=== PATIENT | female | born 1960 | race Caucasian/White ===

== ENCOUNTER 2016-07-25 17:36 | Emergency (ER) | payer MEDICARE, MEDICAID ==
--- NOTE | 2016-07-25 17:49 | ER Document Report ---
ED Medical Screen (RME) - General Stated Complaint: ABDOMINAL PAIN Time seen by provider: 17:48 Mode of Arrival: Ambulatory Information source: Patient Notes: 55-year-old female complaining of deep left-sided abdominal pain and now thinks she has another abscess to the area. She has a history of Crohn's disease and has mesh in her abdomen. She has had an abscess in that area that was incised January 2016. No fever, no dysuria. Chronic diarrhea no vomiting today. TRAVEL OUTSIDE OF THE [place] IN LAST 30 DAYS: No - Related Data Allergies/Adverse Reactions: adhesive tape [Adhesive Tape] Allergy (Verified 08/11/15 08:09) cephalexin monohydrate [From Keflex] Allergy (Verified 08/11/15 08:09) codeine [Codeine] Allergy (Verified 08/11/15 08:09) erythromycin base [Erythromycin Base] Allergy (Verified 08/11/15 08:09) metronidazole [From Flagyl] Allergy (Verified 08/11/15 08:09) Metronidazole HCl [From Flagyl] Allergy (Verified 08/11/15 08:09) oxaprozin [From Daypro] Allergy (Verified 08/11/15 08:09) Penicillins Allergy (Verified 08/11/15 08:09) Past Medical History - Past Medical History Cardiac Medical History: Reports: Hx Hypercholesterolemia Denies: Hx Atrial Fibrillation, Hx Coronary Artery Disease, Hx Heart Attack, Hx Hypertension, Hx Peripheral Vascular Disease, Hx Pulmonary Embolism Pulmonary Medical History: Reports: Hx Asthma Endocrine Medical History: Denies: Hx Diabetes Mellitus Type 1, Hx Diabetes Mellitus Type 2, Hx Graves' Disease GI Medical History: Reports: Hx Crohn's Disease Musculoskeltal Medical History: Reports Hx Arthritis, Reports Hx Fibromyalgia Psychiatric Medical History: Denies: Hx Depression Infectious Medical History: Denies: Hx MRSA Past Surgical History: Reports: Hx Abdominal Surgery, Hx Appendectomy, Hx Bowel Surgery - small bowel, hernia x 2, Hx Hysterectomy - Immunizations Immunizations up to date: Yes Hx Diphtheria, Pertussis, Tetanus Vaccination: Yes Physical Exam - Vital signs Vitals: Temp Pulse Resp BP Pulse Ox 98.4 F 69 18 151/58 H 97 07/25/16 17:46 07/25/16 17:46 07/25/16 17:46 07/25/16 17:46 07/25/16 17:46 Course - Vital Signs Vital signs: Temp Pulse Resp BP Pulse Ox 98.4 F 69 18 151/58 H 97 07/25/16 17:46 07/25/16 17:46 07/25/16 17:46 07/25/16 17:46 07/25/16 17:46
[2016-07-25] MEDS ORDERED: CLINDAMYCIN 600 MG/D5W RTU 50 ML IV ONE (18:28)
[2016-07-25] MEDS ORDERED: MORPHINE SULFATE 10 MG/ML INJ IV ONE (18:28)
--- NOTE | 2016-07-25 18:31 | ER Document Report ---
ED GI/ - General Chief Complaint: Abdominal Pain Stated Complaint: ABDOMINAL PAIN Mode of Arrival: Ambulatory Information source: Patient TRAVEL OUTSIDE OF THE [place] IN LAST 30 DAYS: No - HPI Patient complains to provider of: Abdominal pain Onset: Just prior to arrival Timing/Duration: Sudden Quality of pain: Achy, Burning Severity at maximum: Moderate Severity in ED: Moderate Pain Level: 3 Location: Other - Mid left abdominal wall Associated symptoms: None Exacerbated by: Denies Relieved by: Denies Similar symptoms previously: Yes Recently seen / treated by doctor: No Notes: 07/25/16 18:29 Patient is a 55-year-old female with a history of Crohn's disease with multiple abdominal surgeries previously and mesh contained in the periumbilical area, who presents to the emergency room today complaining of a painful area of increased erythema in the left mid abdomen consistent with abdominal wall abscess and cellulitis which she's had in the past, these symptoms started just approximate 1 hour prior to arrival in the emergency room, she states last time she had one of these she waited overnight for treatment and the abscess had grown to a much larger size, therefore she came to the emergency room immediately upon noticing it, she denies any fevers, no injury, no nausea or vomiting - Related Data Allergies/Adverse Reactions: adhesive tape [Adhesive Tape] Allergy (Verified 08/11/15 08:09) cephalexin monohydrate [From Keflex] Allergy (Verified 08/11/15 08:09) codeine [Codeine] Allergy (Verified 08/11/15 08:09) erythromycin base [Erythromycin Base] Allergy (Verified 08/11/15 08:09) metronidazole [From Flagyl] Allergy (Verified 08/11/15 08:09) Metronidazole HCl [From Flagyl] Allergy (Verified 08/11/15 08:09) oxaprozin [From Daypro] Allergy (Verified 08/11/15 08:09) Penicillins Allergy (Verified 08/11/15 08:09) Past Medical History - General Information source: Patient - Social History Smoking Status: Never Smoker Family History: CAD, DM, Hyperlipidemia - Past Medical History Cardiac Medical History: Reports: Hx Hypercholesterolemia Denies: Hx Atrial Fibrillation, Hx Coronary Artery Disease, Hx Heart Attack, Hx Hypertension, Hx Peripheral Vascular Disease, Hx Pulmonary Embolism Pulmonary Medical History: Reports: Hx Asthma Endocrine Medical History: Denies: Hx Diabetes Mellitus Type 1, Hx Diabetes Mellitus Type 2, Hx Graves' Disease Renal/ Medical History: Denies: Hx Peritoneal Dialysis GI Medical History: Reports: Hx Crohn's Disease Musculoskeltal Medical History: Reports Hx Arthritis, Reports Hx Fibromyalgia Psychiatric Medical History: Denies: Hx Depression Infectious Medical History: Denies: Hx MRSA Past Surgical History: Reports: Hx Abdominal Surgery, Hx Appendectomy, Hx Bowel Surgery - small bowel, hernia x 2, Hx Hysterectomy - Immunizations Immunizations up to date: Yes Hx Diphtheria, Pertussis, Tetanus Vaccination: Yes Review of Systems - Review of Systems Constitutional: No symptoms reported EENT: No symptoms reported Cardiovascular: No symptoms reported Respiratory: No symptoms reported Gastrointestinal: No symptoms reported Genitourinary: No symptoms reported Female Genitourinary: No symptoms reported Musculoskeletal: No symptoms reported Skin: See HPI Hematologic/Lymphatic: No symptoms reported Neurological/Psychological: No symptoms reported -: Yes All other systems reviewed and negative Physical Exam - Vital signs Vitals: Temp Pulse Resp BP Pulse Ox 98.4 F 69 18 151/58 H 97 07/25/16 17:46 07/25/16 17:46 07/25/16 17:46 07/25/16 17:46 07/25/16 17:46 Interpretation: Normal - General General appearance: Appears well, Alert - HEENT Head: Normocephalic, Atraumatic Eyes: Normal Pupils: PERRL - Respiratory Respiratory status: No respiratory distress Chest status: Nontender Breath sounds: Normal Chest palpation: Normal - Cardiovascular Rhythm: Regular Heart sounds: Normal auscultation Murmur: No - Abdominal Inspection: Normal Distension: No distension Bowel sounds: Normal Tenderness: Tender - In the left mid abdomen adjacent to the umbilicus there is a 2 cm area of mild erythema and induration, there is tenderness, no fluctuance , no drainage Organomegaly: No organomegaly - Back Back: Normal, Nontender - Extremities General upper extremity: Normal inspection, Nontender, Normal color, Normal ROM , Normal temperature General lower extremity: Normal inspection, Nontender, Normal color, Normal ROM , Normal temperature, Normal weight bearing. No: Christina's sign - Neurological Neuro grossly intact: Yes Cognition: Normal Orientation: AAOx4 [place] Coma Scale Eye Opening: Spontaneous [place] Coma Scale Verbal: Oriented [place] Coma Scale Motor: Obeys Commands [place] Coma Scale Total: 15 Speech: Normal Motor strength normal: LUE, RUE, LLE, RLE Sensory: Normal - Psychological Associated symptoms: Normal affect, Normal mood - Skin Skin Temperature: Warm Skin Moisture: Dry Skin Color: Normal Course - Re-evaluation Re-evalutation: 07/25/16 18:30 I performed a bedside ultrasound to evaluate the area of concern, no fluid collection was observed 07/25/16 20:15 Lab findings were discussed with patient at bedside, she was given a dose of IV clindamycin as well as pain medication, she was advised to follow-up with her primary care provider in one to 2 days or return if symptoms worsen, she will be discharged with antibiotics and pain medication, patient acknowledges understanding and agreement with this plan - Vital Signs Vital signs: Temp Pulse Resp BP Pulse Ox 98.4 F 64 18 151/58 H 97 07/25/16 17:47 07/25/16 17:47 07/25/16 17:47 07/25/16 17:47 07/25/16 17:47 - Laboratory Result Diagrams: 07/25/16 18:20 07/25/16 18:20 Laboratory results interpreted by me: 07/25/16 07/25/16 07/25/16 18:20 18:20 18:50 RDW 14.4 H BUN 21 H Lipase 325.0 H Urine Blood MODERATE H Procedures - Ultrasound/Bedside Ultrasound/Bedside Time completed: 18:31 Ultrasound: Other - Ultrasound was performed over the area of erythema and induration left mid abdomen, no fluid collection was noted Discharge - Discharge Clinical Impression: Abdominal wall cellulitis Condition: Stable Disposition: HOME, SELF-CARE Instructions: Cellulitis ([facility]) Additional Instructions: Follow up with your primary care provider in one to 2 days. Return to the emergency room immediately if symptoms worsen or any additional concerns. Prescriptions: Clindamycin HCl [Cleocin 150 mg Capsule] 450 mg PO Q6 10 Days Hydrocodone/Acetaminophen [Hydrocodon-Acetaminophen 5-325] 1 each PO Q6 #20 tablet
[2016-07-25 18:37] LABS: ABSOLUTE BASOPHILS # (AUTO) 0.1 10^3/uL (0.0-0.2); ABSOLUTE EOSINOPHILS # (AUTO) 0.1 10^3/uL (0.0-0.6); ABSOLUTE LYMPHOCYTES (AUTO) 2.7 10^3/uL (0.5-4.7); ABSOLUTE MONOCYTES (AUTO) 0.6 10^3/uL (0.1-1.4); ABSOLUTE NEUT (AUTO) 3.8 10^3/uL (1.7-8.2); BASOPHILS % (AUTO) 0.8 % (0-2); HEMATOCRIT 39.5 % (36.0-47.0); HEMOGLOBIN 13.3 g/dL (12.0-15.5); HGB HCT DIFFERENCE 0.4; LYMPHOCYTES % (AUTO) 36.6 % (13-45); MEAN CORPUSCULAR HEMOGLOBIN 29.7 pg (27.0-33.4); MEAN CORPUSCULAR HGB CONC 33.6 g/dL (32.0-36.0); MEAN CORPUSCULAR VOLUME 88 fl (80-97); MONOCYTES % (AUTO) 8.4 % (3-13); RED BLOOD COUNT 4.47 10^6/uL (3.72-5.28); RED CELL DISTRIBUTION WIDTH 14.4 % (11.5-14.0); SEGMENTED NEUTROPHILS % (AUTO) 52.2 % (42-78); WHITE BLOOD COUNT 7.3 10^3/uL (4.0-10.5)
[2016-07-25 18:55] LABS: ALANINE AMINOTRANSFERASE 23 U/L (9-52); ALBUMIN 3.9 g/dL (3.5-5.0); ALKALINE PHOSPHATASE 118 U/L (38-126); ANION GAP 8 (5-19); ASPARTATE AMINO TRANSFERASE 24 U/L (14-36); BILIRUBIN,TOTAL 0.5 mg/dL (0.2-1.3); BLOOD UREA NITROGEN 21 mg/dL (7-20); CALCIUM 9.7 mg/dL (8.4-10.2); CARBON DIOXIDE 27 mmol/L (22-30); CHLORIDE 106 mmol/L (98-107); CREATININE RESULT 0.92 mg/dL (0.52-1.25); GLUCOSE 93 mg/dL (75-110); POTASSIUM 4.3 mmol/L (3.6-5.0); SODIUM 141.4 mmol/L (137-145); TOTAL PROTEIN 7.4 g/dL (6.3-8.2)
[2016-07-25 19:17] LABS: APPEARANCE,URINE CLEAR; BILIRUBIN,URINE NEGATIVE (NEGATIVE); GLUCOSE, URINE NEGATIVE (NEGATIVE); KETONES,URINE NEGATIVE (NEGATIVE); LEUKOCYTE ESTERASE,URINE NEGATIVE (NEGATIVE); NITRITE,URINE NEGATIVE (NEGATIVE); PROTEIN,URINE NEGATIVE (NEGATIVE); URINE SPECIFIC GRAVITY 1.019; UROBILINOGEN,URINE NEGATIVE mg/dL (<2.0)
[2016-07-25 20:35] VITALS: BP 121/65
== END 2016-07-25 20:34 | disposition home or self-care (01) ==
LOC: ER 17:36
DX: L03.311 Cellulitis of abdominal wall (principal); R10.9 Unspecified abdominal pain; K50.90 Crohn's disease, unspecified, without complications; Z98.890 Other specified postprocedural states
CPT/HCPCS: 99284; 96375; 96365; 36415; 87040; 87086; 83690; 85025; 80053; 81001; J2270

== ENCOUNTER 2016-08-11 17:18 | Emergency (ER) | payer MEDICARE, MEDICAID ==
[2016-08-11] MEDS ORDERED: ONDANSETRON 4 MG TAB.RAPDIS PO ONE (18:03)
--- NOTE | 2016-08-11 18:05 | ER Document Report ---
ED Medical Screen (RME) - General Stated Complaint: ABDOMINAL PAIN Time seen by provider: 18:00 Mode of Arrival: Ambulatory Information source: Patient Notes: Patient complains of abdominal pain that started today. Positive nausea, no vomiting, patient has chronic diarrhea. Denies fever. Patient states her abdomen feels like it's on fire. Patient has a history of Crohn's. Patient states she's had 2 1/2 feet of her intestines removed. I have greeted and performed a rapid initial assessment of this patient. A comprehensive ED assessment and evaluation of the patient, analysis of test results and completion of the medical decision making process will be conducted by additional ED providers. TRAVEL OUTSIDE OF THE [place] IN LAST 30 DAYS: No - Related Data Allergies/Adverse Reactions: adhesive tape [Adhesive Tape] Allergy (Verified 08/11/16 18:03) cephalexin monohydrate [From Keflex] Allergy (Verified 08/11/16 18:03) codeine [Codeine] Allergy (Verified 08/11/16 18:03) erythromycin base [Erythromycin Base] Allergy (Verified 08/11/16 18:03) metronidazole [From Flagyl] Allergy (Verified 08/11/16 18:03) Metronidazole HCl [From Flagyl] Allergy (Verified 08/11/16 18:03) oxaprozin [From Daypro] Allergy (Verified 08/11/16 18:03) Penicillins Allergy (Verified 08/11/16 18:03) Past Medical History - Past Medical History Cardiac Medical History: Reports: Hx Hypercholesterolemia Denies: Hx Atrial Fibrillation, Hx Coronary Artery Disease, Hx Heart Attack, Hx Hypertension, Hx Peripheral Vascular Disease, Hx Pulmonary Embolism Pulmonary Medical History: Reports: Hx Asthma Endocrine Medical History: Denies: Hx Diabetes Mellitus Type 1, Hx Diabetes Mellitus Type 2, Hx Graves' Disease Renal/ Medical History: Denies: Hx Peritoneal Dialysis GI Medical History: Reports: Hx Crohn's Disease Musculoskeltal Medical History: Reports Hx Arthritis, Reports Hx Fibromyalgia Psychiatric Medical History: Denies: Hx Depression Infectious Medical History: Denies: Hx MRSA Past Surgical History: Reports: Hx Abdominal Surgery, Hx Appendectomy, Hx Bowel Surgery - small bowel, hernia x 2, Hx Hysterectomy - Immunizations Immunizations up to date: Yes Hx Diphtheria, Pertussis, Tetanus Vaccination: Yes Physical Exam - Vital signs Vitals: Temp Pulse Resp BP Pulse Ox 98.0 F 62 16 140/71 H 96 08/11/16 17:56 08/11/16 17:56 08/11/16 17:56 08/11/16 17:56 08/11/16 17:56 - Abdominal Notes: Abdomen soft, diffuse tenderness, bowel sounds hyperactive on exam. Course - Vital Signs Vital signs: Temp Pulse Resp BP Pulse Ox 98.0 F 62 16 140/71 H 96 08/11/16 17:56 08/11/16 17:56 08/11/16 17:56 08/11/16 17:56 08/11/16 17:56
[2016-08-11 18:29] LABS: ABSOLUTE EOSINOPHILS # (AUTO) 0.2 10^3/uL (0.0-0.6); ABSOLUTE LYMPHOCYTES (AUTO) 2.2 10^3/uL (0.5-4.7); ABSOLUTE MONOCYTES (AUTO) 0.7 10^3/uL (0.1-1.4); ABSOLUTE NEUT (AUTO) 3.5 10^3/uL (1.7-8.2); BASOPHILS % (AUTO) 0.7 % (0-2); EOSINOPHILS % (AUTO) 2.4 % (0-6); HEMATOCRIT 39.3 % (36.0-47.0); HEMOGLOBIN 13.1 g/dL (12.0-15.5); LYMPHOCYTES % (AUTO) 33.4 % (13-45); MEAN CORPUSCULAR HEMOGLOBIN 29.4 pg (27.0-33.4); MEAN CORPUSCULAR HGB CONC 33.3 g/dL (32.0-36.0); MEAN CORPUSCULAR VOLUME 88 fl (80-97); MONOCYTES % (AUTO) 10.8 % (3-13); RED BLOOD COUNT 4.45 10^6/uL (3.72-5.28); RED CELL DISTRIBUTION WIDTH 14.9 % (11.5-14.0); SEGMENTED NEUTROPHILS % (AUTO) 52.7 % (42-78); WHITE BLOOD COUNT 6.7 10^3/uL (4.0-10.5)
[2016-08-11 18:35] LABS: APPEARANCE,URINE SLIGHTLY-CLOUDY; BILIRUBIN,URINE NEGATIVE (NEGATIVE); GLUCOSE, URINE NEGATIVE (NEGATIVE); KETONES,URINE TRACE mg/dL (NEGATIVE); LEUKOCYTE ESTERASE,URINE NEGATIVE (NEGATIVE); NITRITE,URINE NEGATIVE (NEGATIVE); PROTEIN,URINE NEGATIVE (NEGATIVE); URINE SPECIFIC GRAVITY 1.031; UROBILINOGEN,URINE NEGATIVE mg/dL (<2.0)
[2016-08-11 18:51] LABS: ALANINE AMINOTRANSFERASE 25 U/L (9-52); ALBUMIN 4.3 g/dL (3.5-5.0); ALKALINE PHOSPHATASE 96 U/L (38-126); ANION GAP 10 (5-19); ASPARTATE AMINO TRANSFERASE 20 U/L (14-36); BILIRUBIN,TOTAL 0.4 mg/dL (0.2-1.3); BLOOD UREA NITROGEN 24 mg/dL (7-20); CALCIUM 9.8 mg/dL (8.4-10.2); CARBON DIOXIDE 27 mmol/L (22-30); CHLORIDE 106 mmol/L (98-107); CREATININE RESULT 0.88 mg/dL (0.52-1.25); GLUCOSE 91 mg/dL (75-110); LIPASE 333.6 U/L (23-300); POTASSIUM 4.6 mmol/L (3.6-5.0)
[2016-08-11] MEDS ORDERED: MORPHINE SULFATE 10 MG/ML INJ IV ONE (22:21)
[2016-08-11] MEDS ORDERED: METHYLPREDNISOLONE INJ 125 MG/2 ML SDV IV ONE (22:21)
[2016-08-11] MEDS ORDERED: NORMAL SALINE 1000 ML 1,000 ML IV ONE (22:21)
--- NOTE | 2016-08-11 22:23 | ER Document Report ---
ED GI/ - General Chief Complaint: Abdominal Pain Stated Complaint: ABDOMINAL PAIN Time seen by provider: 22:22 Mode of Arrival: Ambulatory Notes: Patient is a 55-year-old female that comes emergency department with chief complaint of mid abdominal pain that started today, she states she feels nauseated, she states that she feels like she has a twisting sensation in her belly. Asked medical history of Crohn's, she has also had partial small bowel resection secondary to obstructions, she has a periumbilical mesh, she is in the middle of a referral to a different investment analyst reportedly, she states she is on no medications for Crohn's at this time. She denies changes in bowel movement, has chronic diarrhea, denies bloody bowel movements, denies fever. TRAVEL OUTSIDE OF THE [place] IN LAST 30 DAYS: No - Related Data Allergies/Adverse Reactions: adhesive tape [Adhesive Tape] Allergy (Verified 08/11/16 18:03) cephalexin monohydrate [From Keflex] Allergy (Verified 08/11/16 18:03) codeine [Codeine] Allergy (Verified 08/11/16 18:03) erythromycin base [Erythromycin Base] Allergy (Verified 08/11/16 18:03) metronidazole [From Flagyl] Allergy (Verified 08/11/16 18:03) Metronidazole HCl [From Flagyl] Allergy (Verified 08/11/16 18:03) oxaprozin [From Daypro] Allergy (Verified 08/11/16 18:03) Penicillins Allergy (Verified 08/11/16 18:03) Past Medical History - General Information source: Patient - Social History Smoking Status: Never Smoker Chew tobacco use (# tins/day): No Frequency of alcohol use: None Drug Abuse: None Lives with: Alone Family History: CAD, DM, Hyperlipidemia Patient has suicidal ideation: No Patient has homicidal ideation: No - Past Medical History Cardiac Medical History: Reports: Hx Hypercholesterolemia Denies: Hx Atrial Fibrillation, Hx Coronary Artery Disease, Hx Heart Attack, Hx Hypertension, Hx Peripheral Vascular Disease, Hx Pulmonary Embolism Pulmonary Medical History: Reports: Hx Asthma Endocrine Medical History: Denies: Hx Diabetes Mellitus Type 1, Hx Diabetes Mellitus Type 2, Hx Graves' Disease Renal/ Medical History: Denies: Hx Peritoneal Dialysis GI Medical History: Reports: Hx Crohn's Disease Musculoskeltal Medical History: Reports Hx Arthritis, Reports Hx Fibromyalgia Psychiatric Medical History: Denies: Hx Depression Infectious Medical History: Denies: Hx MRSA Past Surgical History: Reports: Hx Abdominal Surgery, Hx Appendectomy, Hx Bowel Surgery - small bowel, hernia x 2, Hx Hysterectomy - Immunizations Immunizations up to date: Yes Hx Diphtheria, Pertussis, Tetanus Vaccination: Yes Review of Systems - Review of Systems Constitutional: No symptoms reported EENT: No symptoms reported Cardiovascular: No symptoms reported Respiratory: No symptoms reported Gastrointestinal: See HPI Genitourinary: No symptoms reported Female Genitourinary: No symptoms reported Musculoskeletal: No symptoms reported Skin: No symptoms reported Hematologic/Lymphatic: No symptoms reported Neurological/Psychological: No symptoms reported Physical Exam - Vital signs Vitals: Temp Pulse Resp BP Pulse Ox 98.0 F 62 16 140/71 H 96 08/11/16 17:56 08/11/16 17:56 08/11/16 17:56 08/11/16 17:56 08/11/16 17:56 Interpretation: Normal - General General appearance: Appears well, Alert In distress: None - HEENT Head: Normocephalic, Atraumatic Eyes: Normal Pupils: PERRL - Respiratory Respiratory status: No respiratory distress Chest status: Nontender Breath sounds: Normal Chest palpation: Normal - Cardiovascular Rhythm: Regular Heart sounds: Normal auscultation Murmur: No - Abdominal Inspection: Normal Distension: No distension Bowel sounds: Normal Tenderness: Tender - There is tenderness in the mid abdomen generally, no specific upper or lower abdominal tenderness, no guarding, no rigidity Organomegaly: No organomegaly - Back Back: Normal, Nontender. No: Tender, CVA tenderness - Extremities General upper extremity: Normal inspection, Nontender, Normal color, Normal ROM , Normal temperature General lower extremity: Normal inspection, Nontender, Normal color, Normal ROM , Normal temperature, Normal weight bearing. No: Christina's sign - Neurological Neuro grossly intact: Yes Cognition: Normal Orientation: AAOx4 [place] Coma Scale Eye Opening: Spontaneous [place] Coma Scale Verbal: Oriented [place] Coma Scale Motor: Obeys Commands [place] Coma Scale Total: 15 Speech: Normal Motor strength normal: LUE, RUE, LLE, RLE Sensory: Normal - Psychological Associated symptoms: Normal affect, Normal mood - Skin Skin Temperature: Warm Skin Moisture: Dry Skin Color: Normal Course - Re-evaluation Re-evalutation: CBC and chemistry are unremarkable. Urinalysis shows elevated specific gravity and is otherwise unremarkable. Patient has some mid abdominal tenderness on exam, no guarding, no rigidity, patient is generally well-appearing and conversational. Acute abdominal series shows a couple of dilated loops and some air-fluid levels him a after discussion with patient and she states she still having pain, CAT scan obtained to rule out obstruction or other concerning abnormality in the setting of Crohn's disease without treatment. Discussed with Dr. Hendricks per [facility] guidelines. 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 Abdomen exam unchanged and remains without guarding. Patient is very satisfied with this, patient will be treated with prednisone, pain medication, instructed to follow-up within the next couple of days with her provider, discussed return precautions, patient states understanding and agreement with plan. - Vital Signs Vital signs: Temp Pulse Resp BP Pulse Ox 98.3 F 70 12 127/71 H 97 08/12/16 04:15 08/12/16 04:15 08/12/16 04:15 08/12/16 04:15 08/12/16 04:15 - Laboratory Result Diagrams: 08/11/16 18:05 08/11/16 18:05 Laboratory results interpreted by me: 08/11/16 08/11/16 08/11/16 18:05 18:05 18:05 RDW 14.9 H BUN 24 H Lipase 333.6 H Urine Ketones TRACE H Urine Blood SMALL H Discharge - Discharge Clinical Impression: Abdominal pain Qualifiers: Abdominal location: generalized Qualified Code(s): R10.84 - Generalized abdominal pain Crohns disease Qualifiers: Gastrointestinal tract location: unspecified location Digestive disease complication type: unspecified complication Qualified Code(s): K50.919 - Crohn' s disease, unspecified, with unspecified complications Condition: Stable Disposition: HOME, SELF-CARE Additional Instructions: The CAT scan does not show obstruction or any acute findings. Take the medications as prescribed, follow-up closely with your primary care provider. Please return to the emergency department for any concerning or worsening symptoms including severe abdominal pain, vomiting, bloody bowel movements, fever, etc. Prescriptions: Oxycodone HCl/Acetaminophen [Percocet 5-325 mg Tablet] 1 - 2 tab PO Q4H PRN #20 tablet PRN Reason: Prednisone 20 mg PO DAILY #15 tablet
[2016-08-12] MEDS ORDERED: HYDROMORPHONE HCL INJ/PF 2 MG/ML AMPULE IV ONE (01:39)
[2016-08-12 04:23] VITALS: BP 127/71
== END 2016-08-12 04:23 | disposition home or self-care (01) ==
LOC: ER 17:18
DX: K50.919 Crohn's disease, unspecified, with unspecified complications (principal); R10.84 Generalized abdominal pain; R10.9 Unspecified abdominal pain; R11.0 Nausea; R59.0 Localized enlarged lymph nodes; Q61.01 Congenital single renal cyst; J45.909 Unspecified asthma, uncomplicated; Z90.49 Acquired absence of other specified parts of digestive tract; Z91.048 Other nonmedicinal substance allergy status; Z88.1 Allergy status to other antibiotic agents; Z88.5 Allergy status to narcotic agent; Z88.8 Allergy status to other drugs, medicaments and biological substances; Z88.0 Allergy status to penicillin; Z90.710 Acquired absence of both cervix and uterus
CPT/HCPCS: 99284; 96361; 96374; 96375; 36415; 83690; 85025; 80053; 81001; 74022; 74177; A9270; J2930; J2270; J1170; J7030; S0119

== ENCOUNTER 2016-10-03 13:37 | Emergency (ER) | payer MEDICARE, MEDICAID ==
--- NOTE | 2016-10-03 14:24 | ER Document Report ---
ED Medical Screen (RME) - General Chief Complaint: Chest Pain Stated Complaint: CHEST PAIN/RIGHT FOOT SWELLING Notes: Patient says that she is having chest pains since she awakened this morning. She is feeling tired, feels as if her chest hurts, and noted her right foot swelling intermittently this morning. Has been very nauseated but not vomiting. Patient was seen here in this emergency department 5 or 6 weeks ago for some chest pains and was advised at that time that she had an "irregular heartbeat". Her EKG from that visit shows frequent PVCs, unilateral, but otherwise normal EKG. Her EKG here today looks similar with unifocal PVCs present. Right foot is perhaps slightly swollen, according to the patient. She has an excellent dorsalis pedis pulse. No pain in the posterior lower right leg and negative Homans. TRAVEL OUTSIDE OF THE [place] IN LAST 30 DAYS: No - Related Data Allergies/Adverse Reactions: adhesive tape [Adhesive Tape] Allergy (Verified 10/03/16 14:05) cephalexin monohydrate [From Keflex] Allergy (Verified 10/03/16 14:05) codeine [Codeine] Allergy (Verified 10/03/16 14:05) erythromycin base [Erythromycin Base] Allergy (Verified 10/03/16 14:05) metronidazole [From Flagyl] Allergy (Verified 10/03/16 14:05) Metronidazole HCl [From Flagyl] Allergy (Verified 10/03/16 14:05) oxaprozin [From Daypro] Allergy (Verified 10/03/16 14:05) Penicillins Allergy (Verified 10/03/16 14:05) Past Medical History - Past Medical History Cardiac Medical History: Reports: Hx Hypercholesterolemia Denies: Hx Atrial Fibrillation, Hx Coronary Artery Disease, Hx Heart Attack, Hx Hypertension, Hx Peripheral Vascular Disease, Hx Pulmonary Embolism Pulmonary Medical History: Reports: Hx Asthma Endocrine Medical History: Denies: Hx Diabetes Mellitus Type 1, Hx Diabetes Mellitus Type 2, Hx Graves' Disease Renal/ Medical History: Denies: Hx Peritoneal Dialysis GI Medical History: Reports: Hx Crohn's Disease Musculoskeltal Medical History: Reports Hx Arthritis, Reports Hx Fibromyalgia Psychiatric Medical History: Denies: Hx Depression Infectious Medical History: Denies: Hx MRSA Past Surgical History: Reports: Hx Abdominal Surgery, Hx Appendectomy, Hx Bowel Surgery - small bowel, hernia x 2, Hx Cholecystectomy, Hx Hysterectomy - Immunizations Immunizations up to date: Yes Hx Diphtheria, Pertussis, Tetanus Vaccination: Yes Physical Exam - Vital signs Vitals: Temp Pulse Resp BP Pulse Ox 98.6 F 65 16 138/64 H 97 10/03/16 14:08 10/03/16 14:08 10/03/16 14:08 10/03/16 14:08 10/03/16 14:08 Course - Vital Signs Vital signs: Temp Pulse Resp BP Pulse Ox 98.6 F 65 16 138/64 H 97 10/03/16 14:08 10/03/16 14:08 10/03/16 14:08 10/03/16 14:08 10/03/16 14:08
[2016-10-03 14:50] LABS: ABSOLUTE BASOPHILS # (AUTO) 0.1 10^3/uL (0.0-0.2); ABSOLUTE EOSINOPHILS # (AUTO) 0.2 10^3/uL (0.0-0.6); ABSOLUTE LYMPHOCYTES (AUTO) 2.2 10^3/uL (0.5-4.7); ABSOLUTE MONOCYTES (AUTO) 0.6 10^3/uL (0.1-1.4); ABSOLUTE NEUT (AUTO) 3.6 10^3/uL (1.7-8.2); BASOPHILS % (AUTO) 0.9 % (0-2); EOSINOPHILS % (AUTO) 2.3 % (0-6); HEMATOCRIT 39.9 % (36.0-47.0); HEMOGLOBIN 13.5 g/dL (12.0-15.5); HGB HCT DIFFERENCE 0.6; LYMPHOCYTES % (AUTO) 33.1 % (13-45); MEAN CORPUSCULAR HEMOGLOBIN 29.5 pg (27.0-33.4); MEAN CORPUSCULAR HGB CONC 33.8 g/dL (32.0-36.0); MEAN CORPUSCULAR VOLUME 87 fl (80-97); MONOCYTES % (AUTO) 9.5 % (3-13); RED BLOOD COUNT 4.57 10^6/uL (3.72-5.28); RED CELL DISTRIBUTION WIDTH 13.8 % (11.5-14.0); SEGMENTED NEUTROPHILS % (AUTO) 54.2 % (42-78); WHITE BLOOD COUNT 6.7 10^3/uL (4.0-10.5)
[2016-10-03 15:08] LABS: ALANINE AMINOTRANSFERASE 28 U/L (9-52); ALBUMIN 4.4 g/dL (3.5-5.0); ALKALINE PHOSPHATASE 97 U/L (38-126); ANION GAP 13 (5-19); ASPARTATE AMINO TRANSFERASE 24 U/L (14-36); BILIRUBIN,DIRECT 0.2 mg/dL (0.0-0.4); BILIRUBIN,TOTAL 0.4 mg/dL (0.2-1.3); BLOOD UREA NITROGEN 15 mg/dL (7-20); CALCIUM 9.4 mg/dL (8.4-10.2); CARBON DIOXIDE 28 mmol/L (22-30); CHLORIDE 105 mmol/L (98-107); CREATINE KINASE 87 U/L (30-135); CREATININE RESULT 0.75 mg/dL (0.52-1.25); GLUCOSE 107 mg/dL (75-110); POTASSIUM 4.3 mmol/L (3.6-5.0); SODIUM 145.9 mmol/L (137-145); TOTAL PROTEIN 7.1 g/dL (6.3-8.2)
[2016-10-03 15:20] LABS: CREATINE KINASE MB 0.71 ng/mL (<4.55)
[2016-10-03 15:22] LABS: TROPONIN I < 0.012 ng/mL
[2016-10-03] MEDS ORDERED: ASPIRIN 81 MG TABLET, CHEWABLE PO ONE (15:54)
[2016-10-03] MEDS ORDERED: KETOROLAC TROMETHAMINE 60 MG/2 ML SDV IM ONE (15:59)
--- NOTE | 2016-10-03 18:17 | ER Document Report ---
ED General - General Chief Complaint: Chest Pain Stated Complaint: CHEST PAIN/RIGHT FOOT SWELLING Notes: Patient is a 56-year-old female who presents with chest pain that has been bothersome to her for the past 6 weeks. She was seen for similar symptoms on and had reassuring negative workup. She states that she has essentially had daily chest pain since the pain got worse today around noon. It has been constant since. She denies any shortness of breath. No radiation of the pain. She's had some nausea but no vomiting. She describes the pain as sharp and stabbing. TRAVEL OUTSIDE OF THE [place] IN LAST 30 DAYS: No - Related Data Allergies/Adverse Reactions: adhesive tape [Adhesive Tape] Allergy (Verified 10/03/16 14:05) cephalexin monohydrate [From Keflex] Allergy (Verified 10/03/16 14:05) codeine [Codeine] Allergy (Verified 10/03/16 14:05) erythromycin base [Erythromycin Base] Allergy (Verified 10/03/16 14:05) metronidazole [From Flagyl] Allergy (Verified 10/03/16 14:05) Metronidazole HCl [From Flagyl] Allergy (Verified 10/03/16 14:05) oxaprozin [From Daypro] Allergy (Verified 10/03/16 14:05) Penicillins Allergy (Verified 10/03/16 14:05) Past Medical History - General Information source: Patient, [facility] Records - Social History Smoking Status: Former Smoker Frequency of alcohol use: None Drug Abuse: None Family History: CAD, DM, Hyperlipidemia Patient has suicidal ideation: No Patient has homicidal ideation: No - Past Medical History Cardiac Medical History: Reports: Hx Hypercholesterolemia Denies: Hx Atrial Fibrillation, Hx Coronary Artery Disease, Hx Heart Attack, Hx Hypertension, Hx Peripheral Vascular Disease, Hx Pulmonary Embolism Pulmonary Medical History: Reports: Hx Asthma Endocrine Medical History: Denies: Hx Diabetes Mellitus Type 1, Hx Diabetes Mellitus Type 2, Hx Graves' Disease Renal/ Medical History: Denies: Hx Peritoneal Dialysis GI Medical History: Reports: Hx Crohn's Disease Musculoskeltal Medical History: Reports Hx Arthritis, Reports Hx Fibromyalgia Psychiatric Medical History: Denies: Hx Depression Infectious Medical History: Denies: Hx MRSA Past Surgical History: Reports: Hx Abdominal Surgery, Hx Appendectomy, Hx Bowel Surgery - small bowel, hernia x 2, Hx Cholecystectomy, Hx Hysterectomy - Immunizations Immunizations up to date: Yes Hx Diphtheria, Pertussis, Tetanus Vaccination: Yes Review of Systems - Review of Systems Notes: REVIEW OF SYSTEMS: CONSTITUTIONAL : Denies fever, chills, or sweats. Denies recent illness. EENT: Denies eye, ear, throat, or mouth pain or symptoms. Denies nasal or sinus congestion. CARDIOVASCULAR: As per history of present illness. RESPIRATORY: Denies cough, cold, or chest congestion. Denies shortness of breath, difficulty breathing, or wheezing. GASTROINTESTINAL: Denies abdominal pain. GENITOURINARY: Denies difficulty urinating, painful urination, burning, frequency, or blood in urine. MUSCULOSKELETAL: Denies neck or back pain or joint pain or swelling. SKIN: Denies rash or skin lesions. HEMATOLOGIC : Denies easy bruising or bleeding. LYMPHATIC: Denies swollen, enlarged glands. NEUROLOGICAL: Denies altered mental status or loss of consciousness. Denies headache. PSYCHIATRIC: Denies anxiety or stress or depression. ALL OTHER SYSTEMS REVIEWED AND NEGATIVE. Physical Exam - Vital signs Vitals: Temp Pulse Resp BP Pulse Ox 98.6 F 65 16 138/64 H 97 10/03/16 14:08 10/03/16 14:08 10/03/16 14:08 10/03/16 14:08 10/03/16 14:08 - Notes Notes: PHYSICAL EXAMINATION: GENERAL: Well-appearing, obese adult female, pleasant and conversant and in no acute distress. HEAD: Atraumatic, normocephalic. EYES: Pupils equal round and reactive to light, extraocular movements intact, sclera anicteric, conjunctiva are normal. ENT: nares patent, oropharynx clear without exudates. Moist mucous membranes. NECK: Normal range of motion, supple without lymphadenopathy LUNGS: Breath sounds clear to auscultation bilaterally and equal. No wheezes rales or rhonchi. HEART: Regular rate and rhythm without murmurs ABDOMEN: Soft, nontender, normoactive bowel sounds. No guarding, no rebound. No masses appreciated. EXTREMITIES: Normal range of motion, no pitting or edema. No cyanosis. NEUROLOGICAL: Cranial nerves grossly intact. Normal speech. No gross focal motor or sensory deficits PSYCH: Normal mood, normal affect. SKIN: Warm, Dry, normal turgor, no rashes or lesions noted. Course - Re-evaluation Re-evalutation: 10/03/16 Patient had resolution of her chest pain with the Toradol. Her troponin x 2 is negative. Her EKG is unchanged from previous. She is low risk for PE and her d -dimer is negative. Presentation of chest pain in an otherwise well appearing patient. Low clinical suspicion for ACS given clinical history, exam, EKG without ST elevations or depressions, and negative initial troponin. HEART score less than or equal to 3. PE also seems unlikely given clinical history, absence of tachycardia or dyspnea. Wells score is 0. CXR without evidence of pneumothorax or pneumonia. No widened mediastinum. Aortic dissection also seems unlikely given history, symmetric pulses, CXR, and vitals. Given reassuring evaluation, will plan for discharge home at this time with return precautions and follow-up recommendations. - Vital Signs Vital signs: Temp Pulse Resp BP Pulse Ox 98.8 F 55 L 15 147/78 H 97 10/03/16 20:19 10/03/16 20:19 10/03/16 20:19 10/03/16 20:19 10/03/16 20:19 - Laboratory Result Diagrams: 10/03/16 14:25 10/03/16 14:25 Laboratory results interpreted by me: 10/03/16 14:25 Sodium 145.9 H - Diagnostic Test Radiology reviewed: Reports reviewed - CXR negative - EKG Interpretation by Me Additional EKG results interpreted by me: 10/03/16 23:30 EKG at 1349 shows sinus rhythm with a rate of 67 with frequent PVCs. There is no ST elevation or depression. There is no significant change from previous EKG. Discharge - Discharge Clinical Impression: PVC (premature ventricular contraction) Chest pain Qualifiers: Chest pain type: unspecified Qualified Code(s): R07.9 - Chest pain, unspecified Condition: Stable Disposition: HOME, SELF-CARE Additional Instructions: CHEST PAIN OF UNCLEAR CAUSE: The exact cause of your chest pain isn't clear. Fortunately, there is no evidence of a dangerous medical condition. Further testing may be required to find the source of the pain. Most often, we find that this pain is coming from the chest wall -- the muscles or rib joints in the chest. But chest pain can come from the lung and lung lining, the esophagus, the heart valves or heart lining, and even the stomach or gallbladder. Rest. Eat lightly until the pain is gone. We may prescribe medicine for pain and inflammation. You should call the physician immediately if the pain radiates to the shoulder, jaw or arms; if you start to run a fever or develop a cough; or if you develop shortness of breath, or other new or alarming symptoms. NORMAL EXAM AND WORKUP: At this time, your examination and workup show no significant abnormality. No significant abnormal physical findings were noted. All laboratory, EKG, and imaging (x-ray, CT scans, ultrasound) studies that were ordered show no significant abnormality. Although your examination and all studies that were ordered showed no significant abnormal finding, there are no examinations and no studies that are 100% accurate. There is always the possibility that some abnormality could exist and not be detected with physical examination or within the limits and capabilities of laboratory and other studies. You should return or follow up as you were instructed on your visit today for further evaluation if your symptoms do not resolve. CHEST WALL PAIN: Your chest pain may be coming from the chest wall. This is often caused by straining the muscles or joints in the chest during physical activity, direct trauma, coughing, or vigorous vomiting. Persons with arthritis are especially prone to this type of pain, due to inflammation of the cartilage joints near the breast bone. Occasionally, no cause can be found. Rest from strenuous physical activity. This kind of chest pain is usually made worse by movement of the chest. Depending on the symptoms, we may prescribe medicine for pain, muscle relaxation, and antiinflammatory effects. If the pain is new, and seems to be due to muscle strain, cold packs can help. Otherwise, apply gentle warmth to the painful area for 15 minutes every hour or two. You should call contact the doctor immediately if things change. Further evaluation is needed if you develop a fever or cough, if the nature of the pain changes, or if you become short of breath. Ultram Ultram is an excellent drug for pain relief. It is not a narcotic, but it works in a similar way. Ultram can take up to two hours for full effect. Although not addicting, Ultram is best avoided in patients with a history of drug abuse. Ultram should not be used with alcohol, sleeping pills, or narcotics. If you're prone to seizures, Ultram can make you more likely to have a seizure. Ultram can be hazardous when combined with MAO-inhibitor antidepressants (such as Nardil or Parnate). Be sure your doctor is aware of all medicines you are taking. Persons with severe liver or kidney disease should increase the time between doses of Ultram. Discuss this with your doctor if you're uncertain. Side effects of Ultram can include dizziness, nausea, constipation, sleepiness, and itching. (These side effects are also seen with narcotic pain medicines.) Please call your doctor if you have other disturbing effects. . FOLLOW-UP CARE: If you have been referred to a physician for follow-up care, call the physician s office for an appointment as you were instructed or within the next two days. If you experience worsening or a significant change in your symptoms, notify the physician immediately or return to the Emergency Department at any time for re-evaluation As discussed, follow up with your primary physician next week. Return to the ER for any worsening symptoms or concens.. Prescriptions: Tramadol HCl [Ultram 50 mg Tablet] 50 mg PO Q8HP PRN #15 tablet PRN Reason: Referrals: DARIO ARZOLA, OCCUPATIONAL THERAPY ASSISTANT-C [Primary Care Provider] - Follow up as needed
[2016-10-03 20:22] VITALS: BP 147/78
--- NOTE | 2016-10-04 16:49 | EKG REPORT ---
SEVERITY:- ABNORMAL ECG - SINUS RHYTHM PAIRED VENTRICULAR PREMATURE COMPLEXES : Confirmed by: Tisha Hill MD 04-Oct-2016 16:48:00
== END 2016-10-03 20:22 | disposition home or self-care (01) ==
LOC: ER 13:37
DX: I49.3 Ventricular premature depolarization (principal); R07.9 Chest pain, unspecified; M79.89 Other specified soft tissue disorders
CPT/HCPCS: 93005; 99285; 96372; 36415; 82553; 82550; 84443; 85025; 80053; 84484; 85379; 71010; 93010; A9270; J1885

== ENCOUNTER 2016-10-19 10:13 | Emergency (ER) | payer MEDICARE, MEDICAID ==
[2016-10-19] MEDS ORDERED: PROMETHAZINE HCL 25 MG TABLET PO ONE (10:32)
[2016-10-19] MEDS ORDERED: HYOSCYAMINE SULFATE 0.125 MG TABLET PO ONE (10:33)
--- NOTE | 2016-10-19 10:35 | ER Document Report ---
ED Medical Screen (RME) - General Chief Complaint: Abdominal Pain Stated Complaint: ABDOMINAL PAIN/DIARRHEA TRAVEL OUTSIDE OF THE [place] IN LAST 30 DAYS: No - HPI Notes: 10/19/16 10:34 Abdominal pain with a history of Crohn's disease one resection with 3 hernia repairs. States chronic diarrhea however now she is just having bile coming out of her rectum. Nausea no vomiting 10/19/16 10:35 I have greeted and performed a rapid initial assessment of this patient. A comprehensive ED assessment and evaluation of the patient, analysis of test results and completion of the medical decision making process will be conducted by additional ED providers. - Related Data Allergies/Adverse Reactions: adhesive tape [Adhesive Tape] Allergy (Verified 10/19/16 10:16) cephalexin monohydrate [From Keflex] Allergy (Verified 10/19/16 10:16) codeine [Codeine] Allergy (Verified 10/19/16 10:16) erythromycin base [Erythromycin Base] Allergy (Verified 10/19/16 10:16) metronidazole [From Flagyl] Allergy (Verified 10/19/16 10:16) Metronidazole HCl [From Flagyl] Allergy (Verified 10/19/16 10:16) oxaprozin [From Daypro] Allergy (Verified 10/19/16 10:16) Penicillins Allergy (Verified 10/19/16 10:16) Past Medical History - Past Medical History Cardiac Medical History: Reports: Hx Hypercholesterolemia Denies: Hx Atrial Fibrillation, Hx Coronary Artery Disease, Hx Heart Attack, Hx Hypertension, Hx Peripheral Vascular Disease, Hx Pulmonary Embolism Pulmonary Medical History: Reports: Hx Asthma Endocrine Medical History: Denies: Hx Diabetes Mellitus Type 1, Hx Diabetes Mellitus Type 2, Hx Graves' Disease Renal/ Medical History: Denies: Hx Peritoneal Dialysis GI Medical History: Reports: Hx Crohn's Disease Musculoskeltal Medical History: Reports Hx Arthritis, Reports Hx Fibromyalgia Psychiatric Medical History: Denies: Hx Depression Infectious Medical History: Denies: Hx MRSA Past Surgical History: Reports: Hx Abdominal Surgery, Hx Appendectomy, Hx Bowel Surgery - small bowel, hernia x 2, Hx Cholecystectomy, Hx Hysterectomy - Immunizations Immunizations up to date: Yes Hx Diphtheria, Pertussis, Tetanus Vaccination: Yes Review of Systems - Review of Systems Gastrointestinal: Abdominal pain Physical Exam - Vital signs Vitals: Temp Pulse Resp BP Pulse Ox 98.5 F 73 18 148/59 H 97 10/19/16 10:18 10/19/16 10:18 10/19/16 10:18 10/19/16 10:18 10/19/16 10:18 - Respiratory Respiratory status: No respiratory distress Chest status: Nontender Breath sounds: Normal Course - Vital Signs Vital signs: Temp Pulse Resp BP Pulse Ox 98.5 F 73 18 148/59 H 97 10/19/16 10:18 10/19/16 10:18 10/19/16 10:18 10/19/16 10:18 10/19/16 10:18
--- NOTE | 2016-10-19 10:52 | ER Document Report ---
ED General - General Chief Complaint: Abdominal Pain Stated Complaint: ABDOMINAL PAIN/DIARRHEA Time seen by provider: 10:49 Mode of Arrival: Ambulatory Information source: Patient Notes: This is a 56-year-old female with a history of Crohn's disease (status post bowel resection in the past), history of chronic diarrhea who presents to the emergency room with diarrhea, abdominal pains, "stomach on fire". Patient denies passing any blood in the diarrhea. She describes the diarrhea is yellowish. Currently, the patient is on no medicines. Allergies: Penicillin, Keflex, Flagyl, erythromycin, codeine. Past medical history: Crohn's disease, chronic diarrhea Past surgical history: Bowel resection Primary care physician: Elías first TRAVEL OUTSIDE OF THE [place] IN LAST 30 DAYS: No - HPI Onset: Last week Onset/Duration: Gradual Quality of pain: Cramping, Dull Severity: Moderate Pain Level: 3 Associated symptoms: Chills, Diarrhea, Nausea. denies: Nonproductive cough, Productive cough, Fever, Vomiting, Shortness of breath Exacerbated by: Denies Relieved by: Denies Similar symptoms previously: Yes Recently seen / treated by doctor: Yes - Related Data Allergies/Adverse Reactions: adhesive tape [Adhesive Tape] Allergy (Verified 10/19/16 10:16) cephalexin monohydrate [From Keflex] Allergy (Verified 10/19/16 10:16) codeine [Codeine] Allergy (Verified 10/19/16 10:16) erythromycin base [Erythromycin Base] Allergy (Verified 10/19/16 10:16) metronidazole [From Flagyl] Allergy (Verified 10/19/16 10:16) Metronidazole HCl [From Flagyl] Allergy (Verified 10/19/16 10:16) oxaprozin [From Daypro] Allergy (Verified 10/19/16 10:16) Penicillins Allergy (Verified 10/19/16 10:16) Past Medical History - General Information source: Patient - Social History Smoking Status: Never Smoker Cigarette use (# per day): No Chew tobacco use (# tins/day): No Frequency of alcohol use: None Drug Abuse: None Lives with: Family Family History: CAD, DM, Hyperlipidemia Patient has suicidal ideation: No Patient has homicidal ideation: No - Past Medical History Cardiac Medical History: Reports: Hx Hypercholesterolemia Denies: Hx Atrial Fibrillation, Hx Coronary Artery Disease, Hx Heart Attack, Hx Hypertension, Hx Peripheral Vascular Disease, Hx Pulmonary Embolism Pulmonary Medical History: Reports: Hx Asthma Endocrine Medical History: Denies: Hx Diabetes Mellitus Type 1, Hx Diabetes Mellitus Type 2, Hx Graves' Disease Renal/ Medical History: Denies: Hx Peritoneal Dialysis GI Medical History: Reports: Hx Crohn's Disease Musculoskeltal Medical History: Reports Hx Arthritis, Reports Hx Fibromyalgia Psychiatric Medical History: Denies: Hx Depression Infectious Medical History: Denies: Hx MRSA Past Surgical History: Reports: Hx Abdominal Surgery, Hx Appendectomy, Hx Bowel Surgery - small bowel, hernia x 2, Hx Cholecystectomy, Hx Hysterectomy - Immunizations Immunizations up to date: Yes Hx Diphtheria, Pertussis, Tetanus Vaccination: Yes Review of Systems - Review of Systems Constitutional: Chills. denies: Fever EENT: No symptoms reported Cardiovascular: No symptoms reported Respiratory: No symptoms reported Gastrointestinal: See HPI Genitourinary: No symptoms reported Female Genitourinary: No symptoms reported Musculoskeletal: No symptoms reported Skin: No symptoms reported Hematologic/Lymphatic: No symptoms reported Neurological/Psychological: No symptoms reported Physical Exam - Vital signs Vitals: Temp Pulse Resp BP Pulse Ox 98.5 F 73 18 148/59 H 97 10/19/16 10:18 10/19/16 10:18 10/19/16 10:18 10/19/16 10:18 10/19/16 10:18 Notes: Physical exam: GENERAL: 56-year-old female, alert and oriented 3. Patient sitting up in the stretcher and appears comfortable (no distress). When I interview her about her symptoms, she starts crying. HEAD: Atraumatic, normocephalic. EYES: Pupils equal round and reactive to light, extraocular movements intact, sclera anicteric, conjunctiva are normal. ENT: TMs normal, nares patent, oropharynx clear without exudates. Moist mucous membranes. NECK: Normal range of motion, supple without lymphadenopathy or JVD. LUNGS: Breath sounds clear to auscultation bilaterally and equal. No wheezes rales or rhonchi. HEART: Regular rate and rhythm without murmurs, rubs or gallops. ABDOMEN: Soft, normoactive bowel sounds. No tenderness to palpation. No guarding, no rebound. No masses appreciated. EXTREMITIES: Normal range of motion, no pitting or edema. No clubbing or cyanosis. NEUROLOGICAL: Cranial nerves II through XII grossly intact. Normal speech, normal gait. PSYCH: Normal mood, normal affect. SKIN: Warm, Dry, normal turgor, no rashes or lesions noted. Course - Re-evaluation Re-evalutation: 10/19/16 15:32 Patient treated with IV fluids, Phenergan, Zofran, Reglan and Benadryl. She is feeling better. She states that it is the Reglan that his work the best. Repeat abdomen exam is soft without any significant tenderness. - Vital Signs Vital signs: Temp Pulse Resp BP Pulse Ox 97.6 F 65 17 114/57 L 98 10/19/16 14:41 10/19/16 14:41 10/19/16 14:41 10/19/16 14:41 10/19/16 14:41 - Laboratory Result Diagrams: 10/19/16 11:21 10/19/16 12:31 Laboratory results interpreted by me: 10/19/16 12:31 Sodium 145.7 H Chloride 112 H Discharge - Discharge Clinical Impression: vomiting with nausea, Crohn's disease Condition: Stable Disposition: HOME, SELF-CARE Instructions: Nausea or Vomiting, Nonspecific ([facility]), Reglan ([facility]) Additional Instructions: Recommendations: Rest, drink plenty of fluids, advance diet slowly. Take Reglan for nausea. He may take some Benadryl with the Benadryl. Follow-up with your primary care doctor. If you do want another primary care doctor, I left the number for 3 affiliated with this [facility]: Recommendations: Dr. Jelena Bartlett [phone], [place] [address] [phone] Dr Arroyo Address: [address] [place] [address] [place] [address] Dr Denis Address: [address] [place] [address] , [place] [address] Prescriptions: Metoclopramide HCl [Reglan 10 mg Tablet] 1 - 2 tab PO ASDIR PRN #25 tablet PRN Reason:
[2016-10-19] MEDS ORDERED: NORMAL SALINE 1000 ML 1,000 ML IV PRN ×2 (11:23→13:41)
[2016-10-19 11:38] LABS: ABSOLUTE BASOPHILS # (AUTO) 0.1 10^3/uL (0.0-0.2); ABSOLUTE EOSINOPHILS # (AUTO) 0.1 10^3/uL (0.0-0.6); ABSOLUTE LYMPHOCYTES (AUTO) 1.2 10^3/uL (0.5-4.7); ABSOLUTE MONOCYTES (AUTO) 0.5 10^3/uL (0.1-1.4); ABSOLUTE NEUT (AUTO) 3.5 10^3/uL (1.7-8.2); EOSINOPHILS % (AUTO) 1.6 % (0-6); HEMATOCRIT 40.1 % (36.0-47.0); HEMOGLOBIN 13.4 g/dL (12.0-15.5); HGB HCT DIFFERENCE 0.1; LYMPHOCYTES % (AUTO) 22.3 % (13-45); MEAN CORPUSCULAR HEMOGLOBIN 28.7 pg (27.0-33.4); MEAN CORPUSCULAR HGB CONC 33.5 g/dL (32.0-36.0); MEAN CORPUSCULAR VOLUME 86 fl (80-97); MONOCYTES % (AUTO) 10.1 % (3-13); RED BLOOD COUNT 4.68 10^6/uL (3.72-5.28); RED CELL DISTRIBUTION WIDTH 13.4 % (11.5-14.0); WHITE BLOOD COUNT 5.4 10^3/uL (4.0-10.5)
[2016-10-19 13:01] LABS: ALANINE AMINOTRANSFERASE 33 U/L (9-52); ALBUMIN 3.7 g/dL (3.5-5.0); ALKALINE PHOSPHATASE 99 U/L (38-126); ANION GAP 12 (5-19); ASPARTATE AMINO TRANSFERASE 28 U/L (14-36); BILIRUBIN,DIRECT 0.4 mg/dL (0.0-0.4); BILIRUBIN,TOTAL 0.5 mg/dL (0.2-1.3); BLOOD UREA NITROGEN 9 mg/dL (7-20); CALCIUM 9.4 mg/dL (8.4-10.2); CARBON DIOXIDE 22 mmol/L (22-30); CHLORIDE 112 mmol/L (98-107); CREATININE RESULT 0.65 mg/dL (0.52-1.25); GLUCOSE 97 mg/dL (75-110); LIPASE 165.3 U/L (23-300); POTASSIUM 4.4 mmol/L (3.6-5.0); SODIUM 145.7 mmol/L (137-145); TOTAL PROTEIN 6.6 g/dL (6.3-8.2)
[2016-10-19] MEDS ORDERED: ONDANSETRON HCL INJ/PF 4 MG/2 ML SDV IV ONE (13:41)
[2016-10-19] MEDS ORDERED: DIPHENHYDRAMINE HCL 50 MG/ML VIAL IV ONE (14:48)
[2016-10-19] MEDS ORDERED: METOCLOPRAMIDE HCL INJ/PF 10 MG/2 ML SDV IV ONE (14:48)
[2016-10-19 16:31] VITALS: BP 134/61
== END 2016-10-19 16:28 | disposition home or self-care (01) ==
LOC: ER 10:13
DX: K50.90 Crohn's disease, unspecified, without complications (principal); Z90.49 Acquired absence of other specified parts of digestive tract; R19.7 Diarrhea, unspecified; R11.2 Nausea with vomiting, unspecified; R10.9 Unspecified abdominal pain; R68.83 Chills (without fever); Z88.0 Allergy status to penicillin; Z88.1 Allergy status to other antibiotic agents; Z88.5 Allergy status to narcotic agent; Z91.048 Other nonmedicinal substance allergy status; Z88.8 Allergy status to other drugs, medicaments and biological substances; J45.909 Unspecified asthma, uncomplicated
CPT/HCPCS: 99284; 96361; 96374; 96375; 36415; 83690; 85025; 80053; 83605; J1200; A9270 ×2; J2765; J2405; J7030; J3490

== ENCOUNTER 2017-02-16 13:02 | Emergency (ER) | payer MEDICARE, MEDICAID ==
[2017-02-16] MEDS ORDERED: ONDANSETRON 4 MG TAB.RAPDIS PO ONE ×2 (13:35→15:09)
--- NOTE | 2017-02-16 13:38 | ER Document Report ---
ED Medical Screen (RME) - General Chief Complaint: Abdominal Pain Stated Complaint: NAUSEA Time Seen by Provider: 02/16/17 13:34 Mode of Arrival: Ambulatory Information source: Patient Notes: 56-year-old female presents to ED for severe mid abdominal pain. She states she woke up in pain and sick to the stomach feel like she needs to vomit. She states her pain is sharp gnawing a level 4 out of 5. She states she has no appetite and when she tried to drink some coffee this morning she felt like she needed to throw up. She states she is nauseated right now and the only thing she has had to eat or drink is water sips. She states she has had hot and cold flashes all day. Bowel sounds are present but diminished in all 4 quadrants. Patient has a history of Crohn's kidney cyst and arthritis. She sees Dr. Carlos in [place] for the Crohn's but states that her primary care doctor will not let her go to [place] right now so she has not been to see them in a while. She sees Dr. Crockett for nephrology for the cyst on her kidneys he is located in [facility] and she sees Dr. Wilhelm from [place] for her arthritis. She has a history of an appendectomy hysterectomy 2-1/2 feet of her small intestines and a half of her colon removed and 3 ventral hernia repairs. I have greeted and performed a rapid initial assessment of this patient. A comprehensive ED assessment and evaluation of the patient, analysis of test results and completion of medical decision making process will be conducted by an additional ED providers. TRAVEL OUTSIDE OF THE [place] IN LAST 30 DAYS: No - HPI Onset: This morning Onset/Duration: Sudden Quality of pain: Sharp - gnawing Severity: Moderate Pain Level: 4 Associated Symptoms: Nausea - Related Data Allergies/Adverse Reactions: adhesive tape [Adhesive Tape] Allergy (Verified 02/16/17 13:13) cephalexin monohydrate [From Keflex] Allergy (Verified 02/16/17 13:13) codeine [Codeine] Allergy (Verified 02/16/17 13:13) erythromycin base [Erythromycin Base] Allergy (Verified 02/16/17 13:13) metronidazole [From Flagyl] Allergy (Verified 02/16/17 13:13) Metronidazole HCl [From Flagyl] Allergy (Verified 02/16/17 13:13) oxaprozin [From Daypro] Allergy (Verified 02/16/17 13:13) Penicillins Allergy (Verified 02/16/17 13:13) Past Medical History - Social History Chew tobacco use (# tins/day): No Frequency of alcohol use: None Drug Abuse: None - Past Medical History Cardiac Medical History: Denies: Hx Atrial Fibrillation, Hx Coronary Artery Disease, Hx Heart Attack, Hx Hypercholesterolemia, Hx Hypertension, Hx Peripheral Vascular Disease, Hx Pulmonary Embolism Pulmonary Medical History: Reports: Hx Asthma Endocrine Medical History: Denies: Hx Diabetes Mellitus Type 1, Hx Diabetes Mellitus Type 2, Hx Graves' Disease Renal/ Medical History: Denies: Hx Peritoneal Dialysis GI Medical History: Reports: Hx Crohn's Disease Musculoskeltal Medical History: Reports Hx Arthritis, Reports Hx Fibromyalgia Psychiatric Medical History: Denies: Hx Depression Infectious Medical History: Denies: Hx MRSA Past Surgical History: Reports: Hx Abdominal Surgery, Hx Appendectomy, Hx Bowel Surgery - small bowel, hernia x 2, Hx Cholecystectomy, Hx Hysterectomy - Immunizations Immunizations up to date: Yes Hx Diphtheria, Pertussis, Tetanus Vaccination: Yes Physical Exam - Vital signs Vitals: Temp Pulse Resp BP Pulse Ox 98.8 F 76 18 136/68 H 96 02/16/17 13:12 02/16/17 13:12 02/16/17 13:12 02/16/17 13:12 02/16/17 13:12 Course - Vital Signs Vital signs: Temp Pulse Resp BP Pulse Ox 98.8 F 76 18 136/68 H 96 02/16/17 13:12 02/16/17 13:12 02/16/17 13:12 02/16/17 13:12 02/16/17 13:12
[2017-02-16 14:12] LABS: ABSOLUTE BASOPHILS # (AUTO) 0.1 10^3/uL (0.0-0.2); ABSOLUTE EOSINOPHILS # (AUTO) 0.1 10^3/uL (0.0-0.6); ABSOLUTE MONOCYTES (AUTO) 0.6 10^3/uL (0.1-1.4); ABSOLUTE NEUT (AUTO) 3.5 10^3/uL (1.7-8.2); BASOPHILS % (AUTO) 0.9 % (0-2); EOSINOPHILS % (AUTO) 1.4 % (0-6); HEMATOCRIT 41.5 % (36.0-47.0); HGB HCT DIFFERENCE 0.5; LYMPHOCYTES % (AUTO) 32.5 % (13-45); MEAN CORPUSCULAR HEMOGLOBIN 30.3 pg (27.0-33.4); MEAN CORPUSCULAR HGB CONC 33.6 g/dL (32.0-36.0); MEAN CORPUSCULAR VOLUME 90 fl (80-97); MONOCYTES % (AUTO) 9.4 % (3-13); RED BLOOD COUNT 4.61 10^6/uL (3.72-5.28); RED CELL DISTRIBUTION WIDTH 15.6 % (11.5-14.0); SEGMENTED NEUTROPHILS % (AUTO) 55.8 % (42-78); WHITE BLOOD COUNT 6.3 10^3/uL (4.0-10.5)
[2017-02-16 14:13] LABS: APPEARANCE,URINE SLIGHTLY-CLOUDY; BILIRUBIN,URINE NEGATIVE (NEGATIVE); GLUCOSE, URINE NEGATIVE (NEGATIVE); KETONES,URINE NEGATIVE (NEGATIVE); LEUKOCYTE ESTERASE,URINE LARGE (NEGATIVE); NITRITE,URINE NEGATIVE (NEGATIVE); PROTEIN,URINE NEGATIVE (NEGATIVE); URINE SPECIFIC GRAVITY 1.027; UROBILINOGEN,URINE NEGATIVE mg/dL (<2.0)
[2017-02-16 14:31] LABS: ALANINE AMINOTRANSFERASE 33 U/L (9-52); ALBUMIN 4.2 g/dL (3.5-5.0); ALKALINE PHOSPHATASE 90 U/L (38-126); ANION GAP 11 (5-19); ASPARTATE AMINO TRANSFERASE 23 U/L (14-36); BILIRUBIN,DIRECT 0.4 mg/dL (0.0-0.4); BILIRUBIN,TOTAL 0.5 mg/dL (0.2-1.3); BLOOD UREA NITROGEN 15 mg/dL (7-20); CALCIUM 9.8 mg/dL (8.4-10.2); CARBON DIOXIDE 27 mmol/L (22-30); CHLORIDE 106 mmol/L (98-107); GLUCOSE 93 mg/dL (75-110); LIPASE 323.3 U/L (23-300); POTASSIUM 4.1 mmol/L (3.6-5.0); SODIUM 144.1 mmol/L (137-145); TOTAL PROTEIN 6.9 g/dL (6.3-8.2)
[2017-02-16] MEDS ORDERED: FAMOTIDINE 20 MG TABLET PO ONE (15:09)
[2017-02-16] MEDS ORDERED: DICYCLOMINE HCL 20 MG TABLET PO ONE (15:09)
--- NOTE | 2017-02-16 16:33 | RADIOLOGY REPORT (SQ) ---
EXAM DESCRIPTION: ACUTE ABDOMEN SERIES COMPLETED DATE/TIME: 02/16/2017 4:24 pm REASON FOR STUDY: abd pain COMPARISON: CT abdomen pelvis 12/12/2014, 08/12/2016 Abdominal films 08/11/2016 Chest films 08/25/2016, 10/03/2016 NUMBER OF VIEWS: Three views. TECHNIQUE: Frontal chest, supine abdomen and upright abdomen radiographic images acquired. LIMITATIONS: None. FINDINGS: CHEST: Lungs clear of infiltrates. No pleural effusions or pneumothorax. Cardiac silhoue tte size, demario, bony structures unremarkable. FREE AIR: None. No abnormal gas collections. BOWEL GAS PATTERN: Nonobstructive pattern. No dilated loops or air fluid levels. CALCIFICATIONS: No suspicious calcifications. HARDWARE: There are multiple surgical clips in the right upper quadrant post cholecystectomy and CT p ost right hemicolectomy. SOFT TISSUES: No gross mass or suggestion of organomegaly. BONES: No acute fracture. No worrisome bone lesions. OTHER: No other significant finding. IMPRESSION: NO RADIOGRAPHIC EVIDENCE FOR ACUTE ABDOMINAL DISEASE. TECHNICAL DOCUMENTATION: JOB ID: [id number] All Rights Reserved
--- NOTE | 2017-02-16 17:10 | ER Document Report ---
ED General - General Chief Complaint: Abdominal Pain Stated Complaint: NAUSEA Time Seen by Provider: 02/16/17 13:34 Mode of Arrival: Ambulatory TRAVEL OUTSIDE OF THE [place] IN LAST 30 DAYS: No - HPI Patient complains to provider of: Abdominal pain nausea vomiting Notes: Patient coming in for abdominal pain epigastric in nature with nausea vomiting. Patient states history of Crohn's disease or chronic diarrhea. Patient states multiple surgeries. Patient currently is not on any medications for her Crohn's disease patient states has not had a colonoscopy or EGD performed in greater than 5 years. Patient currently does not have local GI coverage follows up with local [facility]. Denies any recent travel denies any changes to be her chronic medications. Denies any fevers chills. Patient is resting comfortably upon my evaluation. - Related Data Allergies/Adverse Reactions: adhesive tape [Adhesive Tape] Allergy (Verified 02/16/17 13:13) cephalexin monohydrate [From Keflex] Allergy (Verified 02/16/17 13:13) codeine [Codeine] Allergy (Verified 02/16/17 13:13) erythromycin base [Erythromycin Base] Allergy (Verified 02/16/17 13:13) metronidazole [From Flagyl] Allergy (Verified 02/16/17 13:13) Metronidazole HCl [From Flagyl] Allergy (Verified 02/16/17 13:13) oxaprozin [From Daypro] Allergy (Verified 02/16/17 13:13) Penicillins Allergy (Verified 02/16/17 13:13) Past Medical History - General Information source: Patient - Social History Smoking Status: Never Smoker Chew tobacco use (# tins/day): No Frequency of alcohol use: None Drug Abuse: None Family History: CAD, DM, Hyperlipidemia Patient has suicidal ideation: No Patient has homicidal ideation: No - Past Medical History Cardiac Medical History: Denies: Hx Atrial Fibrillation, Hx Coronary Artery Disease, Hx Heart Attack, Hx Hypercholesterolemia, Hx Hypertension, Hx Peripheral Vascular Disease, Hx Pulmonary Embolism Pulmonary Medical History: Reports: Hx Asthma Endocrine Medical History: Denies: Hx Diabetes Mellitus Type 1, Hx Diabetes Mellitus Type 2, Hx Graves' Disease Renal/ Medical History: Denies: Hx Peritoneal Dialysis GI Medical History: Reports: Hx Crohn's Disease Musculoskeltal Medical History: Reports Hx Arthritis, Reports Hx Fibromyalgia Psychiatric Medical History: Denies: Hx Depression Infectious Medical History: Denies: Hx MRSA Past Surgical History: Reports: Hx Abdominal Surgery, Hx Appendectomy, Hx Bowel Surgery - small bowel, hernia x 2, Hx Cholecystectomy, Hx Hysterectomy - Immunizations Immunizations up to date: Yes Hx Diphtheria, Pertussis, Tetanus Vaccination: Yes Review of Systems - Review of Systems Constitutional: No symptoms reported EENT: No symptoms reported Cardiovascular: No symptoms reported Respiratory: No symptoms reported Gastrointestinal: Abdominal pain, Nausea, Vomiting Genitourinary: No symptoms reported Female Genitourinary: No symptoms reported Musculoskeletal: No symptoms reported Skin: No symptoms reported Hematologic/Lymphatic: No symptoms reported Neurological/Psychological: No symptoms reported -: Yes All other systems reviewed and negative Physical Exam - Vital signs Vitals: Temp Pulse Resp BP Pulse Ox 98.8 F 76 18 136/68 H 96 02/16/17 13:12 02/16/17 13:12 02/16/17 13:12 02/16/17 13:12 02/16/17 13:12 Interpretation: Normal - General General appearance: Appears well, Alert - HEENT Head: Normocephalic, Atraumatic Eyes: Normal Pupils: PERRL - Respiratory Respiratory status: No respiratory distress Chest status: Nontender Breath sounds: Normal Chest palpation: Normal - Cardiovascular Rhythm: Regular Heart sounds: Normal auscultation Murmur: No - Abdominal Inspection: Normal Distension: No distension Bowel sounds: Normal Tenderness: Nontender Organomegaly: No organomegaly - Back Back: Normal, Nontender - Extremities General upper extremity: Normal inspection, Nontender, Normal color, Normal ROM , Normal temperature General lower extremity: Normal inspection, Nontender, Normal color, Normal ROM , Normal temperature, Normal weight bearing. No: Christina's sign - Neurological Neuro grossly intact: Yes Cognition: Normal Orientation: AAOx4 [place] Coma Scale Eye Opening: Spontaneous Patrica Coma Scale Verbal: Oriented [place] Coma Scale Motor: Obeys Commands [place] Coma Scale Total: 15 Speech: Normal Motor strength normal: LUE, RUE, LLE, RLE Sensory: Normal - Psychological Associated symptoms: Normal affect, Normal mood - Skin Skin Temperature: Warm Skin Moisture: Dry Skin Color: Normal Course - Re-evaluation Re-evalutation: 02/16/17 22:14 Laboratory studies shows slight elevation in lipase more likely underlying gastritis this patient is complaining of epigastric pain. Nausea controlled with medications here. Workup does not show any signs of significant pathology will discharge home follow-up with primary care physician. The patient presents with abdominal pain without signs of peritonitis or other life- threatening or serious etiology. The patient appears stable for discharge and has been instructed to return immediately if the symptoms worsen in any way, or in 8-12hr if not improved for re-evaluation. The patient has been instructed to return if the symptoms worsen or change in any way. - Vital Signs Vital signs: Temp Pulse Resp BP Pulse Ox 98.2 F 63 18 134/58 H 100 02/16/17 17:20 02/16/17 17:20 02/16/17 17:20 02/16/17 17:20 02/16/17 17:20 - Laboratory Result Diagrams: 02/16/17 13:40 02/16/17 13:40 Laboratory results interpreted by me: 02/16/17 02/16/17 02/16/17 13:40 13:40 13:40 RDW 15.6 H Lipase 323.3 H Urine Blood SMALL H Ur Leukocyte Esterase LARGE H Discharge - Discharge Clinical Impression: Abdominal pain Qualifiers: Abdominal location: unspecified location Qualified Code(s): R10.9 - Unspecified abdominal pain Condition: Good Disposition: HOME, SELF-CARE Instructions: Abdominal Pain ([facility]), Antispasmodics ([facility]) Additional Instructions: Your laboratory studies today show no signs of any significant pathology. I highly recommend taking the Zofran or Reglan for nausea control may take the Bentyl for abdominal pain. If you are not taking any antacid at this time I recommend taking omeprazole. Follow-up with your primary care physician or doctors provided. Return to ER symptoms worsen. Prescriptions: Ondansetron [Zofran Odt 4 mg Tablet] 4 mg PO Q4HP PRN #30 tab.rapdis PRN Reason: Promethazine HCl [Phenergan 25 mg Tablet] 25 mg PO Q4HP PRN #30 tablet PRN Reason: Dicyclomine HCl [Bentyl 20 mg Tablet] 20 mg PO QID #40 tablet Omeprazole 20 mg PO DAILY #20 capsule.dr Forms: Return to Work
[2017-02-16 17:44] VITALS: BP 134/58
== END 2017-02-16 17:20 | disposition home or self-care (01) ==
LOC: ER 13:02
DX: R10.13 Epigastric pain (principal); R11.2 Nausea with vomiting, unspecified; R19.7 Diarrhea, unspecified; Z90.49 Acquired absence of other specified parts of digestive tract; Z90.710 Acquired absence of both cervix and uterus
CPT/HCPCS: 99284; 36415; 83690; 85025; 80053; 81001; 74022; A9270 ×3; J3490; S0119

== ENCOUNTER 2017-02-28 11:00 | Emergency (ER) | payer MEDICARE, MEDICAID ==
--- NOTE | 2017-02-28 11:22 | ER Document Report ---
ED Medical Screen (RME) - General Chief Complaint: Low Back Pain Stated Complaint: LOWER EXTREMITY PAIN Time Seen by Provider: 02/28/17 11:12 Mode of Arrival: Ambulatory Information source: Patient Notes: 56-year-old female presented to ED for complaint of pain from her waist down to her feet. She states she was so much pain that she had a hard time getting out of bed. She states she feels very bloated and feels like each leg weighs 100 pounds. She has a history of Crohn's and was seen recently for similar some symptoms. She says this is not her low back pain with sciatica that she is here for this is for the bloating and a feeling heavy with pain. I have greeted and performed a rapid initial assessment of this patient. A comprehensive ED assessment and evaluation of the patient, analysis of test results and completion of medical decision making process will be conducted by an additional ED providers. TRAVEL OUTSIDE OF THE [place] IN LAST 30 DAYS: No - Related Data Allergies/Adverse Reactions: adhesive tape [Adhesive Tape] Allergy (Verified 02/16/17 13:13) cephalexin monohydrate [From Keflex] Allergy (Verified 02/16/17 13:13) codeine [Codeine] Allergy (Verified 02/16/17 13:13) erythromycin base [Erythromycin Base] Allergy (Verified 02/16/17 13:13) metronidazole [From Flagyl] Allergy (Verified 02/16/17 13:13) Metronidazole HCl [From Flagyl] Allergy (Verified 02/16/17 13:13) oxaprozin [From Daypro] Allergy (Verified 02/16/17 13:13) Penicillins Allergy (Verified 02/16/17 13:13) Past Medical History - Past Medical History Cardiac Medical History: Denies: Hx Atrial Fibrillation, Hx Coronary Artery Disease, Hx Heart Attack, Hx Hypercholesterolemia, Hx Hypertension, Hx Peripheral Vascular Disease, Hx Pulmonary Embolism Pulmonary Medical History: Reports: Hx Asthma Endocrine Medical History: Denies: Hx Diabetes Mellitus Type 1, Hx Diabetes Mellitus Type 2, Hx Graves' Disease Renal/ Medical History: Denies: Hx Peritoneal Dialysis GI Medical History: Reports: Hx Crohn's Disease Musculoskeltal Medical History: Reports Hx Arthritis, Reports Hx Fibromyalgia Psychiatric Medical History: Denies: Hx Depression Infectious Medical History: Denies: Hx MRSA Past Surgical History: Reports: Hx Abdominal Surgery, Hx Appendectomy, Hx Bowel Surgery - small bowel, hernia x 2, Hx Cholecystectomy, Hx Hysterectomy - Immunizations Immunizations up to date: Yes Hx Diphtheria, Pertussis, Tetanus Vaccination: Yes Physical Exam - Vital signs Vitals: Temp Pulse Resp BP Pulse Ox 99.2 F 67 16 138/71 H 97 02/28/17 11:06 02/28/17 11:06 02/28/17 11:06 02/28/17 11:06 02/28/17 11:06 Course - Vital Signs Vital signs: Temp Pulse Resp BP Pulse Ox 99.2 F 67 16 138/71 H 97 02/28/17 11:06 02/28/17 11:06 02/28/17 11:06 02/28/17 11:06 02/28/17 11:06
--- NOTE | 2017-02-28 12:06 | ER Document Report ---
ED General - General Chief Complaint: Low Back Pain Stated Complaint: LOWER EXTREMITY PAIN Time Seen by Provider: 02/28/17 11:12 Mode of Arrival: Ambulatory Information source: Patient Notes: 56-year-old female presented to ED for complaint of pain from her waist down to her feet. She states she was so much pain that she had a hard time getting out of bed. She states she feels very bloated and feels like each leg weighs 100 pounds. She has a history of Crohn's and was seen recently for similar some symptoms. She says this is not her low back pain with sciatica that she is here for this is for the bloating and a feeling heavy with pain. TRAVEL OUTSIDE OF THE [place] IN LAST 30 DAYS: No - HPI Onset: Just prior to arrival - Patient notes yesterday she was fine Onset/Duration: Sudden Quality of pain: Achy Severity: Mild Pain Level: 1 Associated symptoms: Other Exacerbated by: Denies Relieved by: Denies Similar symptoms previously: Yes Recently seen / treated by doctor: Yes - Related Data Allergies/Adverse Reactions: adhesive tape [Adhesive Tape] Allergy (Verified 02/16/17 13:13) cephalexin monohydrate [From Keflex] Allergy (Verified 02/16/17 13:13) codeine [Codeine] Allergy (Verified 02/16/17 13:13) erythromycin base [Erythromycin Base] Allergy (Verified 02/16/17 13:13) metronidazole [From Flagyl] Allergy (Verified 02/16/17 13:13) Metronidazole HCl [From Flagyl] Allergy (Verified 02/16/17 13:13) oxaprozin [From Daypro] Allergy (Verified 02/16/17 13:13) Penicillins Allergy (Verified 02/16/17 13:13) Past Medical History - General Information source: Patient - Social History Smoking Status: Unknown if Ever Smoked Cigarette use (# per day): No Chew tobacco use (# tins/day): No Smoking Education Provided: No Frequency of alcohol use: None Drug Abuse: None Family History: CAD, DM, Hyperlipidemia - Past Medical History Cardiac Medical History: Denies: Hx Atrial Fibrillation, Hx Coronary Artery Disease, Hx Heart Attack, Hx Hypercholesterolemia, Hx Hypertension, Hx Peripheral Vascular Disease, Hx Pulmonary Embolism Pulmonary Medical History: Reports: Hx Asthma Endocrine Medical History: Denies: Hx Diabetes Mellitus Type 1, Hx Diabetes Mellitus Type 2, Hx Graves' Disease Renal/ Medical History: Denies: Hx Peritoneal Dialysis GI Medical History: Reports: Hx Crohn's Disease Musculoskeltal Medical History: Reports Hx Arthritis, Reports Hx Fibromyalgia Psychiatric Medical History: Denies: Hx Depression Infectious Medical History: Denies: Hx MRSA Past Surgical History: Reports: Hx Abdominal Surgery, Hx Appendectomy, Hx Bowel Surgery - small bowel, hernia x 2, Hx Cholecystectomy, Hx Hysterectomy - Immunizations Immunizations up to date: Yes Hx Diphtheria, Pertussis, Tetanus Vaccination: Yes Review of Systems - Review of Systems Notes: REVIEW OF SYSTEMS: CONSTITUTIONAL : Denies fever, chills, or sweats. Denies recent illness. EENT: Denies eye, ear, throat, or mouth pain or symptoms. Denies nasal or sinus congestion or discharge. Denies throat, tongue, or mouth swelling or difficulty swallowing. CARDIOVASCULAR: Denies chest pain. Denies palpitations or racing or irregular heart beat. Denies ankle edema. RESPIRATORY: Denies cough, cold, or chest congestion. Denies shortness of breath, difficulty breathing, or wheezing. GASTROINTESTINAL: Admits to abdominal distention GENITOURINARY: Denies difficulty urinating, painful urination, burning, frequency, blood in urine, or discharge. FEMALE GENITOURINARY: Denies vaginal bleeding, heavy or abnormal periods, irregular periods. Denies vaginal discharge or odor. MUSCULOSKELETAL: Admits to back pain leg heaviness sensation SKIN: Denies rash, lesions or sores. HEMATOLOGIC : Denies easy bruising or bleeding. LYMPHATIC: Denies swollen, enlarged glands. NEUROLOGICAL: Denies confusion or altered mental status. Denies passing out or loss of consciousness. Denies dizziness or lightheadedness. Denies headache. Denies weakness or paralysis or loss of use of either side. Denies problems with gait or speech. Denies sensory loss, numbness, or tingling. Denies seizures. PSYCHIATRIC: Denies anxiety or stress. Denies depression, suicidal ideation, or homicidal ideation. ALL OTHER SYSTEMS REVIEWED AND NEGATIVE. PHYSICAL EXAMINATION: GENERAL: Well-appearing, well-nourished and in no acute distress. HEAD: Atraumatic, normocephalic. EYES: Pupils equal round and reactive to light, extraocular movements intact, conjunctiva are normal. ENT: Nares patent, oropharynx clear without exudates. Moist mucous membranes. NECK: Normal range of motion, supple without lymphadenopathy LUNGS: Breath sounds clear to auscultation bilaterally and equal. No wheezes rales or rhonchi. HEART: Regular rate and rhythm without murmurs ABDOMEN: Soft, nontender, nondistended abdomen. No guarding, no rebound. No masses appreciated. Female : deferred Musculoskeletal: Normal range of motion, no pitting or edema. No cyanosis. Tenderness on palpation of the lumbar region L2-L3 patient has full range of motion of her lower extremities NEUROLOGICAL: Cranial nerves grossly intact. Normal speech, normal gait. Normal sensory, motor exams PSYCH: Normal mood, normal affect. SKIN: Warm, Dry, normal turgor, no rashes or lesions noted. Dictation was performed using [employer] voice recognition software Physical Exam - Vital signs Vitals: Temp Pulse Resp BP Pulse Ox 99.2 F 67 16 138/71 H 97 02/28/17 11:06 02/28/17 11:06 02/28/17 11:06 02/28/17 11:06 02/28/17 11:06 Course - Re-evaluation Re-evalutation: 02/28/17 12:06 Physical examination noted that the patient does not fact have some tenderness otherwise well-appearing patient states her abdomen is bloated however it is nontender on palpation she is in no distress CT as well as an MRI had been ordered given patient's symptoms 02/28/17 14:57 CT MRI noted no significant abnormalities, there is some foramen narrowing otherwise no signs of cauda equina syndrome. Patient looks well will be discharged home to follow-up with her own primary care physician After performing a Medical Screening Examination, I estimate there is LOW risk for EXPANDING OR RUPTURED ABDOMINAL AORTIC ANEURYSM, CAUDA EQUINA SYNDROME, EPIDURAL MASS LESION, or HERNIATED DISK CAUSING SEVERE SPINAL STENOSIS, thus I consider the discharge disposition reasonable. I have reevaluated this patient multiple times and no significant life threatening changes are noted. The patient and I have discussed the diagnosis and risks, and we agree with discharging home and close follow-up. We also discussed returning to the Emergency Department immediately if new or worsening symptoms occur with the understanding that symptoms and presentations can change. We have discussed the symptoms which are most concerning (e.g., saddle anesthesia, urinary or bowel incontinence or retention, changing or worsening pain) that necessitate immediate return. - Vital Signs Vital signs: Temp Pulse Resp BP Pulse Ox 99.2 F 67 16 138/71 H 97 02/28/17 11:06 02/28/17 11:06 02/28/17 11:06 02/28/17 11:06 02/28/17 11:06 - Laboratory Result Diagrams: 02/28/17 12:03 02/28/17 12:03 Laboratory results interpreted by me: 02/28/17 02/28/17 02/28/17 12:03 12:03 13:25 RDW 14.5 H Chloride 109 H Glucose 113 H Total Protein 6.1 L Urine Blood SMALL H Ur Leukocyte Esterase TRACE H - Diagnostic Test Radiology reviewed: Image reviewed, Reports reviewed Discharge - Discharge Clinical Impression: Abdominal bloating Back pain Qualifiers: Back pain location: low back pain Chronicity: acute Back pain laterality: unspecified Sciatica presence: without sciatica Qualified Code(s): M54.5 - Low back pain Condition: Stable Disposition: HOME, SELF-CARE Instructions: Abdominal Pain ([facility]) Additional Instructions: Follow up with your physician tomorrow for further care or return to the ED IMMEDIATELY if symptoms worsen or new concerns occur. If you cannot afford to follow up with your primary care physician a list of low cost clinics have been provided at the end of your discharge papers as well. Prescriptions: Ketorolac Tromethamine [Toradol 10 mg Tablet] 10 mg PO Q6HP PRN #20 tablet PRN Reason:
[2017-02-28 12:22] LABS: ABSOLUTE EOSINOPHILS # (AUTO) 0.1 10^3/uL (0.0-0.6); ABSOLUTE LYMPHOCYTES (AUTO) 1.8 10^3/uL (0.5-4.7); ABSOLUTE MONOCYTES (AUTO) 0.6 10^3/uL (0.1-1.4); ABSOLUTE NEUT (AUTO) 3.1 10^3/uL (1.7-8.2); BASOPHILS % (AUTO) 0.8 % (0-2); EOSINOPHILS % (AUTO) 2.3 % (0-6); HEMATOCRIT 37.5 % (36.0-47.0); HEMOGLOBIN 12.9 g/dL (12.0-15.5); HGB HCT DIFFERENCE 1.2; LYMPHOCYTES % (AUTO) 32.1 % (13-45); MEAN CORPUSCULAR HEMOGLOBIN 30.5 pg (27.0-33.4); MEAN CORPUSCULAR HGB CONC 34.4 g/dL (32.0-36.0); MEAN CORPUSCULAR VOLUME 89 fl (80-97); MONOCYTES % (AUTO) 10.7 % (3-13); RED BLOOD COUNT 4.22 10^6/uL (3.72-5.28); RED CELL DISTRIBUTION WIDTH 14.5 % (11.5-14.0); SEGMENTED NEUTROPHILS % (AUTO) 54.1 % (42-78); WHITE BLOOD COUNT 5.6 10^3/uL (4.0-10.5)
[2017-02-28 12:41] LABS: ALANINE AMINOTRANSFERASE 22 U/L (9-52); ALBUMIN 3.6 g/dL (3.5-5.0); ALKALINE PHOSPHATASE 92 U/L (38-126); ANION GAP 9 (5-19); ASPARTATE AMINO TRANSFERASE 17 U/L (14-36); BILIRUBIN,DIRECT 0.4 mg/dL (0.0-0.4); BILIRUBIN,TOTAL 0.4 mg/dL (0.2-1.3); BLOOD UREA NITROGEN 14 mg/dL (7-20); CALCIUM 9.1 mg/dL (8.4-10.2); CARBON DIOXIDE 25 mmol/L (22-30); CHLORIDE 109 mmol/L (98-107); CREATININE RESULT 0.73 mg/dL (0.52-1.25); GLUCOSE 113 mg/dL (75-110); POTASSIUM 3.8 mmol/L (3.6-5.0); SODIUM 143.3 mmol/L (137-145); TOTAL PROTEIN 6.1 g/dL (6.3-8.2)
[2017-02-28] MEDS ORDERED: LORAZEPAM INJ 2 MG/1 ML VIAL IV ONE (12:58)
[2017-02-28 13:44] LABS: APPEARANCE,URINE CLEAR; BILIRUBIN,URINE NEGATIVE (NEGATIVE); GLUCOSE, URINE NEGATIVE (NEGATIVE); KETONES,URINE NEGATIVE (NEGATIVE); LEUKOCYTE ESTERASE,URINE TRACE (NEGATIVE); NITRITE,URINE NEGATIVE (NEGATIVE); PROTEIN,URINE NEGATIVE (NEGATIVE); URINE SPECIFIC GRAVITY 1.025; UROBILINOGEN,URINE NEGATIVE mg/dL (<2.0)
--- NOTE | 2017-02-28 13:47 | RADIOLOGY REPORT (SQ) ---
EXAM DESCRIPTION: CT ABD/PELVIS WITH IV ONLY COMPLETED DATE/TIME: 02/28/2017 1:19 pm REASON FOR STUDY: abd distension, COMPARISON: 08/12/2016 and 11/05/2012. TECHNIQUE: CT scan of the abdomen and pelvis performed using helical scanning technique with dynamic intravenous contrast injection. No oral contrast. Images reviewed with lung, soft tissue, and bone windows. Reconstructed coronal and sagittal MPR images reviewed. Delayed images for evaluation of the urinary system also acquired. All images stored on PACS. All CT scanners at this facility use dose modulation, iterative reconstruction, and/or weight based d osing when appropriate to reduce radiation dose to as low as reasonably achievable (ALARA). [facility]: Dose Right [facility]: CareDose [facility]: Dose Right [facility]: Teradose 4D [facility]: StoreDot CONTRAST TYPE AND DOSE: contrast/concentration: Isovue 370.00 mg/ml; Total Contrast Delivered: 100.0 ml; Total Saline Delivered: 72.1 ml RENAL FUNCTION: BUN 14 creatinine 0.73. RADIATION DOSE: Up-to-date CT equipment and radiation dose reduction techniques were employed. CTDIv ol: 21.1 - 21.1 mGy. DLP: 2181 mGy-cm.. LIMITATIONS: None. FINDINGS: LOWER CHEST: No significant findings. No nodules or infiltrates. LIVER: Normal size. No masses. No dilated ducts. SPLEEN: Normal size. No focal lesions. PANCREAS: No masses. No significant calcifications. No adjacent inflammation or peripancreatic fluid collections. Pancreatic duct not dilated. GALLBLADDER: Surgically absent. ADRENAL GLANDS: No significant masses or asymmetry. RIGHT KIDNEY AND URETER: Subcentimeter low-attenuation cortical lesion, unchanged since the most rece nt CT. No significant calcifications. No hydronephrosis or hydroureter. LEFT KIDNEY AND URETER: No solid masses. No significant calcifications. No hydronephrosis or hydr oureter. AORTA AND VESSELS: No aneurysm. No dissection. Renal arteries, SMA, celiac without stenosis. RETROPERITONEUM: No retroperitoneal adenopathy, hemorrhage or masses. BOWEL AND PERITONEAL CAVITY: No masses or inflammatory changes. No free fluid or peritoneal masses. APPENDIX: Surgically absent. PELVIS: No mass. No free fluid. Normal bladder. ABDOMINAL WALL: No masses. No hernias. BONES: No significant or acute findings. OTHER: No other significant finding. IMPRESSION: SMALL SUBCENTIMETER CORTICAL LESION IN THE RIGHT KIDNEY UNCHANGED SINCE AUGUST 2016. THI S IS TOO SMALL TO CHARACTERIZE BUT IS PROBABLY A PREVIOUSLY SEEN CORTICAL CYST (11/05/2012) WHICH HAS DECREASED IN SIZE. NO OTHER SIGNIFICANT OR ACUTE FINDING IN THE ABDOMEN OR PELVIS ON CT SCAN WITH IV CONTRAST. TECHNICAL DOCUMENTATION: JOB ID: [id number] Quality ID # [id number]: Final reports with documentation of one or more dose reduction techniques (e.g., Au tomated exposure control, adjustment of the mA and/or kV according to patient size, use of iterative reconstruction technique) 2010 [employer]- All Rights Reserved
--- NOTE | 2017-02-28 14:18 | RADIOLOGY REPORT (SQ) ---
EXAM DESCRIPTION: MRI LUMBAR SPINE WITHOUT COMPLETED DATE/TIME: 02/28/2017 2:07 pm REASON FOR STUDY: weakness of lower extremities COMPARISON: None. TECHNIQUE: Sagittal and Axial imaging includes T1, T2, STIR and gradient echo sequences. Coronal T2/ HASTE imaging. LIMITATIONS: None. FINDINGS: VISUALIZED UPPER ABDOMEN: Limited evaluation. No acute or suspicious findings suggested. SEGMENTATION: No transitional anatomy. The lowest well-developed disc space is labeled L5-S1. ALIGNMENT: Grade 1 anterolisthesis of L5 on S1. VERTEBRAE: Intact. BONE MARROW: Normal. No marrow replacement or reactive changes. DISC SIGNAL: Normal. No significant abnormal signal or loss of height. POSTERIOR ELEMENTS: Generally intact. Bilateral pars defects at L5. HARDWARE: None in the spine. CORD AND CONUS: Normal in size and signal intensity. Conus at the appropriate level. SOFT TISSUES: No aortic aneurysm seen. No bulky retroperitoneal adenopathy or mass. No paraspinal mas s or fluid. L1-L2: No significant spinal stenosis or exit foraminal stenosis. L2-L3: No significant spinal stenosis or exit foraminal stenosis. L3-L4: No significant spinal stenosis or exit foraminal stenosis. L4-L5: No significant disc bulge. Moderate facet arthropathy. No significant spinal stenosis or exi t foraminal stenosis. L5-S1: No significant disc bulge. Moderate facet arthropathy. No significant spinal stenosis. Bila teral exit foraminal stenosis secondary to anterolisthesis. No significant spinal stenosis or exit f oraminal stenosis. LOWER THORACIC: Incompletely imaged. No stenosis seen. SACRUM: Visualized upper sacrum intact. OTHER: No other significant findings. IMPRESSION: 1. BILATERAL PARS DEFECTS AT L5 WITH GRADE 1 ANTEROLISTHESIS OF L5 ON S1 RESULTING IN BILATERAL EXIT FORAMINAL STENOSIS. 2. OTHERWISE FAIRLY UNREMARKABLE MRI OF THE LUMBAR SPINE. NO SIGNIFICANT DISC DISEASE. NO SPINAL ST ENOSIS OR IMPINGEMENT. TECHNICAL DOCUMENTATION: JOB ID: [id number]- All Rights Reserved
[2017-02-28 15:14] VITALS: BP 132/47
== END 2017-02-28 15:13 | disposition home or self-care (01) ==
LOC: ER 11:00
DX: R14.0 Abdominal distension (gaseous) (principal); M54.5 Low back pain; K50.90 Crohn's disease, unspecified, without complications
CPT/HCPCS: 99284; 96374; 36415; 85025; 80053; 81001; 83880; 72148; 74177; J2060

== ENCOUNTER 2017-04-26 13:24 | Emergency (ER) | payer MEDICAID, MEDICARE ==
[2017-04-26 13:30] VITALS: BP 150/74
[2017-04-26 14:24] LABS: APPEARANCE,URINE SLIGHTLY-CLOUDY; BILIRUBIN,URINE NEGATIVE (NEGATIVE); GLUCOSE, URINE NEGATIVE (NEGATIVE); KETONES,URINE NEGATIVE (NEGATIVE); LEUKOCYTE ESTERASE,URINE TRACE (NEGATIVE); NITRITE,URINE NEGATIVE (NEGATIVE); PROTEIN,URINE NEGATIVE (NEGATIVE); URINE SPECIFIC GRAVITY 1.029; UROBILINOGEN,URINE NEGATIVE mg/dL (<2.0)
--- NOTE | 2017-04-26 14:57 | ER Document Report ---
ED Medical Screen (RME) - General Chief Complaint: Back Pain Stated Complaint: BACK PAIN Time Seen by Provider: 04/26/17 14:53 Notes: Patient presents with persistent right low back pain. She states she has had it for over 1 week. Patient states that her workup at that time was unremarkable. She states the pain has worsened. No problems with urination or bowel movements. No fevers. No nausea vomiting or diarrhea. TRAVEL OUTSIDE OF THE [place] IN LAST 30 DAYS: No - Related Data Allergies/Adverse Reactions: adhesive tape [Adhesive Tape] Allergy (Verified 04/26/17 13:27) cephalexin monohydrate [From Keflex] Allergy (Verified 04/26/17 13:27) codeine [Codeine] Allergy (Verified 04/26/17 13:27) erythromycin base [Erythromycin Base] Allergy (Verified 04/26/17 13:27) metronidazole [From Flagyl] Allergy (Verified 04/26/17 13:27) Metronidazole HCl [From Flagyl] Allergy (Verified 04/26/17 13:27) oxaprozin [From Daypro] Allergy (Verified 04/26/17 13:27) Penicillins Allergy (Verified 04/26/17 13:27) Home Medications: Current Home Medications No Home Medications 04/26/17 [History] Past Medical History - Past Medical History Cardiac Medical History: Denies: Hx Atrial Fibrillation, Hx Coronary Artery Disease, Hx Heart Attack, Hx Hypercholesterolemia, Hx Hypertension, Hx Peripheral Vascular Disease, Hx Pulmonary Embolism Pulmonary Medical History: Reports: Hx Asthma Endocrine Medical History: Denies: Hx Diabetes Mellitus Type 1, Hx Diabetes Mellitus Type 2, Hx Graves' Disease Renal/ Medical History: Denies: Hx Peritoneal Dialysis GI Medical History: Reports: Hx Crohn's Disease Musculoskeltal Medical History: Reports Hx Arthritis, Reports Hx Fibromyalgia Psychiatric Medical History: Denies: Hx Depression Infectious Medical History: Denies: Hx MRSA Past Surgical History: Reports: Hx Abdominal Surgery, Hx Appendectomy, Hx Bowel Surgery - small bowel, hernia x 2, Hx Cholecystectomy, Hx Hysterectomy - Immunizations Immunizations up to date: Yes Hx Diphtheria, Pertussis, Tetanus Vaccination: Yes Physical Exam - Vital signs Vitals: Temp Pulse Resp BP Pulse Ox 98.6 F 68 16 150/74 H 95 04/26/17 13:29 04/26/17 13:29 04/26/17 13:29 04/26/17 13:29 04/26/17 13:29 Course - Vital Signs Vital signs: Temp Pulse Resp BP Pulse Ox 98.6 F 68 16 150/74 H 95 04/26/17 13:29 04/26/17 13:29 04/26/17 13:29 04/26/17 13:29 04/26/17 13:29 - Laboratory Laboratory results interpreted by me: 04/26/17 14:00 Urine Blood SMALL H Ur Leukocyte Esterase TRACE H
[2017-04-26 15:21] LABS: ABSOLUTE EOSINOPHILS # (AUTO) 0.1 10^3/uL (0.0-0.6); ABSOLUTE MONOCYTES (AUTO) 0.5 10^3/uL (0.1-1.4); ABSOLUTE NEUT (AUTO) 3.7 10^3/uL (1.7-8.2); BASOPHILS % (AUTO) 0.7 % (0-2); EOSINOPHILS % (AUTO) 1.9 % (0-6); HEMATOCRIT 42.4 % (36.0-47.0); HEMOGLOBIN 14.4 g/dL (12.0-15.5); HGB HCT DIFFERENCE 0.8; LYMPHOCYTES % (AUTO) 31.3 % (13-45); MEAN CORPUSCULAR HEMOGLOBIN 29.9 pg (27.0-33.4); MEAN CORPUSCULAR HGB CONC 33.9 g/dL (32.0-36.0); MEAN CORPUSCULAR VOLUME 88 fl (80-97); MONOCYTES % (AUTO) 8.4 % (3-13); RED CELL DISTRIBUTION WIDTH 13.2 % (11.5-14.0); SEGMENTED NEUTROPHILS % (AUTO) 57.7 % (42-78); WHITE BLOOD COUNT 6.4 10^3/uL (4.0-10.5)
[2017-04-26 15:45] LABS: ALANINE AMINOTRANSFERASE 34 U/L (9-52); ALBUMIN 4.7 g/dL (3.5-5.0); ALKALINE PHOSPHATASE 107 U/L (38-126); ANION GAP 12 (5-19); ASPARTATE AMINO TRANSFERASE 25 U/L (14-36); BILIRUBIN,DIRECT 0.3 mg/dL (0.0-0.4); BILIRUBIN,TOTAL 0.4 mg/dL (0.2-1.3); BLOOD UREA NITROGEN 16 mg/dL (7-20); CALCIUM 9.7 mg/dL (8.4-10.2); CARBON DIOXIDE 29 mmol/L (22-30); CHLORIDE 106 mmol/L (98-107); CREATININE RESULT 0.94 mg/dL (0.52-1.25); GLUCOSE 93 mg/dL (75-110); SODIUM 147.1 mmol/L (137-145); TOTAL PROTEIN 7.4 g/dL (6.3-8.2)
[2017-04-26] MEDS ORDERED: LIDOCAINE 5% (700 MG) TRANSDERMAL ADH..PATCH TP ONE (15:59)
[2017-04-26] MEDS ORDERED: DEXAMETHASONE SOD PHOS INJ 10 MG/1 ML VIAL IM ONE (15:59)
[2017-04-26] MEDS ORDERED: KETOROLAC TROMETHAMINE INJ/PF 30 MG/1 ML SDV IM ONE (15:59)
--- NOTE | 2017-04-26 16:09 | ER Document Report ---
HPI - HPI Pain Level: 4 Notes: Patient is a 56-year-old female with a history of chronic back pain, Crohn's, fibromyalgia who presents the ED complaining of continued right lower back pain 1/2 weeks. Patient states that she was evaluated about a week ago, and had a negative workup at that time. Patient states that she did have a recent MRI and CT scan which did not show any significant findings. Patient states that the pain has been relatively constant and does not radiate. The pain is described as sharp and is worsened with truncal movements. Patient has been using [id number] meds with minimal relief. She is still eating and drinking without any difficulties. She denies any smoking or IV drug use. Denies any procedures or injections in her back. Patient states that she has been seen in the past by orthopedics and physical therapy. Denies any headache , fever, neck pain, URI, sore throat, chest pain, palpitations, syncope, cough, shortness of breath, wheeze, dyspnea, acute abd pain (has chronic with crohns), nausea/vomiting, urinary retention, dysuria, hematuria, loss of control of bowel or bladder, numbness/tingling, saddle anesthesia, muscle paralysis/ weakness, or rash. - ROS Notes: REVIEW OF SYSTEMS: CONSTITUTIONAL : Denies fever, chills, or sweats. Denies recent illness. EENT: Denies eye, ear, throat, or mouth pain or symptoms. Denies nasal or sinus congestion or discharge. Denies throat, tongue, or mouth swelling or difficulty swallowing. CARDIOVASCULAR: Denies chest pain. Denies palpitations or racing or irregular heart beat. Denies ankle edema. RESPIRATORY: Denies cough, cold, or chest congestion. Denies shortness of breath, difficulty breathing, or wheezing. GASTROINTESTINAL: Denies abdominal pain or distention. Denies nausea, vomiting. GENITOURINARY: Denies difficulty urinating, painful urination, burning, frequency, blood in urine, or discharge. MUSCULOSKELETAL: see hpi SKIN: Denies rash, lesions or sores. NEUROLOGICAL: Denies confusion or altered mental status. Denies passing out or loss of consciousness. Denies dizziness or lightheadedness. Denies headache. Denies weakness or paralysis or loss of use of either side. Denies problems with gait or speech. Denies sensory loss, numbness, or tingling. ALL OTHER SYSTEMS REVIEWED AND NEGATIVE. Dictation was performed using [employer] voice recognition software - REPRODUCTIVE LMP: hyst Reproductive: DENIES: : - DERM Skin Color: Normal Past Medical History - Social History Smoking Status: Never Smoker Family History: CAD, DM, Hyperlipidemia Patient has suicidal ideation: No Patient has homicidal ideation: No - Past Medical History Cardiac Medical History: Denies: Hx Atrial Fibrillation, Hx Coronary Artery Disease, Hx Heart Attack, Hx Hypercholesterolemia, Hx Hypertension, Hx Peripheral Vascular Disease, Hx Pulmonary Embolism Pulmonary Medical History: Reports: Hx Asthma Endocrine Medical History: Denies: Hx Diabetes Mellitus Type 1, Hx Diabetes Mellitus Type 2, Hx Graves' Disease Renal/ Medical History: Denies: Hx Peritoneal Dialysis GI Medical History: Reports: Hx Crohn's Disease Musculoskeltal Medical History: Reports Hx Arthritis, Reports Hx Fibromyalgia Psychiatric Medical History: Denies: Hx Depression Infectious Medical History: Denies: Hx MRSA Past Surgical History: Reports: Hx Abdominal Surgery, Hx Appendectomy, Hx Bowel Surgery - small bowel, hernia x 2, Hx Cholecystectomy, Hx Hysterectomy - Immunizations Immunizations up to date: Yes Hx Diphtheria, Pertussis, Tetanus Vaccination: Yes Vertical Provider Document - CONSTITUTIONAL Agree With Documented VS: Yes Notes: PHYSICAL EXAMINATION: GENERAL: Well-appearing, well-nourished and in no acute distress. A&Ox4. obese. LUNGS: Breath sounds clear to auscultation bilaterally and equal. No wheezes rales or rhonchi. HEART: Regular rate and rhythm without murmurs, rubs, gallops. Musculoskeletal: LE's b/l: FROM to passive/active. Strength 5+/5. No deficits noted. No bony tenderness of extremities. Back: FROM to passive/active. Strength 5+/5. No vertebral point tenderness, stepoffs, or deformities. No other bony tenderness or ecchymosis. SLR negative b/l. + tenderness to the Rt L-paraspinal mm near L2-3. + mild muscle spasm. Extremities: No cyanosis, clubbing, or edema b/l. Peripheral pulses 2+. Capillary refill less than 2 seconds. NEUROLOGICAL: Normal speech, normal gait. Normal sensory, motor exams. Reflexes 2+ b/l. PSYCH: Normal mood, normal affect. SKIN: Warm, Dry, normal turgor, no rashes or lesions noted. - INFECTION CONTROL TRAVEL OUTSIDE OF THE [place] IN LAST 30 DAYS: No - RESPIRATORY O2 Sat by Pulse Oximetry: 95 Course - Re-evaluation Re-evalutation: 04/26/17 16:07 Patient is an afebrile, well-hydrated, 56-year-old female who presents the ED with a low back strain based on H&P. Vitals are stable. PE is otherwise unremarkable for any focal neurological deficits. No imaging warranted at this time based on H&P. Decadron 10 mg, Toradol 30 mg, and a Lidoderm patch was given today. Low suspicion for any meningitis, fracture, expanding/ruptured AAA , cauda equina syndrome, epidural mass lesion/abscess, herniated disc causing severe spinal stenosis, or other systemic infection at this time. Patient is aware that her condition can change from initial presentation and that she needs monitor symptoms closely for any acute changes. Recent MRI was unremarkable for any neurosurgical emergencies at this time. I will send her home with a prescription for naproxen, Lidoderm patch, and baclofen. I will give her information for orthopedics and chiropractics as well. Patient is to consider consult with physical therapy. Recheck with your PCM in 3-5 days. Return to the ED with any worsening/concerning symptoms otherwise as reviewed in discharge. Patient is in agreement. - Vital Signs Vital signs: Temp Pulse Resp BP Pulse Ox 98.6 F 68 16 150/74 H 95 04/26/17 13:29 04/26/17 13:29 04/26/17 13:29 04/26/17 13:29 04/26/17 13:29 - Laboratory Result Diagrams: 04/26/17 15:07 04/26/17 15:07 Laboratory results interpreted by me: 04/26/17 04/26/17 14:00 15:07 Sodium 147.1 H Urine Blood SMALL H Ur Leukocyte Esterase TRACE H Discharge - Discharge Clinical Impression: Low back strain Qualifiers: Encounter type: initial encounter Qualified Code(s): S39.012A - Strain of muscle, fascia and tendon of lower back, initial encounter Condition: Stable Disposition: HOME, SELF-CARE Instructions: Ice Packs ([facility]), Warm Packs ([facility]), Low Back Pain ([facility]), Muscle Strain ([facility]), Stretching Exercises for the Back ([facility]) Additional Instructions: Decadron (steroid injection) is a 3 day medication in one injection. Rest, ice Tylenol/ibuprofen as needed Light stretches daily Strength exercises as able Any and all weight loss will help Moist heat and massage may help F/u with your PCP in 3-5 days for a recheck Consider consult(s) with Orthopedics/physical therapy/chiropractics/ accupuncture for ongoing/worsening symptoms Return to the ED with any worsening symptoms and/or development of fever, headache, chest pain, palpitations, syncope, shortness of breath, trouble breathing, abdominal pain, n/v/d, blood in stool/urine, loss of control of bowel /bladder, urinary retention, muscle weakness/paralysis, saddle anesthesia, numbness/tingling, or other worsening symptoms that are concerning to you. Prescriptions: Baclofen [Baclofen 10 mg Tablet] 5 mg PO BID PRN #10 tablet PRN Reason: Lidocaine [Lidoderm 5% (700 mg) Transdermal Patch] 1 patch TP DAILY #30 adh..patch Naproxen 500 mg PO BID PRN #30 tablet PRN Reason: Forms: Elevated Blood Pressure, Return to Work Referrals: [facility] [Provider Group] - Follow up as needed
== END 2017-04-26 16:43 | disposition home or self-care (01) ==
LOC: ER 13:24
DX: S39.012A Strain of muscle, fascia and tendon of lower back, initial encounter (principal); X58.XXXA Exposure to other specified factors, initial encounter; G89.29 Other chronic pain; M54.9 Dorsalgia, unspecified; Z90.49 Acquired absence of other specified parts of digestive tract; Z90.710 Acquired absence of both cervix and uterus
CPT/HCPCS: 99283; 96372; 36415; 85025; 80053; 81001; J1885; J1100

== ENCOUNTER 2017-06-08 10:30 | Emergency (ER) | payer MEDICARE ==
--- NOTE | 2017-06-08 10:54 | EKG REPORT ---
SEVERITY:- NORMAL ECG - SINUS RHYTHM : Confirmed by: Tisha Hill MD 08-Jun-2017 10:53:51
--- NOTE | 2017-06-08 11:25 | ER Document Report ---
ED Medical Screen (RME) - General Chief Complaint: Chest Congestion Stated Complaint: CONGESTION Time Seen by Provider: 06/08/17 11:17 Mode of Arrival: Ambulatory Information source: Patient Notes: 56 yr old female with fibromyalgia presents with complaints cough congestion, left arm and chest pain . While in triage she admits to taking around 6000 tylenol daily. I have greeted and performed a rapid initial assessment of this patient. A comprehensive ED assessment and evaluation of the patient, analysis of test results and completion of the medical decision making process will be conducted by additional ED providers. PHYSICAL EXAMINATION: GENERAL: Well-appearing, well-nourished and in no acute distress. HEAD: Atraumatic, normocephalic. EYES: Pupils equal round extraocular movements intact, conjunctiva are normal. ENT: Nares patent NECK: Normal range of motion LUNGS: No respiratory distress Musculoskeletal: Normal range of motion NEUROLOGICAL: Normal speech, normal gait. PSYCH: Normal mood, normal affect. SKIN: Warm, Dry, normal turgor, no rashes or lesions noted. TRAVEL OUTSIDE OF THE [place] IN LAST 30 DAYS: No - Related Data Allergies/Adverse Reactions: adhesive tape [Adhesive Tape] Allergy (Verified 06/08/17 10:32) cephalexin monohydrate [From Keflex] Allergy (Verified 06/08/17 10:32) codeine [Codeine] Allergy (Verified 06/08/17 10:32) erythromycin base [Erythromycin Base] Allergy (Verified 06/08/17 10:32) metronidazole [From Flagyl] Allergy (Verified 06/08/17 10:32) Metronidazole HCl [From Flagyl] Allergy (Verified 06/08/17 10:32) oxaprozin [From Daypro] Allergy (Verified 06/08/17 10:32) Penicillins Allergy (Verified 06/08/17 10:32) Home Medications: Current Home Medications Acetaminophen [Tylenol Arthritis 650 mg Tablet] 1,950 mg PO TID 06/08/17 [ History] Past Medical History - Social History Frequency of alcohol use: None Drug Abuse: None - Past Medical History Cardiac Medical History: Denies: Hx Atrial Fibrillation, Hx Coronary Artery Disease, Hx Heart Attack, Hx Hypercholesterolemia, Hx Hypertension, Hx Peripheral Vascular Disease, Hx Pulmonary Embolism Pulmonary Medical History: Reports: Hx Asthma Endocrine Medical History: Denies: Hx Diabetes Mellitus Type 1, Hx Diabetes Mellitus Type 2, Hx Graves' Disease Renal/ Medical History: Denies: Hx Peritoneal Dialysis GI Medical History: Reports: Hx Crohn's Disease Musculoskeltal Medical History: Reports Hx Arthritis, Reports Hx Fibromyalgia Psychiatric Medical History: Denies: Hx Depression Infectious Medical History: Denies: Hx MRSA Past Surgical History: Reports: Hx Abdominal Surgery, Hx Appendectomy, Hx Bowel Surgery - small bowel, hernia x 2, Hx Cholecystectomy, Hx Hysterectomy - Immunizations Immunizations up to date: Yes Hx Diphtheria, Pertussis, Tetanus Vaccination: Yes Physical Exam - Vital signs Vitals: Temp Pulse Resp BP Pulse Ox 99.3 F 79 20 142/69 H 94 06/08/17 10:51 06/08/17 10:51 06/08/17 10:51 06/08/17 10:51 06/08/17 10:51 Course - Vital Signs Vital signs: Temp Pulse Resp BP Pulse Ox 99.3 F 79 20 142/69 H 94 06/08/17 10:51 06/08/17 10:51 06/08/17 10:51 06/08/17 10:51 06/08/17 10:51
[2017-06-08 12:21] LABS: ABSOLUTE BASOPHILS # (AUTO) 0.1 10^3/uL (0.0-0.2); ABSOLUTE EOSINOPHILS # (AUTO) 0.2 10^3/uL (0.0-0.6); ABSOLUTE LYMPHOCYTES (AUTO) 1.8 10^3/uL (0.5-4.7); ABSOLUTE MONOCYTES (AUTO) 1.1 10^3/uL (0.1-1.4); ABSOLUTE NEUT (AUTO) 6.1 10^3/uL (1.7-8.2); BASOPHILS % (AUTO) 0.6 % (0-2); EOSINOPHILS % (AUTO) 2.5 % (0-6); HEMATOCRIT 42.2 % (36.0-47.0); HEMOGLOBIN 14.1 g/dL (12.0-15.5); HGB HCT DIFFERENCE 0.1; LYMPHOCYTES % (AUTO) 19.2 % (13-45); MEAN CORPUSCULAR HEMOGLOBIN 29.4 pg (27.0-33.4); MEAN CORPUSCULAR HGB CONC 33.5 g/dL (32.0-36.0); MEAN CORPUSCULAR VOLUME 88 fl (80-97); MONOCYTES % (AUTO) 11.4 % (3-13); RED BLOOD COUNT 4.81 10^6/uL (3.72-5.28); RED CELL DISTRIBUTION WIDTH 13.6 % (11.5-14.0); SEGMENTED NEUTROPHILS % (AUTO) 66.3 % (42-78); WHITE BLOOD COUNT 9.2 10^3/uL (4.0-10.5)
[2017-06-08 12:41] LABS: ALANINE AMINOTRANSFERASE 27 U/L (9-52); ALBUMIN 4.3 g/dL (3.5-5.0); ALKALINE PHOSPHATASE 100 U/L (38-126); ANION GAP 10 (5-19); ASPARTATE AMINO TRANSFERASE 18 U/L (14-36); BILIRUBIN,DIRECT 0.3 mg/dL (0.0-0.4); BILIRUBIN,TOTAL 0.3 mg/dL (0.2-1.3); BLOOD UREA NITROGEN 13 mg/dL (7-20); CALCIUM 9.7 mg/dL (8.4-10.2); CARBON DIOXIDE 27 mmol/L (22-30); CHLORIDE 107 mmol/L (98-107); CREATINE KINASE 79 U/L (30-135); GLUCOSE 84 mg/dL (75-110); POTASSIUM 4.1 mmol/L (3.6-5.0); SODIUM 143.6 mmol/L (137-145); TOTAL PROTEIN 7.1 g/dL (6.3-8.2)
[2017-06-08 12:52] LABS: CREATINE KINASE MB 0.55 ng/mL (<4.55)
[2017-06-08 12:57] LABS: TROPONIN I < 0.012 ng/mL
--- NOTE | 2017-06-08 13:09 | RADIOLOGY REPORT (SQ) ---
EXAM DESCRIPTION: CHEST PA/LAT COMPLETED DATE/TIME: 06/08/2017 12:59 pm REASON FOR STUDY: cough congestion COMPARISON: 10/03/2016 EXAM PARAMETERS: NUMBER OF VIEWS: two views TECHNIQUE: Digital Frontal and Lateral radiographic views of the chest acquired. RADIATION DOSE: NA LIMITATIONS: none FINDINGS: LUNGS AND PLEURA: No opacities, masses or pneumothorax. No pleural effusion. MEDIASTINUM AND HILAR STRUCTURES: No masses or contour abnormalities. HEART AND VASCULAR STRUCTURES: Heart normal size. No evidence for failure. BONES: No acute findings. Moderate thoracic spondylosis. Mild scoliosis convex to the right. HARDWARE: None in the chest. OTHER: No other significant finding. IMPRESSION: NO SIGNIFICANT RADIOGRAPHIC FINDING IN THE CHEST. TECHNICAL DOCUMENTATION: JOB ID: [id number] [employer]- All Rights Reserved
--- NOTE | 2017-06-08 14:01 | ER Document Report ---
ED Respiratory Problem - General Chief Complaint: Chest Congestion Stated Complaint: CONGESTION Time Seen by Provider: 06/08/17 11:17 Mode of Arrival: Ambulatory Information source: Patient TRAVEL OUTSIDE OF THE [place] IN LAST 30 DAYS: No - HPI Patient complains to provider of: Cough Onset: Yesterday Duration: Continuous, Worse/persistent - THIS A.M. Quality of pain: Sharp Severity: Mild Context: Hx asthma. denies: Hx CHF, Hx COPD, Recent cardiac event, Smoker Short of Breath: Mild Chest pain/discomfort: Left - UPPER/LATERAL Cough: Productive Sputum amount: Small Sputum color: Yellow Sputum consistency: Mucoid Associated symptoms: Fever, Wheezing Similar symptoms previously: Yes - NOT RECENT Recently seen / treated by doctor: No - Related Data Allergies/Adverse Reactions: adhesive tape [Adhesive Tape] Allergy (Verified 06/08/17 10:32) cephalexin monohydrate [From Keflex] Allergy (Verified 06/08/17 10:32) codeine [Codeine] Allergy (Verified 06/08/17 10:32) erythromycin base [Erythromycin Base] Allergy (Verified 06/08/17 10:32) metronidazole [From Flagyl] Allergy (Verified 06/08/17 10:32) Metronidazole HCl [From Flagyl] Allergy (Verified 06/08/17 10:32) oxaprozin [From Daypro] Allergy (Verified 06/08/17 10:32) Penicillins Allergy (Verified 06/08/17 10:32) Home Medications: Current Home Medications Acetaminophen [Tylenol Arthritis 650 mg Tablet] 1,950 mg PO TID 06/08/17 [ History] Past Medical History - General Information source: Patient - Social History Smoking Status: Never Smoker Frequency of alcohol use: None Drug Abuse: None Lives with: Family Family History: CAD, DM, Hyperlipidemia Patient has suicidal ideation: No Patient has homicidal ideation: No - Past Medical History Cardiac Medical History: Denies: Hx Atrial Fibrillation, Hx Coronary Artery Disease, Hx Heart Attack, Hx Hypercholesterolemia, Hx Hypertension, Hx Peripheral Vascular Disease, Hx Pulmonary Embolism Pulmonary Medical History: Reports: Hx Asthma Endocrine Medical History: Denies: Hx Diabetes Mellitus Type 1, Hx Diabetes Mellitus Type 2, Hx Graves' Disease Renal/ Medical History: Denies: Hx Peritoneal Dialysis GI Medical History: Reports: Hx Crohn's Disease Musculoskeltal Medical History: Reports Hx Arthritis, Reports Hx Fibromyalgia Psychiatric Medical History: Denies: Hx Depression Infectious Medical History: Denies: Hx MRSA Past Surgical History: Reports: Hx Abdominal Surgery, Hx Appendectomy, Hx Bowel Surgery - small bowel, hernia x 2, Hx Cholecystectomy, Hx Hysterectomy - Immunizations Immunizations up to date: Yes Hx Diphtheria, Pertussis, Tetanus Vaccination: Yes Review of Systems - Review of Systems Constitutional: Fever EENT: No symptoms reported Cardiovascular: Chest pain - L. UPPER LATERAL, ONLY W/ COUGH OR DEEP INSPIRATION , ALSO INCREASES W/ MOVEMENT OF ARM Respiratory: See HPI Gastrointestinal: No symptoms reported Genitourinary: No symptoms reported Female Genitourinary: No symptoms reported Musculoskeletal: See HPI Skin: No symptoms reported Neurological/Psychological: No symptoms reported Physical Exam - Vital signs Vitals: Temp Pulse Resp BP Pulse Ox 99.3 F 79 20 142/69 H 94 06/08/17 10:51 06/08/17 10:51 06/08/17 10:51 06/08/17 10:51 06/08/17 10:51 Interpretation: Hypertensive. No: Tachycardic, Hypoxic, Tachypneic, Febrile - General General appearance: Appears well, Alert In distress: None - HEENT Head: Normocephalic Eyes: Normal Conjunctiva: Normal Ears: Normal Nasal: Normal Mouth/Lips: Normal Mucous membranes: Normal Pharynx: Normal Neck: Normal - Respiratory Respiratory status: No respiratory distress - SPEAKS NORMALLY, IN COMPLETE SENTENCES Breath sounds: Normal - Cardiovascular Rhythm: Regular Heart sounds: Normal auscultation Murmur: No - Abdominal Inspection: Obese Bowel sounds: Normal - Back Back: Normal - Extremities General upper extremity: Normal inspection General lower extremity: Normal inspection. No: Edema - Neurological Neuro grossly intact: Yes Cognition: Normal Orientation: AAOx4 - Psychological Associated symptoms: Normal affect, Normal mood - Skin Skin Temperature: Warm Skin Moisture: Dry Skin Color: Normal Skin Turgor: Elastic Course - Vital Signs Vital signs: Temp Pulse Resp BP Pulse Ox 99.3 F 79 18 114/88 H 94 06/08/17 10:51 06/08/17 10:51 06/08/17 14:00 06/08/17 13:01 06/08/17 10:51 - Laboratory Result Diagrams: 06/08/17 11:56 06/08/17 11:56 Laboratory results interpreted by me: 06/08/17 11:56 Est GFR (Non-Af Amer) 57 L Acetaminophen < 10 L Discharge - Discharge Clinical Impression: Bronchitis, acute Condition: Stable Disposition: HOME, SELF-CARE Instructions: Bronchitis With Bronchospasm (Wheezing) ([facility]), Inhaled Bronchodilators ([facility]), Corticosteroid Medication ([facility]), Levofloxacin Additional Instructions: REST, DRINK PLENTY OF FLUIDS. MEDS DIRECTED. AVOID SMOKE, DUST, AND FUMES. FOLLOW UP WITH YOUR PRIMARY CARE PROVIDER IF NOT IMPROVING IN 2-3 DAYS. Prescriptions: Albuterol Sulfate [Proair HFA] 8.5 gm IH Q4HP PRN #1 hfa.aer.[id number] PRN Reason: For Wheezing Levofloxacin 500 mg PO DAILY #10 tablet Prednisone [Deltasone 10 mg Tablet] 10 mg PO ASDIR PRN #21 tablet PRN Reason: Forms: Return to Work
[2017-06-08 14:43] VITALS: BP 158/96
== END 2017-06-08 14:44 | disposition home or self-care (01) ==
LOC: ER 10:30
DX: J20.9 Acute bronchitis, unspecified (principal); R09.89 Other specified symptoms and signs involving the circulatory and respiratory systems; R05 Cough; Z79.899 Other long term (current) drug therapy
CPT/HCPCS: 36415; 71020; 80053; 80307; 82550; 82553; 84484; 85025; 87070; 87205; 93005; 93010; 99284

== ENCOUNTER 2017-12-26 14:59 | Emergency (ER) | payer MEDICARE, MEDICAID ==
[2017-12-26] MEDS ORDERED: NORMAL SALINE 1000 ML 1,000 ML IV ONE (15:33)
[2017-12-26] MEDS ORDERED: METOCLOPRAMIDE HCL INJ/PF 10 MG/2 ML SDV IV ONE (15:33)
[2017-12-26] MEDS ORDERED: DIPHENHYDRAMINE HCL 50 MG/ML VIAL IV ONE (15:33)
--- NOTE | 2017-12-26 15:33 | ER Document Report ---
ED Medical Screen (RME) - General Chief Complaint: Headache Stated Complaint: HEADACHE, FEVER Time Seen by Provider: 12/26/17 15:30 Mode of Arrival: Ambulatory Information source: Patient Notes: 57-year-old female with Crohn's disease, fibromyalgia, arthritis, asthma presents with complaint of headache, fever and constipation. Patient states that headache started 4 days prior to arrival. It is diffusely located and described as a crushing pain that is not relieved with Tylenol. She denies any history of headaches. She states that just prior to arrival she had a temp of 103. She has not taken any medication for this and upon arrival here her temp is 98 9. When asked patient states she does have a history of meningitis approximately 10 years ago. She denies any sick contacts. Patient is also concerned that she has not had a bowel movement in 2 days and states this is abnormal for her. She denies any associated abdominal pain or nausea. I have greeted and performed a rapid initial assessment of this patient. A comprehensive ED assessment and evaluation of the patient including analysis of labs and imaging ( if obtained) and completion of medical decision making will be conducted by an additional ED provider. PHYSICAL EXAMINATION: GENERAL: Well-appearing, well-nourished and in no acute distress. HEAD: Atraumatic, normocephalic. EYES: Pupils equal round extraocular movements intact, conjunctiva are normal. ENT: Nares patent NECK: Normal range of motion LUNGS: No respiratory distress Musculoskeletal: Normal range of motion NEUROLOGICAL: Normal speech, normal gait. PSYCH: Normal mood, normal affect. SKIN: Warm, Dry, normal turgor, no rashes or lesions noted. TRAVEL OUTSIDE OF THE [place] IN LAST 30 DAYS: No - Related Data Allergies/Adverse Reactions: adhesive tape [Adhesive Tape] Allergy (Verified 12/26/17 15:31) cephalexin monohydrate [From Keflex] Allergy (Verified 12/26/17 15:31) codeine [Codeine] Allergy (Verified 12/26/17 15:31) erythromycin base [Erythromycin Base] Allergy (Verified 12/26/17 15:31) metronidazole [From Flagyl] Allergy (Verified 12/26/17 15:31) Metronidazole HCl [From Flagyl] Allergy (Verified 12/26/17 15:31) oxaprozin [From Daypro] Allergy (Verified 12/26/17 15:31) Penicillins Allergy (Verified 12/26/17 15:31) Past Medical History - Social History Chew tobacco use (# tins/day): No Frequency of alcohol use: None Drug Abuse: None - Past Medical History Cardiac Medical History: Denies: Hx Atrial Fibrillation, Hx Coronary Artery Disease, Hx Heart Attack, Hx Hypercholesterolemia, Hx Hypertension, Hx Peripheral Vascular Disease, Hx Pulmonary Embolism Pulmonary Medical History: Reports: Hx Asthma Endocrine Medical History: Denies: Hx Diabetes Mellitus Type 1, Hx Diabetes Mellitus Type 2, Hx Graves' Disease Renal/ Medical History: Denies: Hx Peritoneal Dialysis GI Medical History: Reports: Hx Crohn's Disease Musculoskeltal Medical History: Reports Hx Arthritis, Reports Hx Fibromyalgia Psychiatric Medical History: Denies: Hx Depression Infectious Medical History: Denies: Hx MRSA Past Surgical History: Reports: Hx Abdominal Surgery, Hx Appendectomy, Hx Bowel Surgery - small bowel, hernia x 2, Hx Cholecystectomy, Hx Hysterectomy - Immunizations Immunizations up to date: Yes Hx Diphtheria, Pertussis, Tetanus Vaccination: Yes Physical Exam - Vital signs Vitals: Temp Pulse Resp BP Pulse Ox 98.9 F 85 18 144/81 H 99 12/26/17 15:14 12/26/17 15:14 12/26/17 15:14 12/26/17 15:14 12/26/17 15:14 Course - Vital Signs Vital signs: Temp Pulse Resp BP Pulse Ox 98.9 F 85 18 144/81 H 99 12/26/17 15:14 12/26/17 15:14 12/26/17 15:14 12/26/17 15:14 12/26/17 15:14
--- NOTE | 2017-12-26 16:34 | RADIOLOGY REPORT (SQ) ---
EXAM DESCRIPTION: CT HEAD WITHOUT COMPLETED DATE/TIME: 12/26/2017 4:21 pm REASON FOR STUDY: headache/fever COMPARISON: 02/06/2009 TECHNIQUE: Axial images acquired through the brain without intravenous contrast. Images reviewed wi th bone, brain and subdural windows. Additional sagittal and coronal reconstructions were generated. Images stored on PACS. All CT scanners at this facility use dose modulation, iterative reconstruction, and/or weight based d osing when appropriate to reduce radiation dose to as low as reasonably achievable (ALARA). [facility]: Dose Right [facility]: CareDose [facility]: Dose Right [facility]: Teradose 4D [facility]: [facility] RADIATION DOSE: CT Rad equipment meets quality standard of care and radiation dose reduction techniq ues were employed. CTDIvol: 53.2 mGy. DLP: 964 mGy-cm. mGy. LIMITATIONS: None. FINDINGS: VENTRICLES: Normal size and contour. CEREBRUM: No masses. No hemorrhage. No midline shift. No evidence for acute infarction. Normal gra y/white matter differentiation. No areas of low density in the white matter. CEREBELLUM: No masses. No hemorrhage. No alteration of density. No evidence for acute infarction. EXTRAAXIAL SPACES: No fluid collections. No masses. ORBITS AND GLOBE: No intra- or extraconal masses. Normal contour of globe without masses. CALVARIUM: No fracture. PARANASAL SINUSES: No fluid or mucosal thickening. SOFT TISSUES: No mass or hematoma. OTHER: No other significant finding. IMPRESSION: NORMAL BRAIN CT WITHOUT CONTRAST. EVIDENCE OF ACUTE STROKE: NO. COMMENT: Quality ID # [id number]: Final reports with documentation of one or more dose reduction techniques (e.g., Automated exposure control, adjustment of the mA and/or kV according to patient size, use of iterative reconstruction technique) TECHNICAL DOCUMENTATION: JOB ID: [id number] [employer]- All Rights Reserved Reading location - IP/workstation name: [email or web address]
--- NOTE | 2017-12-26 16:42 | RADIOLOGY REPORT (SQ) ---
EXAM DESCRIPTION: ACUTE ABDOMEN SERIES COMPLETED DATE/TIME: 12/26/2017 4:28 pm REASON FOR STUDY: no bm in 3 days COMPARISON: 04/16/2017 NUMBER OF VIEWS: Five views. TECHNIQUE: Frontal chest, supine abdomen and upright/decubitus abdomen radiographic images acquired. LIMITATIONS: None. FINDINGS: CHEST: Lungs clear of infiltrates. FREE AIR: None. No abnormal gas collections. BOWEL GAS PATTERN: Nonobstructive pattern. No dilated loops or air fluid levels. CALCIFICATIONS: No suspicious calcifications. HARDWARE: Multiple surgical clips project over the right hemiabdomen. SOFT TISSUES: No gross mass or suggestion of organomegaly. BONES: No acute fracture. No worrisome bone lesions. OTHER: No other significant finding. IMPRESSION: NO RADIOGRAPHIC EVIDENCE FOR ACUTE ABDOMINAL DISEASE. TECHNICAL DOCUMENTATION: JOB ID: [id number] [employer]- All Rights Reserved Reading location - IP/workstation name: [email or web address]
--- NOTE | 2017-12-26 17:19 | ER Document Report ---
ED Headache - General Mode of Arrival: Ambulatory Information source: Patient TRAVEL OUTSIDE OF THE [place] IN LAST 30 DAYS: No <LIVE DELGADO - Last Filed: 12/26/17 17:24> <SUSANNE VEGA - Last Filed: 12/26/17 19:46> - General Chief Complaint: Headache Stated Complaint: HEADACHE, FEVER Time Seen by Provider: 12/26/17 15:30 Notes: Patient is a 57-year-old female with a history of Crohn's disease, fibromyalgia , arthritis, asthma, meningitis (10 years ago) presents to the emergency department complaining of multiple symptoms including a headache, photophobia, fever and chills onset 3 days ago. Patient describes her headache as diffuse and crushing further stating she does not have a history of headaches and Tylenol has not been providing any relief. She reports a fever of 103 at home. When arriving to the emergency department her temperature was 98.9. Patient denies any sick contacts, nausea or vomiting. Patient states she has not had a bowel movement in 2 days further stating this is abnormal for her. She states her last bowel movement was soft and normal. (LIVE DELGADO) The patient was seen at triage and orders were put in for medication, IV fluids , lab work. Patient is a very difficult IV stick in does not have any easy to obtain peripheral veins, despite using the vein finder. The medication and fluid orders will be stopped and she will be given the medications and a oral form and we will still try to get the blood work done. (SUSANNE VEGA) - Related Data Allergies/Adverse Reactions: adhesive tape [Adhesive Tape] Allergy (Verified 12/26/17 15:31) cephalexin monohydrate [From Keflex] Allergy (Verified 12/26/17 15:31) codeine [Codeine] Allergy (Verified 12/26/17 15:31) erythromycin base [Erythromycin Base] Allergy (Verified 12/26/17 15:31) metronidazole [From Flagyl] Allergy (Verified 12/26/17 15:31) Metronidazole HCl [From Flagyl] Allergy (Verified 12/26/17 15:31) oxaprozin [From Daypro] Allergy (Verified 12/26/17 15:31) Penicillins Allergy (Verified 12/26/17 15:31) Past Medical History - General Information source: Patient - Social History Smoking Status: Never Smoker Chew tobacco use (# tins/day): No Frequency of alcohol use: None Drug Abuse: None Family History: CAD, DM, Hyperlipidemia Patient has suicidal ideation: No Patient has homicidal ideation: No Pulmonary Medical History: Reports: Hx Asthma GI Medical History: Reports: Hx Crohn's Disease Musculoskeletal Medical History: Reports Hx Arthritis, Reports Hx Fibromyalgia Past Surgical History: Reports: Hx Abdominal Surgery, Hx Appendectomy, Hx Bowel Surgery - small bowel, hernia x 2, Hx Cholecystectomy, Hx Hysterectomy - Immunizations Immunizations up to date: Yes Hx Diphtheria, Pertussis, Tetanus Vaccination: Yes <LIVE DELGADO - Last Filed: 12/26/17 17:24> Review of Systems - Review of Systems Constitutional: See HPI, Chills, Fever EENT: No symptoms reported Cardiovascular: No symptoms reported Respiratory: No symptoms reported Gastrointestinal: No symptoms reported Genitourinary: No symptoms reported Female Genitourinary: No symptoms reported Musculoskeletal: No symptoms reported Skin: No symptoms reported Hematologic/Lymphatic: No symptoms reported Neurological/Psychological: See HPI, Headaches -: Yes All other systems reviewed and negative <LIVE DELGADO - Last Filed: 12/26/17 17:24> Physical Exam - General General appearance: Appears well, Alert In distress: None - HEENT Head: Normocephalic, Atraumatic, Tenderness - Tender to palpation to the parietal scalp. Neck: Normal, Other - No tenderness or difficulty with chin to chest. No posterior cervical or neck tenderness to palpation. No neck spasms. - Respiratory Respiratory status: No respiratory distress, Respiratory distress Chest status: Nontender Breath sounds: Normal Chest palpation: Normal - Cardiovascular Rhythm: Regular Heart sounds: Normal auscultation Murmur: No Friction rub: No Gallop: None auscultated - Abdominal Inspection: Morbidly Obese Distension: No distension Bowel sounds: Normal Tenderness: Nontender Organomegaly: No organomegaly - Back Back: Normal - Extremities General upper extremity: Normal ROM General lower extremity: Normal ROM - Neurological Neuro grossly intact: Yes Cognition: Normal Orientation: AAOx4 [place] Coma Scale Eye Opening: Spontaneous [place] Coma Scale Verbal: Oriented [place] Coma Scale Motor: Obeys Commands [place] Coma Scale Total: 15 Speech: Normal - Psychological Associated symptoms: Normal affect, Normal mood - Skin Skin Temperature: Warm Skin Moisture: Dry Skin Color: Normal <LIVE DELGADO - Last Filed: 12/26/17 17:24> - Vital signs Vitals: Temp Pulse Resp BP Pulse Ox 98.9 F 85 18 144/81 H 99 12/26/17 15:14 18 15:14 12/26/17 15:14 12/26/17 15:14 12/26/17 15:14 Course <ROBERT DELGADONAVIN - Last Filed: 12/26/17 17:24> - Laboratory Result Diagrams: 12/26/17 18:00 12/26/17 18:00 <SUSANNE VEGA - Last Filed: 12/26/17 19:46> - Re-evaluation Re-evalutation: 12/26/17 19:25 At this time the patient states that her headache is not improved at all. She was resting comfortably with her eyes closed when I went into the room. She reports the headache remains on the top of her head unchanged from previous exam, and she places fingertips of both hands onto her frontal temporal parietal scalp region.\\ Palpation of the scalp muscles remains as tender as it was on initial exam. She remains completely alert and oriented, neck is supple without any tenderness to palpate or pain on movement or change in the headache with neck flexion. I have low index of suspicion for an intracranial etiology for her reproducible scalp muscle tension type headache. She will be sent home with some pain medication to take for tonight, and to follow-up with her primary care provider tomorrow if not improved. She states she cannot take oral NSAIDs due to gastric irritation. 12/26/17 19:35 The patient's blood pressure was elevated when she checked in. It has been elevated like this many times over the past few years, and it is frequently found to be in the normal range also. She will be asked to monitor her blood pressure to be sure it returns back to normal. 12/26/17 19:45 I went back to review the discharge instruction with the patient and found her sound asleep and snoring. When I shook her foot repeatedly to wake her up, she initially woke up startled but quickly became oriented and was completely alert. Given that she was able to sleep so soundly with this headache, I decided to not provide the pain medication and recommend only Tylenol for this evening for her headache. (SUSANNE VEGA) - Vital Signs Vital signs: Temp Pulse Resp BP Pulse Ox 98.9 F 85 18 144/81 H 99 12/26/17 15:14 12/26/17 15:14 12/26/17 15:14 12/26/17 15:14 12/26/17 15:14 - Laboratory Laboratory results interpreted by me: 12/26/17 18:00 WBC 12.0 H Seg Neutrophils % 79.1 H Lymphocytes % 10.2 L Absolute Neutrophils 9.5 H Discharge <LIVE DELGADO - Last Filed: 12/26/17 17:24> <SUSANNE VEGA - Last Filed: 12/26/17 19:46> - Discharge Clinical Impression: Muscle tension headache, Elevated blood pressure reading Condition: Stable Disposition: HOME, SELF-CARE Additional Instructions: Tension Headache: Your problem has been diagnosed as muscle tension headache. This very common type of headache occurs because of tightness in the muscles of the head and/or neck. The headache may last hours or days. The treatment of uncomplicated tension headaches is rest and pain medication. Often, the newer antiinflammatory pain medications are prescribed, as these also decrease the irritability of the painful tissues. Muscle relaxers , cold packs, or warm packs are sometimes helpful. Anti-anxiety medication or narcotics are sometimes needed temporarily, but are best avoided in the long run. Your doctor has evaluated your headache problem, and finds no evidence of a serious health problem as a cause for the headache. If your headache becomes more severe, or if new symptoms develop (such as fever, stiff neck, vomiting, or decreasing alertness) you should be re-examined by the physician. High Blood Pressure: When your blood pressure was taken today it was elevated. This has been seen many times on previous visits over the past few years. It also has been found to be normal many times over the past few years. Pre-hypertension/Hypertension: The patient has been informed that they may have pre-hypertension or Hypertension based on a blood pressure reading in the emergency department. I recommend that the patient call the primary care provider listed on their discharge instructions or a physician of their choice this wee to arrange follow up for further evaluation of possible pre- hypertension or Hypertension. Sometimes, stress or illness causes a temporary elevation of your blood pressure. We suggest that you get your blood pressure measured three more times during the next few days to see if this is more than a temporary abnormality. If your blood pressure is greater than 150/90 on each occasion, you must have treatment. Some simple things you can do to help are: If you have blood pressure medicine but aren't using it regularly, start taking it again. Get some aerobic exercise for at least 20 minutes on a daily basis. (See your doctor before beginning a new exercise program.) Eat a low-fat diet. Lose excess weight. Avoid salty foods and avoid adding salt to any of the foods you eat. Avoid diet pills, decongestants, "energizing" herbs, and other medicines that elevate blood pressure. Take Tylenol this evening for your headache. Be sure to drink plenty of fluids this evening to stay well-hydrated. Rest in a cool, dark, quiet area. Follow-up with your doctor tomorrow if not improving. RETURN TO THE EMERGENCY ROOM IF ANY NEW OR WORSENING SYMPTOMS. Scribe Attestation: 12/26/17 17:39 I personally performed the services described in the documentation, reviewed and edited the documentation which was dictated to the scribe in my presence, and it accurately records my words and actions. (SUSANNE VEGA) Scribe Documentation - Scribe Written by Tamika:: Tamika Morales, 12/26/2017 17:22 acting as scribe for :: Odell <LIVE DELGADO - Last Filed: 12/26/17 17:24>
[2017-12-26] MEDS ORDERED: NAPROXEN 250 MG TABLET PO ONE (17:22)
[2017-12-26] MEDS ORDERED: PROCHLORPERAZINE MALEATE 10 MG TABLET PO ONE (17:22)
[2017-12-26] MEDS ORDERED: DIPHENHYDRAMINE HCL 50 MG CAPSULE PO ONE (17:22)
[2017-12-26] MEDS ORDERED: KETOROLAC TROMETHAMINE 60 MG/2 ML SDV IM ONE (17:59)
[2017-12-26 18:11] LABS: ABSOLUTE BASOPHILS # (AUTO) 0.1 10^3/uL (0.0-0.2); ABSOLUTE LYMPHOCYTES (AUTO) 1.2 10^3/uL (0.5-4.7); ABSOLUTE MONOCYTES (AUTO) 1.2 10^3/uL (0.1-1.4); ABSOLUTE NEUT (AUTO) 9.5 10^3/uL (1.7-8.2); BASOPHILS % (AUTO) 0.5 % (0-2); EOSINOPHILS % (AUTO) 0.3 % (0-6); HEMATOCRIT 39.9 % (36.0-47.0); HEMOGLOBIN 13.7 g/dL (12.0-15.5); LYMPHOCYTES % (AUTO) 10.2 % (13-45); MEAN CORPUSCULAR HEMOGLOBIN 31.2 pg (27.0-33.4); MEAN CORPUSCULAR HGB CONC 34.4 g/dL (32.0-36.0); MEAN CORPUSCULAR VOLUME 91 fl (80-97); MONOCYTES % (AUTO) 9.9 % (3-13); PLATELET COUNT 239 10^3/uL (150-450); RED BLOOD COUNT 4.39 10^6/uL (3.72-5.28); RED CELL DISTRIBUTION WIDTH 13.4 % (11.5-14.0); SEGMENTED NEUTROPHILS % (AUTO) 79.1 % (42-78); TOTAL CELLS COUNTED % (AUTO) 100 %
[2017-12-26 18:31] LABS: ALANINE AMINOTRANSFERASE 18 U/L (9-52); ALKALINE PHOSPHATASE 98 U/L (38-126); ANION GAP 12 (5-19); ASPARTATE AMINO TRANSFERASE 14 U/L (14-36); BILIRUBIN,DIRECT 0.4 mg/dL (0.0-0.4); BILIRUBIN,TOTAL 0.7 mg/dL (0.2-1.3); BLOOD UREA NITROGEN 11 mg/dL (7-20); CALCIUM 9.6 mg/dL (8.4-10.2); CARBON DIOXIDE 28 mmol/L (22-30); CHLORIDE 104 mmol/L (98-107); GLUCOSE 102 mg/dL (75-110); POTASSIUM 4.1 mmol/L (3.6-5.0); SODIUM 143.6 mmol/L (137-145); TOTAL PROTEIN 7.4 g/dL (6.3-8.2)
[2017-12-26] MEDS ORDERED: HYDROCODONE/ACETAMINOPHEN 5-325 MG (6 TAB/ER DISP) PO PRN (19:31)
[2017-12-26 20:03] VITALS: BP 103/61
== END 2017-12-26 20:09 | disposition home or self-care (01) ==
LOC: ER 14:59
DX: G44.209 Tension-type headache, unspecified, not intractable (principal); R03.0 Elevated blood-pressure reading, without diagnosis of hypertension; H53.149 Visual discomfort, unspecified; R50.9 Fever, unspecified; J45.909 Unspecified asthma, uncomplicated; Z86.61 Personal history of infections of the central nervous system
CPT/HCPCS: 99284; 96372; 36415; 85025; 80053; 74022; 70450; A9270 ×2; J1885; S0183

== ENCOUNTER 2017-12-29 21:28 | Inpatient (IN) | payer MEDICARE, MEDICAID ==
--- NOTE | 2017-12-29 22:28 | ER Document Report ---
ED General - General Mode of Arrival: Ambulatory Information source: Patient TRAVEL OUTSIDE OF THE [place] IN LAST 30 DAYS: No <LIVE DELGADO - Last Filed: 12/30/17 00:30> <JANICE HALL - Last Filed: 12/30/17 03:09> - General Chief Complaint: Skin Problem Stated Complaint: ABDOMINAL PAIN Time Seen by Provider: 12/29/17 22:08 Notes: Patient is a 57-year-old female with a history of Crohn's disease, fibromyalgia , arthritis, asthma presents to the emergency department complaining of lower abdominal pain and redness as well as a fever onset Wednesday. Patient states she had a mesh implant due to an hernia done several years ago which became infected and had to be replaced. Patient states her symptoms today are similar to when her first mesh implant became infected. She also states there is a hard knot around her umbilicus as well. Patient states she had a fever of 102 today and she took some Tylenol which broke her fever. Patient denies any nausea, vomiting or diarrhea. (LIVE DELGADO) - Related Data Allergies/Adverse Reactions: adhesive tape [Adhesive Tape] Allergy (Verified 12/26/17 15:31) cephalexin monohydrate [From Keflex] Allergy (Verified 12/26/17 15:31) codeine [Codeine] Allergy (Verified 12/26/17 15:31) erythromycin base [Erythromycin Base] Allergy (Verified 12/26/17 15:31) metronidazole [From Flagyl] Allergy (Verified 12/26/17 15:31) Metronidazole HCl [From Flagyl] Allergy (Verified 12/26/17 15:31) oxaprozin [From Daypro] Allergy (Verified 12/26/17 15:31) Penicillins Allergy (Verified 12/26/17 15:31) Past Medical History - General Information source: Patient - Social History Smoking Status: Never Smoker Cigarette use (# per day): No Chew tobacco use (# tins/day): No Frequency of alcohol use: None Drug Abuse: None Family History: CAD, DM, Hyperlipidemia Pulmonary Medical History: Reports: Hx Asthma GI Medical History: Reports: Hx Crohn's Disease Musculoskeletal Medical History: Reports Hx Arthritis, Reports Hx Fibromyalgia Past Surgical History: Reports: Hx Abdominal Surgery, Hx Appendectomy, Hx Bowel Surgery - small bowel, hernia x 2, Hx Cholecystectomy, Hx Hysterectomy - Immunizations Immunizations up to date: Yes Hx Diphtheria, Pertussis, Tetanus Vaccination: Yes <DANNY,LIVE - Last Filed: 12/30/17 00:30> Review of Systems - Review of Systems Constitutional: See HPI, Fever EENT: No symptoms reported Cardiovascular: No symptoms reported Respiratory: No symptoms reported Gastrointestinal: See HPI, Abdominal pain Genitourinary: No symptoms reported Female Genitourinary: No symptoms reported Musculoskeletal: No symptoms reported Skin: See HPI Hematologic/Lymphatic: No symptoms reported Neurological/Psychological: No symptoms reported -: Yes All other systems reviewed and negative <LIVE DELGADO - Last Filed: 12/30/17 00:30> Physical Exam - General General appearance: Appears well, Alert In distress: None - HEENT Head: Normocephalic, Atraumatic Eyes: Normal Conjunctiva: Normal Extraocular movements intact: Yes Pupils: PERRL Neck: Normal - Respiratory Respiratory status: No respiratory distress Chest status: Nontender Breath sounds: Normal Chest palpation: Normal - Cardiovascular Rhythm: Regular Heart sounds: Normal auscultation Murmur: No Friction rub: No Gallop: None auscultated - Abdominal Inspection: Morbidly Obese, Other - Circumferential erythema around the umbilicus to the suprapubic region, indurated, not fluctuant. Distension: No distension Bowel sounds: Normal Tenderness: Tender - Tender to palpation to an old midline incision. Organomegaly: No organomegaly - Extremities General upper extremity: Normal ROM General lower extremity: Normal ROM - Neurological Neuro grossly intact: Yes Cognition: Normal Orientation: AAOx4 [place] Coma Scale Eye Opening: Spontaneous [place] Coma Scale Verbal: Oriented [place] Coma Scale Motor: Obeys Commands [place] Coma Scale Total: 15 Speech: Normal - Psychological Associated symptoms: Normal affect, Normal mood - Skin Skin Temperature: Warm Skin Moisture: Dry Skin Color: Normal <DANNY,ROBERTNAVIN - Last Filed: 12/30/17 00:30> - Vital signs Vitals: Temp Pulse Resp BP Pulse Ox 98.8 F 80 20 126/55 H 98 12/29/17 21:43 12/29/17 21:43 12/29/17 21:43 12/29/17 21:43 12/29/17 21:43 Course - Laboratory Result Diagrams: 12/29/17 22:08 12/29/17 22:08 <LIVE DELGADO - Last Filed: 12/30/17 00:30> - Laboratory Result Diagrams: 12/29/17 22:08 12/29/17 22:08 - Diagnostic Test Radiology reviewed: Reports reviewed <JANICE HALL - Last Filed: 12/30/17 03:09> - Re-evaluation Re-evalutation: 12/29/17 23:41 Patient's IV was blown. Nurses are working on placing a new one. 12/30/17 00:30 Patient rechecked. IV is currently running. Patient has no complaints. (LIVE DELGADO) 12/30/17 03:07 Patient is a 57-year-old female who comes in with redness and tenderness of her abdominal wall. Patient has mesh and it was removed in the past due to infection. Replace number of years ago was by Dr. Powers at [place] who the patient does not see anymore. Patient has leukocytosis and reported fever at home. CT is concerning for probable abscess. Clinically, patient has cellulitis of her abdominal wall. Antibiotics have been started and fluids given. Patient has been discussed with Dr. Lindo who will admit the patient. Patient is agreeable to this plan. Stable time of admission. Given the patient's allergies, vancomycin and ertapenem have been started. (JANICE HALL) - Vital Signs Vital signs: Temp Pulse Resp BP Pulse Ox 98.8 F 80 20 126/55 H 98 12/29/17 21:43 12/29/17 21:43 12/29/17 21:43 12/29/17 21:43 12/29/17 21:43 - Laboratory Laboratory results interpreted by me: 12/29/17 12/29/17 22:08 22:08 WBC 14.4 H Hct 35.9 L Absolute Neutrophils 10.5 H Absolute Monocytes 1.5 H Direct Bilirubin 0.5 H Discharge <LIVE DELGADO - Last Filed: 12/30/17 00:30> - Discharge Admitting Provider: Surgicalist - [place] [facility] Admitted: Medical Floor <JANICE HALL - Last Filed: 12/30/17 03:09> - Discharge Clinical Impression: Abdominal wall cellulitis, Abdominal wall abscess Condition: Stable Disposition: ADMITTED INPATIENT Scribe Attestation: 12/30/17 03:09 I personally performed the services described in the documentation, reviewed and edited the documentation which was dictated to the scribe in my presence, and it accurately records my words and actions. (JANICE HALL) Scribe Documentation - Scribe Written by Scribe:: Tamika Morales, 12/29/2017 22:36 acting as scribe for :: Kailyn <LIVE DELGADO - Last Filed: 12/30/17 00:30>
[2017-12-29] MEDS ORDERED: VANCOMYCIN HCL INJ 1000 MG VIAL IV ONE (22:33)
[2017-12-29] MEDS ORDERED: ERTAPENEM SODIUM INJ 1 GM VIAL IV ONE (22:34)
[2017-12-29 22:38] LABS: ABSOLUTE BASOPHILS # (AUTO) 0.1 10^3/uL (0.0-0.2); ABSOLUTE EOSINOPHILS # (AUTO) 0.1 10^3/uL (0.0-0.6); ABSOLUTE LYMPHOCYTES (AUTO) 2.2 10^3/uL (0.5-4.7); ABSOLUTE MONOCYTES (AUTO) 1.5 10^3/uL (0.1-1.4); ABSOLUTE NEUT (AUTO) 10.5 10^3/uL (1.7-8.2); BASOPHILS % (AUTO) 0.5 % (0-2); EOSINOPHILS % (AUTO) 0.7 % (0-6); HEMATOCRIT 35.9 % (36.0-47.0); HEMOGLOBIN 12.2 g/dL (12.0-15.5); LYMPHOCYTES % (AUTO) 15.4 % (13-45); MEAN CORPUSCULAR HEMOGLOBIN 30.7 pg (27.0-33.4); MEAN CORPUSCULAR VOLUME 90 fl (80-97); MONOCYTES % (AUTO) 10.6 % (3-13); PLATELET COUNT 328 10^3/uL (150-450); RED BLOOD COUNT 3.98 10^6/uL (3.72-5.28); RED CELL DISTRIBUTION WIDTH 13.1 % (11.5-14.0); SEGMENTED NEUTROPHILS % (AUTO) 72.8 % (42-78); TOTAL CELLS COUNTED % (AUTO) 100 %; WHITE BLOOD COUNT 14.4 10^3/uL (4.0-10.5)
[2017-12-29 22:43] LABS: ALANINE AMINOTRANSFERASE 25 U/L (9-52); ALBUMIN 3.8 g/dL (3.5-5.0); ALKALINE PHOSPHATASE 105 U/L (38-126); ANION GAP 15 (5-19); ASPARTATE AMINO TRANSFERASE 24 U/L (14-36); BILIRUBIN,DIRECT 0.5 mg/dL (0.0-0.4); BILIRUBIN,TOTAL 0.8 mg/dL (0.2-1.3); BLOOD UREA NITROGEN 12 mg/dL (7-20); CALCIUM 9.4 mg/dL (8.4-10.2); CARBON DIOXIDE 24 mmol/L (22-30); CHLORIDE 105 mmol/L (98-107); GLUCOSE 103 mg/dL (75-110); POTASSIUM 4.1 mmol/L (3.6-5.0); SODIUM 143.6 mmol/L (137-145)
[2017-12-29 22:46] LABS: INTERNATIONAL RATION (INR) 1.06; PROTHROMBIN TIME 14.4 SEC (11.4-15.4)
[2017-12-29 22:47] LABS: PARTIAL THROMBOPLASTIN TIME 28.6 SEC (23.5-35.8)
--- NOTE | 2017-12-30 01:35 | RADIOLOGY REPORT (SQ) ---
EXAM DESCRIPTION: CT ABDOMEN PELVIS WITH IV CONTRAST COMPLETED DATE/TME: 12/30/2017 00:00 CLINICAL HISTORY: 57 years, Female, Abd pain, probable cellulitis of abd wall,?abscess COMPARISON: 02/28/2017 TECHNIQUE: Axial CT images of the abdomen and pelvis were obtained after the administration of IV contrast. Sagittal and coronal reformats were performed. DL 2180 Images stored on PACS. All CT scanners at this facility use dose modulation, iterative reconstruction, and/or weight based dosing when appropriate to reduce radiation dose to as low as reasonably achievable (ALARA). [facility]: Dose Right [facility]: CareDose [facility]: Dose Right [facility]: Teradose 4D [facility]: [employer] LIMITATIONS: None. FINDINGS: The lung bases are clear. The liver, pancreas, spleen, and adrenal glands are unremarkable. There are changes of a cholecystectomy. There is a subcentimeter cyst within the left kidney. No evidence of hydronephrosis or hydroureter bilaterally. The urinary bladder is unremarkable. There is no intraperitoneal free air or fluid. There is no lymphadenopathy. The abdominal aorta is unremarkable. The stomach is unremarkable. There is mild distention of the fluid-filled small bowel and colon. There are postsurgical changes to the right colon. There are changes of a hysterectomy. There are two hypodense collections within the subcutaneous soft tissues. The one near the midline with some peripheral enhancement measures 5.0 x 4.0 cm. Just above this and to the left is another hypodense collection which measures 4.1 x 3.0 cm. There are no lytic or blastic bone lesions. There is severe bilateral neural foraminal narrowing at L5-S1. IMPRESSION: Two hypodense collections within the ventral subcutaneous soft tissues with the more inferior and midline collection demonstrating some peripheral enhancement, which is concerning for an abscess. The other hypodense collection may represent a seroma or hematoma. A superimposed infection is not excluded. TECHNICAL DOCUMENTATION: Quality ID # [id number]: Final reports with documentation of one or more dose reduction techniques (e.g., Automated exposure control, adjustment of the mA and/or kV according to patient size, use of iterative reconstruction technique) 2010 [employer]- All Rights Reserved
[2017-12-30] MEDS ORDERED: ERTAPENEM SODIUM INJ 1 GM VIAL ONE ×2 (01:41→05:24)
[2017-12-30] MEDS ORDERED: PANTOPRAZOLE SODIUM 40 MG VIAL IV SCH (03:00)
[2017-12-30] MEDS ORDERED: ACETAMINOPHEN 325 MG TABLET ONE (05:23)
[2017-12-30] MEDS ORDERED: PANTOPRAZOLE SODIUM 40 MG VIAL IV ONE ×2 (05:23→05:45)
[2017-12-30] MEDS ORDERED: NORMAL SALINE 1000 ML 1,000 ML IV PRN (05:39)
[2017-12-30] MEDS ORDERED: DEXTROSE 40% GEL 15 GM TUBE PO PRN ×2 (05:39)
[2017-12-30] MEDS ORDERED: ACETAMINOPHEN 325 MG TABLET PO PRN (05:39)
[2017-12-30] MEDS ORDERED: ONDANSETRON HCL INJ/PF 4 MG/2 ML SDV IV PRN ×2 (05:39→16:13)
[2017-12-30] MEDS ORDERED: GLUCAGON,HUMAN RECOMB 1 MG INJ SUBCUT PRN (05:39)
[2017-12-30] MEDS ORDERED: DEXTROSE 50%-WATER 25 GM/50 ML DISP.SYRIN IV PRN ×2 (05:39)
[2017-12-30] MEDS: ACETAMINOPHEN 325 MG TABLET PO PRN (05:46)
[2017-12-30] MEDS: NORMAL SALINE 1000 ML 1,000 ML IV PRN ×2 (05:47→21:55)
[2017-12-30] MEDS ORDERED: VANCOMYCIN HCL 0 MG in DEXTROSE 5%-WATER 250 ML IV NR (06:00)
--- NOTE | 2017-12-30 06:14 | PDOC H&P ---
History of Present Illness Admission Date/PCP: 12/30/17 03:14 Patient complains of: Abdominal redness History of Present Illness: ISABEL DELGADO is a 57 year old female with a history of Crohn's disease, fibromyalgia, arthritis, asthma presents to the emergency department complaining of lower abdominal pain and redness as well as a fever onset Wednesday. Patient tells me that before sending the she was running fevers of [id number] associated with chills, nausea and nonbloody vomiting, she did not realize where that was coming from until Wednesday that she noticed some redness on her abdominal wall that has been worsening over time, now she has some induration in the center, warmth, tenderness and swelling. The patient was in the emergency department but was discharged home. Denies any secretion through the abdomen, shortness of breath, cough, chest pain , patient has chronic diarrhea about 6 bowel movements a day secondary to her Crohn's disease, denies urinary symptoms. Patient states she had a mesh implant due to an hernia done several years ago which became infected and had to be replaced. Patient states her symptoms today are similar to when her first mesh implant became infected. Dr. Fine is aware of the patient and ask hospitalist to admit the patient. CT of the abdomen with 2 collections in the subcutaneous tissue concerning for abscess. Past Medical History Cardiac Medical History: Denies: Atrial Fibrillation, Coronary Artery Disease, Myocardial Infarction, Hyperlipidema, Hypertension, Peripheral Vascular Disease, Pulmonary Embolism Pulmonary Medical History: Reports: Asthma Endocrine Medical History: Denies: Diabetes Mellitus Type 1, Diabetes Mellitus Type 2 GI Medical History: Reports: Crohn's Disease Musculoskeltal Medical History: Reports: Arthritis, Fibromyalgia Psychiatric Medical History: Denies: Depression Infectious Medical History: Denies: Methicillin-Resistant Staph Aureus Past Surgical History Past Surgical History: Reports: Appendectomy, Cholecystectomy, Herniorrhaphy - With mesh placement 2, Hysterectomy Social History Lives with: Family - Youngest son Smoking Status: Never Smoker Frequency of Alcohol Use: Occasional Hx Recreational Drug Use: No Drugs: None Hx Prescription Drug Abuse: No - Advance Directive Resuscitation Status: Full Code Family History Family History: CAD, DM, Hyperlipidemia Family History: Father is at 76 years old with history of diabetes mellitus. Mother alive on her 70s with history of early dementia and peripheral vascular disease with stents in her neck and groin. Parental Family History Reviewed: No Children Family History Reviewed: NA Sibling(s) Family History Reviewed.: NA Medication/Allergy Home Medications: Acetaminophen [Tylenol Arthritis 650 mg Tablet] 1,950 mg PO TID 06/08/17 Albuterol Sulfate [Proair HFA] 8.5 gm IH Q4HP PRN #1 hfa.aer.ad 06/08/17 Levofloxacin 500 mg PO DAILY #10 tablet 06/08/17 Prednisone [Deltasone 10 mg Tablet] 10 mg PO ASDIR PRN #21 tablet 06/08/17 Allergies/Adverse Reactions: cephalexin monohydrate [From Keflex] Allergy (Severe, Verified 12/30/17 06:08) Anaphylaxis erythromycin base [Erythromycin Base] Allergy (Severe, Verified 12/30/17 06:08) Generalized rash Penicillins Allergy (Severe, Verified 12/30/17 06:08) Shortness of Breath codeine [Codeine] Allergy (Mild, Verified 12/30/17 06:08) adhesive tape [Adhesive Tape] Allergy (Verified 12/26/17 15:31) metronidazole [From Flagyl] Allergy (Verified 12/30/17 06:08) Unknown reaction Metronidazole HCl [From Flagyl] Allergy (Verified 12/26/17 15:31) oxaprozin [From Daypro] Allergy (Verified 12/26/17 15:31) Review of Systems Review of Systems: As outlined in the HPI, all others negative Physical Exam Vital Signs: Temp Pulse Resp BP Pulse Ox 100.4 F 86 16 120/55 L 99 12/30/17 03:22 12/30/17 03:22 12/30/17 03:22 12/30/17 03:22 12/30/17 03:22 Additional comments: General appearance: Well-developed, obese, alert and cooperative, and appears to be in no acute distress Head: Normocephalic Eyes: PEERL, EOMI, vision is grossly intact. Ears: External auditory canal and tympanic membranes clear, hearing grossly intact. Nose: No nasal discharge. Throat: Oral cavity and pharynx normal. No inflammation, swelling, exudate or lesions. Neck: Neck supple, nontender without lymphadenopathy, masses or thyromegaly. Cardiac: Normal S1 and S2. No S3, S4 or murmurs. Rhythm is regular. There is no peripheral edema, cyanosis or pallor. Extremities are warm and well perfused. Capillary refill is less than 2 seconds. No carotid bruits. Lungs: Clear to auscultation and percussion without rales, rhonchi, wheezing or diminished breath sounds. Not using accessory muscles. Abdomen: Positive bowel sounds. Soft. Nondistended, tender around the erythema. No guarding or rebound. No masses. No hepatosplenomegaly Extremities: No significant deformity or joint abnormality. No edema. Peripheral pulses intact. No varicosities. Neurological: Cranial nerves II through XII grossly intact. Strength and sensation symmetric and intact throughout. Reflexes 2+ throughout. Skin: Abdominal wall in the periumbilical area with extensive redness with central induration, tenderness, warmth, no appreciated secretions. Psychiatric: The mental examination revealed the patient was oriented to person , place, and time. The patient was able to demonstrate good judgment on recent , without hallucinations, abnormal affect or abnormal behaviors. Results Laboratory Results: 12/29/17 12/29/17 12/29/17 22:08 22:08 22:08 WBC 14.4 H Hgb 12.2 Hct 35.9 L Plt Count 328 Seg Neutrophils % 72.8 Absolute Neutrophils 10.5 H Absolute Monocytes 1.5 H PT 14.4 INR 1.06 APTT 28.6 Sodium 143.6 Potassium 4.1 Chloride 105 Anion Gap 15 BUN 12 Creatinine 0.65 Glucose 103 Calcium 9.4 Total Bilirubin 0.8 Direct Bilirubin 0.5 H AST 24 ALT 25 Alkaline Phosphatase 105 Albumin 3.8 Impressions: Abdomen/Pelvis CT 12/30/17 00:00 IMPRESSION: Two hypodense collections within the ventral subcutaneous soft tissues with the more inferior and midline collection demonstrating some peripheral enhancement, which is concerning for an abscess. The other hypodense collection may represent a seroma or hematoma. A superimposed infection is not excluded. TECHNICAL DOCUMENTATION: Quality ID # 436: Final reports with documentation of one or more dose reduction techniques (e.g., Automated exposure control, adjustment of the mA and/or kV according to patient size, use of iterative reconstruction technique) 2010 [employer]- All Rights Reserved Assessment & Plan - Diagnosis (1) Abdominal wall abscess Is this a current diagnosis for this admission?: Yes Plan: Vision comes for approximately a week of worsening abdominal wall erythema and central induration, CT of the abdomen with a very likely possibility of 2 abscesses. General surgery is aware of the patient I will see her in consultation for today with Dr. Vazquez. It was recommended to keep the patient n.p.o., normal saline running at 1 50 cc/h. Patient has been started on IV Invanz and IV vancomycin. IV Protonix 40 mg 1. IV pain medication. (2) Crohn disease Is this a current diagnosis for this admission?: Yes Plan: Not on home medications, patient has chronic nonbloody diarrhea - Inpatient Certification Based on my medical assessment, after consideration of the patient's comorbidities, presenting symptoms, or acuity I expect that the services needed warrant INPATIENT care.: Yes I certify that my determination is in accordance with my understanding of Medicare's requirements for reasonable and necessary INPATIENT services [42 CFR 412.3e].: Yes Medical Necessity: Need for IV Antibiotics, Need for Surgery
--- NOTE | 2017-12-30 07:30 | PDOC CONSULTATION ---
Consultation Consult Date: 12/30/17 Consult reason:: Abdominal wall pains History of Present Illness Admission Date/PCP: 12/30/17 03:14 History of Present Illness: ISABEL DELGADO is a 57 year old female with hx of Crohn's, fibromyalgia, asthma. Also had small bowel resection about 24 years ago for complications of Chron's then developed incisional hernia. This was repaired twice with a mesh which was infected once and operated at [facility] by Dr Powers about 6 years ago. Seen at ED 5 days ago for headaches and some abdominal wall pains but was sent home without addressing the abdominal concerns of the patient. @ days ago c /o fever/chills and tender reddish swelling of abdominal wall. Went to ED and had a CT scan of abdomen which showed abscess of abdominal wall over the mesh. Past Medical History Cardiac Medical History: Denies: Atrial Fibrillation, Coronary Artery Disease, Myocardial Infarction, Hyperlipidema, Hypertension, Peripheral Vascular Disease, Pulmonary Embolism Pulmonary Medical History: Reports: Asthma Endocrine Medical History: Denies: Diabetes Mellitus Type 1, Diabetes Mellitus Type 2 GI Medical History: Reports: Crohn's Disease Musculoskeltal Medical History: Reports: Arthritis, Fibromyalgia Psychiatric Medical History: Denies: Depression Infectious Medical History: Denies: Methicillin-Resistant Staph Aureus Past Surgical History Past Surgical History: Reports: Appendectomy, Cholecystectomy, Herniorrhaphy - With mesh placement 2, Hysterectomy, Other - Small bowel resection for commplications due to Crohn's Incisional hernia Social History Lives with: Family - Youngest son Smoking Status: Never Smoker Frequency of Alcohol Use: Occasional Hx Recreational Drug Use: No Drugs: None Hx Prescription Drug Abuse: No - Advance Directive Resuscitation Status: Full Code Family History Family History: CAD, DM, Hyperlipidemia Parental Family History Reviewed: Yes Children Family History Reviewed: No Sibling(s) Family History Reviewed.: No Medication/Allergy Allergies/Adverse Reactions: cephalexin monohydrate [From Keflex] Allergy (Severe, Verified 12/30/17 06:08) Anaphylaxis erythromycin base [Erythromycin Base] Allergy (Severe, Verified 12/30/17 06:08) Generalized rash Penicillins Allergy (Severe, Verified 12/30/17 06:08) Shortness of Breath codeine [Codeine] Allergy (Mild, Verified 12/30/17 06:08) adhesive tape [Adhesive Tape] Allergy (Verified 12/26/17 15:31) metronidazole [From Flagyl] Allergy (Verified 12/30/17 06:08) Unknown reaction Metronidazole HCl [From Flagyl] Allergy (Verified 12/26/17 15:31) oxaprozin [From Daypro] Allergy (Verified 12/26/17 15:31) Review of Systems Constitutional: PRESENT: chills, fever(s) Eyes: PRESENT: other - no visual/hearing changes Cardiovascular: PRESENT: other - no cough/chest pains Gastrointestinal: PRESENT: abdominal pain, nausea Genitourinary: PRESENT: other - no dysuria Physical Exam Vital Signs: Temp Pulse Resp BP Pulse Ox 100.4 F 86 16 120/55 L 99 12/30/17 03:22 12/30/17 03:22 12/30/17 03:22 12/30/17 03:22 12/30/17 03:22 General appearance: PRESENT: mild distress Head exam: PRESENT: atraumatic Eye exam: PRESENT: conjunctiva pink Mouth exam: PRESENT: moist Neck exam: PRESENT: full ROM Respiratory exam: PRESENT: clear to auscultation roxana Cardiovascular exam: PRESENT: RRR Pulses: PRESENT: normal radial pulses Vascular exam: PRESENT: normal capillary refill GI/Abdominal exam: PRESENT: soft, tenderness - over swollen red lower abdominal wall Rectal exam: PRESENT: deferred Extremities exam: PRESENT: full ROM Musculoskeletal exam: PRESENT: ambulatory Neurological exam: PRESENT: alert, oriented to person, oriented to place, oriented to time, oriented to situation Psychiatric exam: PRESENT: appropriate affect Skin exam: PRESENT: erythema, warm Results Impressions: Abdomen/Pelvis CT 12/30/17 00:00 IMPRESSION: Two hypodense collections within the ventral subcutaneous soft tissues with the more inferior and midline collection demonstrating some peripheral enhancement, which is concerning for an abscess. The other hypodense collection may represent a seroma or hematoma. A superimposed infection is not excluded. TECHNICAL DOCUMENTATION: Quality ID # 436: Final reports with documentation of one or more dose reduction techniques (e.g., Automated exposure control, adjustment of the mA and/or kV according to patient size, use of iterative reconstruction technique) 2010 [employer]- All Rights Reserved Assessment & Plan - Diagnosis (1) Infected prosthetic mesh of abdominal wall Is this a current diagnosis for this admission?: Yes - Time Time Spent: 30 to 50 Minutes - Inpatient Certification Medical Necessity: Need for Pain Control, Need for IV Antibiotics, Need for Surgery - Plan Summary Plan Summary: Keep NPO Hydrate IV antibiotics OR for drainage of abscess and possible removal of mesh
[2017-12-30] MEDS: PANTOPRAZOLE SODIUM 40 MG VIAL IV SCH (09:21)
[2017-12-30] MEDS: VANCOMYCIN HCL 1,250 MG in DEXTROSE 5%-WATER 250 ML IV SCH ×2 (09:46→22:46)
[2017-12-30] MEDS ORDERED: SUCCINYLCHOLINE CHLORIDE INJ 200 MG/10 ML VIAL ONE (13:23)
[2017-12-30] MEDS ORDERED: BUPIVACAINE HCL 0.25 % INJ/PF (2.5 MG/1 ML) 30 ML VIAL ONE (13:38)
[2017-12-30] MEDS ORDERED: BUPIVACAINE INJ/PF LIPOSOME/PF 266 MG/20 ML SDV ONE (13:38)
--- NOTE | 2017-12-30 14:09 | PDOC PROGRESS REPORT ---
Subjective Progress Note for:: 12/30/17 Subjective:: The patient is a morbidly obese, pleasant 57-year-old female who presented to the emergency room with fevers and evidence of cellulitis on her abdomen. She has had a previous surgery with mesh placement approximately 15 years ago. The mesh became infected and she had to have further surgical procedures. In the emergency room she was found to have extensive cellulitis. She had a CT scan of the abdomen and pelvis which revealed 2 hypodense collections within the ventral subcutaneous soft tissues with the more inferior and midline collection demonstrating some peripheral enhancement concerning for abscess. The other hypodense collection may represent a seroma or hematoma. The hospitalist service was contacted by the general surgeon as it was late in the evening and we admitted her to the hospital. She is scheduled to go to the operating room today. Her only other past medical history other than her morbid obesity is that she has Crohn's disease. Today when I saw her she is still awaiting surgery. She is n.p.o. and states that she is quite hungry. Otherwise she states that she is feeling a little better after receiving IV antibiotics. She states her abdomen is still quite sore but she thinks the erythema has improved a bit. She continues to have fevers and shaking chills. No chest pain, shortness of breath or cough. No nausea vomiting or diarrhea. No urinary complaints. Reason For Visit: ABDOMINAL WALL CELLULITIS WITH ABSCESS Physical Exam Vital Signs: Temp Pulse Resp BP Pulse Ox 98.7 F 77 18 121/52 L 100 12/30/17 11:34 12/30/17 11:34 12/30/17 11:34 12/30/17 11:34 12/30/17 11:34 General appearance: PRESENT: morbidly obese, well-developed, well-nourished, other - She is resting comfortably in no acute distress Head exam: PRESENT: atraumatic, normocephalic Mouth exam: PRESENT: moist, tongue midline Respiratory exam: PRESENT: clear to auscultation roxana, other - This was an anterior exam. ABSENT: rales, rhonchi, wheezes Cardiovascular exam: PRESENT: RRR. ABSENT: diastolic murmur, rubs, systolic murmur GI/Abdominal exam: PRESENT: other - Abdomen is morbidly obese. She has a large midline scar with surrounding erythema on either side. There is an area of induration under the umbilicus. It is quite tender to palpation. She has positive bowel sounds Rectal exam: PRESENT: deferred Extremities exam: PRESENT: pedal edema. ABSENT: clubbing, tenderness Musculoskeletal exam: PRESENT: ambulatory Neurological exam: PRESENT: alert, awake, oriented to person, oriented to place , oriented to time, oriented to situation, CN II-XII grossly intact. ABSENT: motor sensory deficit Psychiatric exam: PRESENT: appropriate affect, normal mood. ABSENT: homicidal ideation, suicidal ideation Skin exam: PRESENT: dry, intact, warm, other - Erythema across the mid abdomen. ABSENT: cyanosis, rash Results Impressions: Abdomen/Pelvis CT 12/30/17 00:00 IMPRESSION: Two hypodense collections within the ventral subcutaneous soft tissues with the more inferior and midline collection demonstrating some peripheral enhancement, which is concerning for an abscess. The other hypodense collection may represent a seroma or hematoma. A superimposed infection is not excluded. TECHNICAL DOCUMENTATION: Quality ID # 436: Final reports with documentation of one or more dose reduction techniques (e.g., Automated exposure control, adjustment of the mA and/or kV according to patient size, use of iterative reconstruction technique) 2010 [employer]- All Rights Reserved Assessment & Plan - Diagnosis (1) Abdominal wall abscess Is this a current diagnosis for this admission?: Yes Plan: The patient is scheduled to go to the operating room today. She has surrounding cellulitis around his abscess. She will continue IV vancomycin and ertapenem. This is the first full day of treatment. (2) Crohns disease Is this a current diagnosis for this admission?: Yes Plan: Stable (3) Morbid obesity Is this a current diagnosis for this admission?: Yes Plan: Dietary discretion is advised. Certainly her weight is making her overall situation much worse - Time Time Spent with patient: 15-24 minutes - Inpatient Certification Medical Necessity: Other - Inpatient hospitalization remains necessary. The patient has a cellulitis and abdominal abscess. She is going to require surgery today. Timing of disposition will be determined by her clinical course.
[2017-12-30] MEDS ORDERED: LIDOCAINE 1% INJ-PF (10 MG/ML) 30 ML SDV ONE (14:45)
[2017-12-30] MEDS ORDERED: FENTANYL CITRATE INJ/PF 250 MCG/5 ML AMPULE ONE (15:38)
[2017-12-30] MEDS ORDERED: MIDAZOLAM 2 MG/2 ML INJ ONE (15:38)
[2017-12-30] MEDS ORDERED: LIDOCAINE 2% INJ-PF (20 MG/ML) 10 ML AMPUL ONE (15:38)
[2017-12-30] MEDS ORDERED: PROPOFOL INJ 200 MG/20 ML VIAL IV ONE (15:39)
[2017-12-30] MEDS ORDERED: ONDANSETRON HCL INJ/PF 4 MG/2 ML SDV ONE (15:39)
[2017-12-30] MEDS ORDERED: ACETAMINOPHEN 1,000 MG/100 ML RTUPB IV ONE (15:39)
[2017-12-30] MEDS ORDERED: DEXAMETHASONE SOD PHOSPHATE INJ 4 MG/1 ML VIAL ONE (15:39)
[2017-12-30] MEDS ORDERED: MEPERIDINE HCL/PF INJ 25 MG/1 ML DISP.SYRIN IV PRN (16:13)
[2017-12-30] MEDS ORDERED: DIPHENHYDRAMINE HCL 50 MG/ML VIAL IV PRN (16:13)
[2017-12-30] MEDS ORDERED: FENTANYL CITRATE INJ/PF 100 MCG/2 ML AMPUL IV PRN ×3 (16:13)
[2017-12-30] MEDS ORDERED: PROMETHAZINE HCL INJ 25 MG/1 ML VIAL IV PRN ×2 (16:13)
--- NOTE | 2017-12-30 16:28 | Operative Report ---
Operative Report DATE OF SURGERY: 12/30/17 PREOPERATIVE DIAGNOSIS: Abdominal wall abscess. History of abdominal wall hernia repair with mesh POSTOPERATIVE DIAGNOSIS: Same with multiloculated deep soft tissue infection; no evidence of intraperitoneal penetration OPERATION: Abdominal wall exploration, debridement, irrigation and packing SURGEON: MAILE STATON ANESTHESIA: GA TISSUE REMOVED OR ALTERED: Pus, skin and subcutaneous tissue COMPLICATIONS: None ESTIMATED BLOOD LOSS: Minimal INTRAOPERATIVE FINDINGS: See below PROCEDURE: Patient was taken to the main operating room where general anesthesia was induced. The abdomen was exposed, prepped and draped sterile fashion with Betadine. Surgical plan surgical timeout were conducted. Skin was any stones 1% plain lidocaine. The previous midline incision was opened for a length of approximately 10 cm. We immediately got into yellow creamy pus which was cultured and sent for Gram stain and sensitivity We proceeded to open up the full depth of the subcutaneous tissue. This then extended into several large pockets of abscess both above and below the umbilicus and primarily to the left of the umbilicus. The level of debridement was taken down to the deep scar tissue. There was a single loop of knotted Prolene suture free-floating in the past and this was removed. I scrubbed the scar tissue with 4 x 4's and I did not see any visible mesh. All Pockets were broken up with index finger. Again there was no evidence of penetration. I felt the extensive debridement was very adequate. The wound irrigated out with multiple liters of saline solution open including all of the pockets with Betadine soaked Kerlix dressing. 4 x 4's applied. Patient tolerated procedure well, extubated, taken recovery in stable condition.
[2017-12-30] MEDS: FENTANYL CITRATE INJ/PF 100 MCG/2 ML AMPUL ONE ×2 (16:37→16:50)
[2017-12-30] MEDS: HYDROMORPHONE HCL INJ/PF 2 MG/ML AMPULE IV PRN (21:55)
[2017-12-30] MEDS: ERTAPENEM SODIUM 1 GM in NORMAL SALINE 50 ML IV SCH (21:56)
[2017-12-31 05:30] LABS: BASOPHILS % (AUTO) 0.3 % (0-2); EOSINOPHILS % (AUTO) 0.1 % (0-6); HEMATOCRIT 32.4 % (36.0-47.0); LYMPHOCYTES % (AUTO) 6.9 % (13-45); MEAN CORPUSCULAR HEMOGLOBIN 30.5 pg (27.0-33.4); MEAN CORPUSCULAR VOLUME 90 fl (80-97); MONOCYTES % (AUTO) 5.9 % (3-13); PLATELET COUNT 302 10^3/uL (150-450); RED BLOOD COUNT 3.61 10^6/uL (3.72-5.28); SEGMENTED NEUTROPHILS % (AUTO) 86.8 % (42-78); WHITE BLOOD COUNT 11.8 10^3/uL (4.0-10.5)
[2017-12-31 05:31] LABS: ABSOLUTE LYMPHOCYTES (AUTO) 0.8 10^3/uL (0.5-4.7); ABSOLUTE MONOCYTES (AUTO) 0.7 10^3/uL (0.1-1.4); ABSOLUTE NEUT (AUTO) 10.2 10^3/uL (1.7-8.2); TOTAL CELLS COUNTED % (AUTO) 100 %
[2017-12-31 05:39] LABS: ALANINE AMINOTRANSFERASE 16 U/L (9-52); ALBUMIN 3.4 g/dL (3.5-5.0); ALKALINE PHOSPHATASE 89 U/L (38-126); ANION GAP 10 (5-19); ASPARTATE AMINO TRANSFERASE 15 U/L (14-36); BILIRUBIN,DIRECT 0.3 mg/dL (0.0-0.4); BILIRUBIN,TOTAL 0.3 mg/dL (0.2-1.3); BLOOD UREA NITROGEN 7 mg/dL (7-20); CARBON DIOXIDE 25 mmol/L (22-30); CHLORIDE 109 mmol/L (98-107); GLUCOSE 127 mg/dL (75-110); POTASSIUM 3.8 mmol/L (3.6-5.0); SODIUM 144.1 mmol/L (137-145); TOTAL PROTEIN 6.8 g/dL (6.3-8.2)
[2017-12-31] MEDS: HYDROMORPHONE HCL INJ/PF 2 MG/ML AMPULE IV PRN ×3 (06:33→23:11)
[2017-12-31] MEDS: NORMAL SALINE 1000 ML 1,000 ML IV PRN ×2 (09:13→20:11)
[2017-12-31] MEDS: PANTOPRAZOLE SODIUM 40 MG VIAL IV SCH (10:03)
[2017-12-31 10:30] LABS: VANCOMYCIN,TROUGH 10.8 ug/mL (5.0-20.0)
[2017-12-31] MEDS: VANCOMYCIN HCL 1,250 MG in DEXTROSE 5%-WATER 250 ML IV SCH ×2 (10:52→22:51)
--- NOTE | 2017-12-31 21:19 | PDOC PROGRESS REPORT ---
Subjective Progress Note for:: 12/31/17 Subjective:: Patient has been having some abdominal pain since her surgery yesterday. Is able to eat and drink without difficulty. No nausea vomiting. No fever or chills. She reports her cellulitis is much improved. No fevers or chills. Reason For Visit: ABDOMINAL WALL CELLULITIS WITH ABSCESS Physical Exam Vital Signs: Temp Pulse Resp BP Pulse Ox 98.8 F 67 16 118/56 L 100 12/31/17 15:37 12/31/17 15:37 12/31/17 15:37 12/31/17 15:37 12/31/17 15:37 Intake & Output 12/30/17 12/31/17 01/01/18 06:59 06:59 06:59 Intake Total 3357 2656 Output Total 710 100 Balance 2647 2556 Weight 135 kg General appearance: PRESENT: no acute distress, morbidly obese Head exam: PRESENT: atraumatic, normocephalic Eye exam: ABSENT: conjunctival injection, scleral icterus Mouth exam: PRESENT: moist, tongue midline Respiratory exam: PRESENT: clear to auscultation roxana, unlabored. ABSENT: rales , rhonchi, tachypnea, wheezes Cardiovascular exam: PRESENT: RRR. ABSENT: systolic murmur Pulses: PRESENT: normal radial pulses GI/Abdominal exam: PRESENT: normal bowel sounds, soft, tenderness. ABSENT: firm , guarding Extremities exam: ABSENT: pedal edema Neurological exam: PRESENT: alert, awake, oriented to person, oriented to place , oriented to situation, CN II-XII grossly intact Psychiatric exam: PRESENT: appropriate affect. ABSENT: anxious Skin exam: PRESENT: dry, warm, other - Patient has dressing over wound where she underwent I&D of abdominal wall abscess yesterday. Cellulitis is lightening in color, receeding from demarcation lines. Results Laboratory Results: 12/31/17 05:00 12/31/17 05:00 12/31/17 12/31/17 05:00 05:00 WBC 11.8 H RBC 3.61 L Hgb 11.0 L Hct 32.4 L MCV 90 MCH 30.5 MCHC 34.0 RDW 13.0 Plt Count 302 Seg Neutrophils % 86.8 H Lymphocytes % 6.9 L Monocytes % 5.9 Eosinophils % 0.1 Basophils % 0.3 Absolute Neutrophils 10.2 H Absolute Lymphocytes 0.8 Absolute Monocytes 0.7 Absolute Eosinophils 0.0 Absolute Basophils 0.0 Sodium 144.1 Potassium 3.8 Chloride 109 H Carbon Dioxide 25 Anion Gap 10 BUN 7 Creatinine 0.58 Est GFR ( Amer) > 60 Est GFR (Non-Af Amer) > 60 Glucose 127 H Calcium 9.0 Magnesium 2.2 Total Bilirubin 0.3 AST 15 ALT 16 Alkaline Phosphatase 89 Total Protein 6.8 Albumin 3.4 L Impressions: Abdomen/Pelvis CT 12/30/17 00:00 IMPRESSION: Two hypodense collections within the ventral subcutaneous soft tissues with the more inferior and midline collection demonstrating some peripheral enhancement, which is concerning for an abscess. The other hypodense collection may represent a seroma or hematoma. A superimposed infection is not excluded. TECHNICAL DOCUMENTATION: Quality ID # 436: Final reports with documentation of one or more dose reduction techniques (e.g., Automated exposure control, adjustment of the mA and/or kV according to patient size, use of iterative reconstruction technique) 2010 [employer]- All Rights Reserved Assessment & Plan - Diagnosis (1) Abdominal wall abscess Is this a current diagnosis for this admission?: Yes Plan: Patient is post I and D, POD 1. Surgery will place wound VAC after surgical site is evaluated. Wound culture is growing gram-positive cocci in clusters. We will continue broad-spectrum coverage including with vancomycin until cultures are final. (2) Crohns disease Is this a current diagnosis for this admission?: Yes Plan: Stable, monitor clinically (3) Morbid obesity Is this a current diagnosis for this admission?: Yes (4) Abdominal pain Qualifiers: Abdominal location: unspecified location Qualified Code(s): R10.9 - Unspecified abdominal pain Is this a current diagnosis for this admission?: Yes Plan: Secondary to large incision and drainage. She is using Dilaudid 1 mg IV every 4 hours as needed pain, to continue. - Time Time Spent with patient: 15-24 minutes Medications reviewed and adjusted accordingly: Yes - Inpatient Certification Based on my medical assessment, after consideration of the patient's comorbidities, presenting symptoms, or acuity I expect that the services needed warrant INPATIENT care.: Yes I certify that my determination is in accordance with my understanding of Medicare's requirements for reasonable and necessary INPATIENT services [42 CFR 412.3e].: Yes Medical Necessity: Need for IV Antibiotics
[2017-12-31 21:50] LABS: HEMATOCRIT 34.5 % (36.0-47.0); HEMOGLOBIN 11.6 g/dL (12.0-15.5); MEAN CORPUSCULAR HEMOGLOBIN 30.6 pg (27.0-33.4); MEAN CORPUSCULAR HGB CONC 33.6 g/dL (32.0-36.0); MEAN CORPUSCULAR VOLUME 91 fl (80-97); PLATELET COUNT 376 10^3/uL (150-450); RED BLOOD COUNT 3.79 10^6/uL (3.72-5.28); RED CELL DISTRIBUTION WIDTH 13.5 % (11.5-14.0); WHITE BLOOD COUNT 14.9 10^3/uL (4.0-10.5)
[2017-12-31 22:02] LABS: INTERNATIONAL RATION (INR) 0.99; PARTIAL THROMBOPLASTIN TIME 38.6 SEC (23.5-35.8); PROTHROMBIN TIME 13.6 SEC (11.4-15.4)
[2017-12-31] MEDS: ERTAPENEM SODIUM 1 GM in NORMAL SALINE 50 ML IV SCH (22:03)
--- NOTE | 2017-12-31 23:35 | PDOC PROGRESS REPORT ---
Subjective Progress Note for:: 12/31/17 Subjective:: Feels more comfortable post op Will change dressing and decide for possible placement of wound vac Continue IV antibiotics Reason For Visit: ABDOMINAL WALL CELLULITIS WITH ABSCESS Physical Exam Vital Signs: Temp Pulse Resp BP Pulse Ox 98.8 F 67 16 118/56 L 100 12/31/17 15:37 12/31/17 15:37 12/31/17 15:37 12/31/17 15:37 12/31/17 15:37 Intake & Output 12/30/17 12/31/17 01/01/18 06:59 06:59 06:59 Intake Total 3357 2656 Output Total 710 100 Balance 2647 2556 Weight 135 kg Results Laboratory Results: 12/31/17 21:45 12/31/17 21:45 12/31/17 12/31/17 12/31/17 05:00 05:00 21:45 WBC 11.8 H 14.9 H RBC 3.61 L 3.79 Hgb 11.0 L 11.6 L Hct 32.4 L 34.5 L MCV 90 91 MCH 30.5 30.6 MCHC 34.0 33.6 RDW 13.0 13.5 Plt Count 302 376 Seg Neutrophils % 86.8 H Lymphocytes % 6.9 L Monocytes % 5.9 Eosinophils % 0.1 Basophils % 0.3 Absolute Neutrophils 10.2 H Absolute Lymphocytes 0.8 Absolute Monocytes 0.7 Absolute Eosinophils 0.0 Absolute Basophils 0.0 Sodium 144.1 Potassium 3.8 Chloride 109 H Carbon Dioxide 25 Anion Gap 10 BUN 7 Creatinine 0.58 Est GFR ( Amer) > 60 Est GFR (Non-Af Amer) > 60 Glucose 127 H Calcium 9.0 Magnesium 2.2 Total Bilirubin 0.3 AST 15 ALT 16 Alkaline Phosphatase 89 Total Protein 6.8 Albumin 3.4 L 12/31/17 21:45 WBC RBC Hgb Hct MCV MCH MCHC RDW Plt Count Seg Neutrophils % Lymphocytes % Monocytes % Eosinophils % Basophils % Absolute Neutrophils Absolute Lymphocytes Absolute Monocytes Absolute Eosinophils Absolute Basophils Sodium Potassium Chloride Carbon Dioxide Anion Gap BUN Creatinine 0.61 Est GFR ( Amer) > 60 Est GFR (Non-Af Amer) > 60 Glucose Calcium Magnesium Total Bilirubin AST ALT Alkaline Phosphatase Total Protein Albumin Impressions: Abdomen/Pelvis CT 12/30/17 00:00 IMPRESSION: Two hypodense collections within the ventral subcutaneous soft tissues with the more inferior and midline collection demonstrating some peripheral enhancement, which is concerning for an abscess. The other hypodense collection may represent a seroma or hematoma. A superimposed infection is not excluded. 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
[2018-01-01 06:29] LABS: ABSOLUTE BASOPHILS # (AUTO) 0.1 10^3/uL (0.0-0.2); ABSOLUTE LYMPHOCYTES (AUTO) 1.9 10^3/uL (0.5-4.7); ABSOLUTE MONOCYTES (AUTO) 1.1 10^3/uL (0.1-1.4); ABSOLUTE NEUT (AUTO) 9.7 10^3/uL (1.7-8.2); BASOPHILS % (AUTO) 0.5 % (0-2); EOSINOPHILS % (AUTO) 0.3 % (0-6); HEMATOCRIT 34.3 % (36.0-47.0); HEMOGLOBIN 11.4 g/dL (12.0-15.5); LYMPHOCYTES % (AUTO) 14.9 % (13-45); MEAN CORPUSCULAR HEMOGLOBIN 30.3 pg (27.0-33.4); MEAN CORPUSCULAR HGB CONC 33.4 g/dL (32.0-36.0); MEAN CORPUSCULAR VOLUME 91 fl (80-97); MONOCYTES % (AUTO) 8.3 % (3-13); PLATELET COUNT 331 10^3/uL (150-450); RED BLOOD COUNT 3.78 10^6/uL (3.72-5.28); RED CELL DISTRIBUTION WIDTH 13.6 % (11.5-14.0); TOTAL CELLS COUNTED % (AUTO) 100 %; WHITE BLOOD COUNT 12.8 10^3/uL (4.0-10.5)
[2018-01-01] MEDS: ACETAMINOPHEN 325 MG TABLET PO PRN (07:39)
[2018-01-01] MEDS: PANTOPRAZOLE SODIUM 40 MG VIAL IV SCH (09:57)
[2018-01-01] MEDS: HYDROMORPHONE HCL INJ/PF 2 MG/ML AMPULE IV PRN (09:57)
[2018-01-01] MEDS: VANCOMYCIN HCL 1,250 MG in DEXTROSE 5%-WATER 250 ML IV SCH ×2 (09:58→22:39)
[2018-01-01] MEDS: ENOXAPARIN SODIUM INJ 40 MG/0.4 ML DISP.SYRIN SUBCUT SCH (09:58)
[2018-01-01] MEDS: NORMAL SALINE 1000 ML 1,000 ML IV PRN ×2 (12:13→19:17)
[2018-01-01] MEDS: OXYCODONE HCL IR 5 MG TABLET PO PRN ×2 (18:15→22:52)
--- NOTE | 2018-01-01 19:37 | PDOC PROGRESS REPORT ---
Subjective Progress Note for:: 01/01/18 Subjective:: Patient feels better. Pain is improving. Wound VAC is placed last night. She is eating and drinking without difficulty. No fever or chills. No nausea vomiting. No constipation or diarrhea. Reason For Visit: ABDOMINAL WALL CELLULITIS WITH ABSCESS Physical Exam Vital Signs: Temp Pulse Resp BP Pulse Ox 97.3 F 73 20 95/46 L 100 01/01/18 07:40 01/01/18 07:40 01/01/18 07:40 01/01/18 07:40 01/01/18 07:40 Intake & Output 12/31/17 01/01/18 01/02/18 06:59 06:59 06:59 Intake Total 3357 3390 3647 Output Total 710 500 Balance 2647 2890 3647 Weight 135 kg 116.1 kg General appearance: PRESENT: no acute distress, cooperative, morbidly obese Head exam: PRESENT: atraumatic, normocephalic Eye exam: ABSENT: conjunctival injection, scleral icterus Ear exam: PRESENT: normal external ear exam Mouth exam: PRESENT: moist, neck supple Respiratory exam: PRESENT: clear to auscultation roxana, unlabored. ABSENT: rales , rhonchi, wheezes Cardiovascular exam: PRESENT: RRR. ABSENT: systolic murmur Pulses: PRESENT: normal radial pulses GI/Abdominal exam: PRESENT: normal bowel sounds, soft, tenderness. ABSENT: distended, firm, guarding Rectal exam: PRESENT: deferred Extremities exam: ABSENT: pedal edema Musculoskeletal exam: PRESENT: normal inspection Neurological exam: PRESENT: alert, awake, oriented to person, oriented to place , oriented to situation Psychiatric exam: PRESENT: appropriate affect. ABSENT: anxious Skin exam: PRESENT: dry, warm, other Results Laboratory Results: 01/01/18 05:20 12/31/17 21:45 12/31/17 12/31/17 01/01/18 21:45 21:45 05:20 WBC 14.9 H 12.8 H RBC 3.79 3.78 Hgb 11.6 L 11.4 L Hct 34.5 L 34.3 L MCV 91 91 MCH 30.6 30.3 MCHC 33.6 33.4 RDW 13.5 13.6 Plt Count 376 331 Seg Neutrophils % 76.0 Lymphocytes % 14.9 Monocytes % 8.3 Eosinophils % 0.3 Basophils % 0.5 Absolute Neutrophils 9.7 H Absolute Lymphocytes 1.9 Absolute Monocytes 1.1 Absolute Eosinophils 0.0 Absolute Basophils 0.1 Creatinine 0.61 Est GFR ( Amer) > 60 Est GFR (Non-Af Amer) > 60 Impressions: Abdomen/Pelvis CT 12/30/17 00:00 IMPRESSION: Two hypodense collections within the ventral subcutaneous soft tissues with the more inferior and midline collection demonstrating some peripheral enhancement, which is concerning for an abscess. The other hypodense collection may represent a seroma or hematoma. A superimposed infection is not excluded. TECHNICAL DOCUMENTATION: Quality ID # 436: Final reports with documentation of one or more dose reduction techniques (e.g., Automated exposure control, adjustment of the mA and/or kV according to patient size, use of iterative reconstruction technique) 2010 [employer]- All Rights Reserved Assessment & Plan - Diagnosis (1) Abdominal wall abscess Is this a current diagnosis for this admission?: Yes Plan: She is growing gram-positive cocci in her wound culture. We will continue vancomycin while culture is still pending. She is status post I&D, surgery following, wound VAC in place. (2) Crohns disease Is this a current diagnosis for this admission?: Yes Plan: Stable, no additions or changes today. (3) Morbid obesity Is this a current diagnosis for this admission?: Yes Plan: Weight loss counseling was not discussed today. (4) Abdominal pain Qualifiers: Abdominal location: unspecified location Qualified Code(s): R10.9 - Unspecified abdominal pain Is this a current diagnosis for this admission?: Yes Plan: Improving, will continue current as needed opiates and transition hopefully to nonopiate pain control tomorrow. - Time Time Spent with patient: 25-34 minutes Medications reviewed and adjusted accordingly: Yes - Inpatient Certification Based on my medical assessment, after consideration of the patient's comorbidities, presenting symptoms, or acuity I expect that the services needed warrant INPATIENT care.: Yes I certify that my determination is in accordance with my understanding of Medicare's requirements for reasonable and necessary INPATIENT services [42 CFR 412.3e].: Yes Medical Necessity: Need for Pain Control, Need for IV Antibiotics
--- NOTE | 2018-01-01 20:22 | PDOC PROGRESS REPORT ---
Subjective Progress Note for:: 01/01/18 Subjective:: comfortable with wound vac which i placed early this am. Reason For Visit: ABDOMINAL WALL CELLULITIS WITH ABSCESS Physical Exam Vital Signs: Temp Pulse Resp BP Pulse Ox 98.8 F 67 16 128/57 H 100 01/01/18 19:41 01/01/18 19:41 01/01/18 19:41 01/01/18 19:41 01/01/18 19:41 Intake & Output 12/31/17 01/01/18 01/02/18 06:59 06:59 06:59 Intake Total 3357 3390 4407 Output Total 710 500 Balance 2647 2890 4407 Weight 135 kg 116.1 kg Exam: wound vac in place Results Laboratory Results: 01/01/18 05:20 12/31/17 21:45 12/31/17 12/31/17 01/01/18 21:45 21:45 05:20 WBC 14.9 H 12.8 H RBC 3.79 3.78 Hgb 11.6 L 11.4 L Hct 34.5 L 34.3 L MCV 91 91 MCH 30.6 30.3 MCHC 33.6 33.4 RDW 13.5 13.6 Plt Count 376 331 Seg Neutrophils % 76.0 Lymphocytes % 14.9 Monocytes % 8.3 Eosinophils % 0.3 Basophils % 0.5 Absolute Neutrophils 9.7 H Absolute Lymphocytes 1.9 Absolute Monocytes 1.1 Absolute Eosinophils 0.0 Absolute Basophils 0.1 Creatinine 0.61 Est GFR ( Amer) > 60 Est GFR (Non-Af Amer) > 60 Impressions: Abdomen/Pelvis CT 12/30/17 00:00 IMPRESSION: Two hypodense collections within the ventral subcutaneous soft tissues with the more inferior and midline collection demonstrating some peripheral enhancement, which is concerning for an abscess. The other hypodense collection may represent a seroma or hematoma. A superimposed infection is not excluded. TECHNICAL DOCUMENTATION: Quality ID # 436: Final reports with documentation of one or more dose reduction techniques (e.g., Automated exposure control, adjustment of the mA and/or kV according to patient size, use of iterative reconstruction technique) 2010 [employer]- All Rights Reserved Assessment & Plan - Time Time Spent with patient: 15-24 minutes - Plan Summary Plan Summary: Continue wound vac and IV antibiotic Dr Vazquez who did patient's debridement claims the abscess was above the fascia and did not involved the mesh and feels the infection may be from a free floating Prolene suture that got infected. However because of the underlying mesh, patient may need to be treated as if the mesh is involved and therefore needs prolonged antibiotic treatment. Discussed with LANE Duran Possible Picc line placement Wednesday.
[2018-01-01 20:45] LABS: HEMATOCRIT 34.1 % (36.0-47.0); HEMOGLOBIN 11.5 g/dL (12.0-15.5); MEAN CORPUSCULAR HEMOGLOBIN 30.8 pg (27.0-33.4); MEAN CORPUSCULAR HGB CONC 33.7 g/dL (32.0-36.0); MEAN CORPUSCULAR VOLUME 91 fl (80-97); PLATELET COUNT 396 10^3/uL (150-450); RED BLOOD COUNT 3.74 10^6/uL (3.72-5.28); RED CELL DISTRIBUTION WIDTH 13.4 % (11.5-14.0); WHITE BLOOD COUNT 10.7 10^3/uL (4.0-10.5)
[2018-01-01 21:10] LABS: ANION GAP 13 (5-19); BLOOD UREA NITROGEN 12 mg/dL (7-20); CALCIUM 8.7 mg/dL (8.4-10.2); CARBON DIOXIDE 21 mmol/L (22-30); CHLORIDE 112 mmol/L (98-107); GLUCOSE 81 mg/dL (75-110); POTASSIUM 4.1 mmol/L (3.6-5.0); SODIUM 145.9 mmol/L (137-145)
[2018-01-01] MEDS: ERTAPENEM SODIUM 1 GM in NORMAL SALINE 50 ML IV SCH (22:38)
[2018-01-02] MEDS: OXYCODONE HCL IR 5 MG TABLET PO PRN ×3 (06:32→17:35)
[2018-01-02] MEDS: NORMAL SALINE 1000 ML 1,000 ML IV PRN (06:32)
[2018-01-02] MEDS: ENOXAPARIN SODIUM INJ 40 MG/0.4 ML DISP.SYRIN SUBCUT SCH (09:51)
[2018-01-02] MEDS: VANCOMYCIN HCL 1,250 MG in DEXTROSE 5%-WATER 250 ML IV SCH (09:51)
[2018-01-02] MEDS ORDERED: METHOCARBAMOL 500 MG TABLET PO ONE (12:05)
--- NOTE | 2018-01-02 15:47 | PDOC PROGRESS REPORT ---
Subjective Progress Note for:: 01/02/18 Subjective:: mild pains at wound vac site Reason For Visit: ABDOMINAL WALL CELLULITIS WITH ABSCESS Physical Exam Vital Signs: Temp Pulse Resp BP Pulse Ox 98.7 F 68 18 130/47 H 100 01/02/18 11:49 01/02/18 11:49 01/02/18 11:49 01/02/18 11:49 01/02/18 11:49 Intake & Output 01/01/18 01/02/18 01/03/18 06:59 06:59 06:59 Intake Total 3390 6130 Output Total 500 Balance 2890 6130 Weight 116.1 kg Exam: wound vac in place with decreased inflammation around it Results Laboratory Results: 01/01/18 20:16 01/01/18 20:16 01/01/18 01/01/18 20:16 20:16 WBC 10.7 H RBC 3.74 Hgb 11.5 L Hct 34.1 L MCV 91 MCH 30.8 MCHC 33.7 RDW 13.4 Plt Count 396 Sodium 145.9 H Potassium 4.1 Chloride 112 H Carbon Dioxide 21 L Anion Gap 13 BUN 12 Creatinine 0.70 Est GFR ( Amer) > 60 Est GFR (Non-Af Amer) > 60 Glucose 81 Calcium 8.7 12/30/17 16:05 Abdomen - Abscess Gram Stain - Final 12/30/17 16:05 Abdomen - Abscess Wound Culture - Final Staphylococcus Aureus No Anaerobic Organisms Impressions: Abdomen/Pelvis CT 12/30/17 00:00 IMPRESSION: Two hypodense collections within the ventral subcutaneous soft tissues with the more inferior and midline collection demonstrating some peripheral enhancement, which is concerning for an abscess. The other hypodense collection may represent a seroma or hematoma. A superimposed infection is not excluded. TECHNICAL DOCUMENTATION: Quality ID # 436: Final reports with documentation of one or more dose reduction techniques (e.g., Automated exposure control, adjustment of the mA and/or kV according to patient size, use of iterative reconstruction technique) 2010 [employer]- All Rights Reserved Assessment & Plan - Time Time Spent with patient: 15-24 minutes - Plan Summary Plan Summary: Continue IV antibiotics For Picc line placement tomorrow and arrange wound vac at home with nurse visits to change vac and home iv antibiotics Arrange follow up with wound care center in about 1-2 weeks
--- NOTE | 2018-01-02 19:48 | PDOC PROGRESS REPORT ---
Subjective Progress Note for:: 01/02/18 Subjective:: Patient is feeling good today. A little bit swollen she feels. Eating and drinking fine. No chest pain constipation diarrhea nausea vomiting fever or chills. Reason For Visit: ABDOMINAL WALL CELLULITIS WITH ABSCESS Physical Exam Vital Signs: Temp Pulse Resp BP Pulse Ox 98.6 F 70 14 138/54 H 100 01/02/18 15:53 01/02/18 15:53 01/02/18 15:53 01/02/18 15:53 01/02/18 15:53 Intake & Output 01/01/18 01/02/18 01/03/18 06:59 06:59 06:59 Intake Total 3390 6130 791 Output Total 500 Balance 2890 6130 791 Weight 116.1 kg General appearance: PRESENT: no acute distress, cooperative, obese Mouth exam: PRESENT: moist, tongue midline Respiratory exam: PRESENT: clear to auscultation roxana, unlabored. ABSENT: rales , rhonchi, wheezes Cardiovascular exam: PRESENT: RRR. ABSENT: systolic murmur Pulses: PRESENT: normal radial pulses GI/Abdominal exam: PRESENT: normal bowel sounds, soft, tenderness. ABSENT: distended, firm, guarding Rectal exam: PRESENT: deferred Extremities exam: PRESENT: +1 edema Neurological exam: PRESENT: alert, awake, oriented to person, oriented to place , oriented to situation, CN II-XII grossly intact Psychiatric exam: PRESENT: appropriate affect. ABSENT: anxious Skin exam: PRESENT: dry, warm, other - Cellulitis around wound VAC resolving well. Results Laboratory Results: 01/01/18 20:16 01/01/18 20:16 01/01/18 01/01/18 20:16 20:16 WBC 10.7 H RBC 3.74 Hgb 11.5 L Hct 34.1 L MCV 91 MCH 30.8 MCHC 33.7 RDW 13.4 Plt Count 396 Sodium 145.9 H Potassium 4.1 Chloride 112 H Carbon Dioxide 21 L Anion Gap 13 BUN 12 Creatinine 0.70 Est GFR ( Amer) > 60 Est GFR (Non-Af Amer) > 60 Glucose 81 Calcium 8.7 12/30/17 16:05 Abdomen - Abscess Gram Stain - Final 12/30/17 16:05 Abdomen - Abscess Wound Culture - Final Staphylococcus Aureus No Anaerobic Organisms Impressions: Abdomen/Pelvis CT 12/30/17 00:00 IMPRESSION: Two hypodense collections within the ventral subcutaneous soft tissues with the more inferior and midline collection demonstrating some peripheral enhancement, which is concerning for an abscess. The other hypodense collection may represent a seroma or hematoma. A superimposed infection is not excluded. TECHNICAL DOCUMENTATION: Quality ID # 436: Final reports with documentation of one or more dose reduction techniques (e.g., Automated exposure control, adjustment of the mA and/or kV according to patient size, use of iterative reconstruction technique) 2010 [employer]- All Rights Reserved Assessment & Plan - Diagnosis (1) Abdominal wall abscess Is this a current diagnosis for this admission?: Yes Plan: Infection overall improved. Wound VAC in place and surgeons stated that they will reevaluated before she leaves. 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 She continues on Levaquin and I have discontinued the vancomycin and added doxycycline. An ID consult may be indicated to assure that the Doxy would be good coverage for this type of infection given that she has a mesh which has been infected in the past. Per the surgeon this wound did not involve the mesh. (2) Crohns disease Is this a current diagnosis for this admission?: Yes Plan: Stable. No changes. (3) Morbid obesity Is this a current diagnosis for this admission?: Yes Plan: Did not discuss today. (4) Abdominal pain Qualifiers: Abdominal location: unspecified location Qualified Code(s): R10.9 - Unspecified abdominal pain Is this a current diagnosis for this admission?: Yes Plan: Doing well on oxycodone 5 mg and I have changed it from every 4 to every 6 hours as needed. (5) Headache Is this a current diagnosis for this admission?: Yes Plan: This seems to be a tension headache. Tylenol is not helping that much. I have given the patient 1 dose of methocarbamol and if it is effective we can use this medication for muscle relaxation in the setting of a tension headache. Due to possible sedating effect of methocarbamol and opioids I only gave her 1 dose. - Time Time Spent with patient: 25-34 minutes Anticipated discharge: Home - Inpatient Certification Based on my medical assessment, after consideration of the patient's comorbidities, presenting symptoms, or acuity I expect that the services needed warrant INPATIENT care.: Yes I certify that my determination is in accordance with my understanding of Medicare's requirements for reasonable and necessary INPATIENT services [42 CFR 412.3e].: Yes Medical Necessity: Need Close Monitoring Due to Risk of Patient Decompensation, Risk of Complication if Not Cared For in Hospital
[2018-01-02] MEDS ORDERED: DOXYCYCLINE HYCLATE 100 MG TABLET PO SCH (22:00)
[2018-01-03] MEDS: OXYCODONE HCL IR 5 MG TABLET PO PRN ×4 (00:43→19:59)
[2018-01-03 05:28] LABS: HEMATOCRIT 34.9 % (36.0-47.0); HEMOGLOBIN 11.4 g/dL (12.0-15.5); MEAN CORPUSCULAR HEMOGLOBIN 29.5 pg (27.0-33.4); MEAN CORPUSCULAR HGB CONC 32.8 g/dL (32.0-36.0); MEAN CORPUSCULAR VOLUME 90 fl (80-97); PLATELET COUNT 408 10^3/uL (150-450); RED BLOOD COUNT 3.87 10^6/uL (3.72-5.28); RED CELL DISTRIBUTION WIDTH 13.3 % (11.5-14.0); WHITE BLOOD COUNT 8.6 10^3/uL (4.0-10.5)
[2018-01-03 05:47] LABS: ANION GAP 8 (5-19); BLOOD UREA NITROGEN 10 mg/dL (7-20); CALCIUM 8.9 mg/dL (8.4-10.2); CARBON DIOXIDE 30 mmol/L (22-30); CHLORIDE 108 mmol/L (98-107); GLUCOSE 78 mg/dL (75-110); POTASSIUM 3.9 mmol/L (3.6-5.0); SODIUM 145.6 mmol/L (137-145)
[2018-01-03] MEDS: ENOXAPARIN SODIUM INJ 40 MG/0.4 ML DISP.SYRIN SUBCUT SCH (09:48)
[2018-01-03] MEDS: ERTAPENEM SODIUM 1 GM in NORMAL SALINE 50 ML IV SCH (09:49)
--- NOTE | 2018-01-03 12:49 | RADIOLOGY REPORT (SQ) ---
EXAM DESCRIPTION: PICC INSERTION; FLUORO/CV PLACEMENT; U/S GUIDE FOR VASCULAR ACCESS COMPLETED DATE/TIME: 01/03/2018 12:31 pm REASON FOR STUDY: iv antibiotics; IV ACCESS COMPARISON: None. FLUOROSCOPY TIME: 0.2 minutes 2 images saved to PACS. TECHNIQUE: Fluoroscopic and ultrasound guided PICC placement. LIMITATIONS: None. PROCEDURE: After written consent and assessment were obtained, the patient was brought into the fluo roscopy room and place supine on the table. Ultrasound evaluation of potential access sites were perf ormed. After successfully identifying a patent left basilic vein, the left arm was prepped and draped in a sterile fashion along with the ultrasound probe. The entry site was anesthetized with 1% lidoca ine. A 21 gauge 7 cm needle was advanced through the skin and into the basilic vein under live ultras ound guidance. An ultrasound image was saved to PACS confirming access site. A .018 guide wire was then inserted through the needle and into the venous system. The needle was the removed and an 11 jaye de scalpel was used to make a 1cm skin incision. A 5 fr peel-away sheath was advanced over the wire and into the venous system. A measurement was then made using the existing wire and live fluoroscopic guidance. The wire was then removed and the trimmed. The PICC was advanced through the peel-away she ath and into the venous system. The peel-away sheath was removed and the catheter was adhered to the patients arm with a stat lock. The catheter was then aspirated and flushed and a sterile bandage was placed over the access site. A fluoroscopic spot image was saved to PACS confirming the catheter tip within the superior vena cava. IMPRESSION: SUCCESSFUL PLACEMENT OF A 5 FR DUAL LUMEN 48 CM PICC IN THE LEFT BASILIC VEIN. COMMENT: Patient medication list reviewed: Yes- Quality ID# 130:Eligible professional attests to doc umenting in the medical record they obtained, updated, or reviewed the patient's current medications. . Quality ID 145: Final reports for procedures using fluoroscopy that document radiation exposure mychal alize, or exposure time and number of fluorographic images (if radiation exposure indices are not avail able) Quality ID #76: The patient was prepped and draped using maximum sterile barrier technique including cap, mask, sterile gown, sterile gloves, a large sterile sheet, hand hygiene, and 2% Chlorhexidine fo r cutaneous antisepsis. When ultrasound is used, sterile ultrasound techniques are followed requiring sterile gel and sterile probes. TECHNICAL DOCUMENTATION: JOB ID: [id number] 2003 [employer]- All Rights Reserved rev Reading location - IP/workstation name: [facility]
--- NOTE | 2018-01-03 12:49 | RADIOLOGY REPORT (SQ) ---
EXAM DESCRIPTION: PICC INSERTION; FLUORO/CV PLACEMENT; U/S GUIDE FOR VASCULAR ACCESS COMPLETED DATE/TIME: 01/03/2018 12:31 pm REASON FOR STUDY: iv antibiotics; IV ACCESS COMPARISON: None. FLUOROSCOPY TIME: 0.2 minutes 2 images saved to PACS. TECHNIQUE: Fluoroscopic and ultrasound guided PICC placement. LIMITATIONS: None. PROCEDURE: After written consent and assessment were obtained, the patient was brought into the fluo roscopy room and place supine on the table. Ultrasound evaluation of potential access sites were perf ormed. After successfully identifying a patent left basilic vein, the left arm was prepped and draped in a sterile fashion along with the ultrasound probe. The entry site was anesthetized with 1% lidoca ine. A 21 gauge 7 cm needle was advanced through the skin and into the basilic vein under live ultras ound guidance. An ultrasound image was saved to PACS confirming access site. A .018 guide wire was then inserted through the needle and into the venous system. The needle was the removed and an 11 jaye de scalpel was used to make a 1cm skin incision. A 5 fr peel-away sheath was advanced over the wire and into the venous system. A measurement was then made using the existing wire and live fluoroscopic guidance. The wire was then removed and the trimmed. The PICC was advanced through the peel-away she ath and into the venous system. The peel-away sheath was removed and the catheter was adhered to the patients arm with a stat lock. The catheter was then aspirated and flushed and a sterile bandage was placed over the access site. A fluoroscopic spot image was saved to PACS confirming the catheter tip within the superior vena cava. IMPRESSION: SUCCESSFUL PLACEMENT OF A 5 FR DUAL LUMEN 48 CM PICC IN THE LEFT BASILIC VEIN. COMMENT: Patient medication list reviewed: Yes- Quality ID# 130:Eligible professional attests to doc umenting in the medical record they obtained, updated, or reviewed the patient's current medications. . Quality ID 145: Final reports for procedures using fluoroscopy that document radiation exposure mychal alize, or exposure time and number of fluorographic images (if radiation exposure indices are not avail able) Quality ID #76: The patient was prepped and draped using maximum sterile barrier technique including cap, mask, sterile gown, sterile gloves, a large sterile sheet, hand hygiene, and 2% Chlorhexidine fo r cutaneous antisepsis. When ultrasound is used, sterile ultrasound techniques are followed requiring sterile gel and sterile probes. TECHNICAL DOCUMENTATION: JOB ID: [id number] [employer]- All Rights Reserved rev Reading location - IP/workstation name: [facility]
--- NOTE | 2018-01-03 13:07 | PDOC PROGRESS REPORT ---
Subjective Progress Note for:: 01/03/18 Subjective:: No complaints. Reason For Visit: ABDOMINAL WALL CELLULITIS WITH ABSCESS Physical Exam Vital Signs: Temp Pulse Resp BP Pulse Ox 98.4 F 69 18 116/52 L 100 01/03/18 12:16 01/03/18 12:16 01/03/18 12:16 01/03/18 12:16 01/03/18 12:16 Intake & Output 01/02/18 01/03/18 01/04/18 06:59 06:59 06:59 Intake Total 6130 1641 Balance 6130 1641 Weight 120 kg General appearance: PRESENT: no acute distress Respiratory exam: PRESENT: clear to auscultation roxana Cardiovascular exam: PRESENT: RRR GI/Abdominal exam: PRESENT: soft - Soft, nondistended, nontender to palpation. Wound VAC in place. No surrounding erythema noted. Results Laboratory Results: 01/03/18 04:30 01/03/18 04:30 01/03/18 01/03/18 04:30 04:30 WBC 8.6 RBC 3.87 Hgb 11.4 L Hct 34.9 L MCV 90 MCH 29.5 MCHC 32.8 RDW 13.3 Plt Count 408 Sodium 145.6 H Potassium 3.9 Chloride 108 H Carbon Dioxide 30 Anion Gap 8 BUN 10 Creatinine 0.70 Est GFR ( Amer) > 60 Est GFR (Non-Af Amer) > 60 Glucose 78 Calcium 8.9 12/30/17 16:05 Abdomen - Abscess Gram Stain - Final 12/30/17 16:05 Abdomen - Abscess Wound Culture - Final Staphylococcus Aureus No Anaerobic Organisms Impressions: Abdomen/Pelvis CT 12/30/17 00:00 IMPRESSION: Two hypodense collections within the ventral subcutaneous soft tissues with the more inferior and midline collection demonstrating some peripheral enhancement, which is concerning for an abscess. The other hypodense collection may represent a seroma or hematoma. A superimposed infection is not excluded. TECHNICAL DOCUMENTATION: Quality ID # 436: Final reports with documentation of one or more dose reduction techniques (e.g., Automated exposure control, adjustment of the mA and/or kV according to patient size, use of iterative reconstruction technique) 2010 [employer]- All Rights Reserved Guidance Fluoroscopy 01/03/18 00:00 IMPRESSION: SUCCESSFUL PLACEMENT OF A 5 FR DUAL LUMEN 48 CM PICC IN THE LEFT BASILIC VEIN. Interventional Vascular Procedure 01/03/18 00:00 IMPRESSION: SUCCESSFUL PLACEMENT OF A 5 FR DUAL LUMEN 48 CM PICC IN THE LEFT BASILIC VEIN. PICC Line Insertion 01/03/18 00:00 IMPRESSION: SUCCESSFUL PLACEMENT OF A 5 FR DUAL LUMEN 48 CM PICC IN THE LEFT BASILIC VEIN. Assessment & Plan - Diagnosis (1) Abdominal wall abscess Is this a current diagnosis for this admission?: Yes Plan: Past post debridement and placement of wound VAC. Her wound culture grew out a pansensitive staph aureus. In light of no residual erythema and the organism being a pansensitive staph aureus, rather than put her through a prolonged IV antibiotic course with the attendant risks (especially in a patient with Crohn' s disease), I believe she would do well with p.o. Keflex for a couple weeks since she does have history of mesh placement in the abdominal wall. I have discussed this new culture result with Dr. Vazquez (her surgeon) who agrees. Patient was very upset that she had received a PICC line which would not be used. When I tried to explain to her about the culture results, she refused to listen. When she is more calm I will try to explain to her again about the reason needing behind changing our plans to p.o. antibiotics.
--- NOTE | 2018-01-03 15:14 | Progress Note ---
Provider Note Provider Note: ID Consult Note Asked to provide input regarding antibiotic therapy. Pt not seen or examined. Reviewed chart including VS, labs, imaging reports, operative report, other provider reports. Ms. Tello is a 57 year old woman with PMH including Crohn's disease with remote small bowel resection and subsequent incisional hernia that required repair with mesh and then revision of this around 6 years ago at [facility] following infection. She presented to [place] on 12/30 with c/o several days worsening pain and erythema of the lower abdominal wall with subjective fevers at home and associated nausea and vomiting. Pt had fever on presentation 101.3 F and tenderness, erythema and central induration of the abdominal wall near the umbilicus without expressible or draining pus. WBC count was 14.4k on admission. Blood cultures sent on admission, ultimately have shown no growth. CT scan showed two soft tissue collections 5x4 cm near midline with peripheral enhancement and another collection superolateral to this on the left around 4 x3 cm. Pt was seen by Surgery and taken to the OR on 12/30 for exploration , irrigation, debridement and packing of multiloculated deep soft tissue infection. Per operative note, the level of debridement was down to the deep scar tissue, mesh was not involved, and there was no intraperitoneal penetration. Pus encountered during I&D was sent for Gram Stain and culture with 1+ GPCs seen on stain and 3+ MSSA growth obtained. Pt was empirically on vancomycin 12/29-01/02 and ertapenem from 12/30 to present. She has allergies listed in her chart to penicillins (unspecified) and Keflex (anaphylaxis). Post operatively pt has a wound vac in place. WBC count has normalized. No further fevers since 12/30 have occurred. Impression/Recommendations Acute purulent bacterial skin/soft tissue infection due to MSSA, s/p I&D - With only pure growth of MSSA in culture from the abscess, no bacteremia, and clinical improvement, transitioning to oral antibiotic therapy is appropriate to continue treatment for any residual cellulitis. - Clarifying nature of patient's allergy history may be helpful to ensure that beta-lactam antibiotics are not needlessly being avoided, but if she did indeed have symptoms consistent with anaphylaxis with Keflex, available options of treating her Staphylococcus aureus infection are limited to doxycycline, clindamycin, Bactrim, and in all likelihood linezolid (would need to confirm with Micro lab susceptibility to linezolid if this is pursued). Given the patient's size, potential adverse effects, and frequency of dosing, the best options would be either linezolid 600 mg BID PO (again, provided that the isolate is sensitive) or doxycycline 100 mg PO BID. Both have excellent tissue penetration. The patient's home medications are listed only as Tylenol, no SSRIs that might preclude linezolid use if her isolate susceptible. If the patient is treated with doxycycline, the patient should be counseled on the need to avoid taking doxycycline at the same time as polyvalent cations (e.g. Tums, calcium supplements) that might bind and reduce doxycycline absorption. - Total duration of therapy should be based upon extent of infection. Generally , the recommended duration of therapy for cellulitis is 5 days but could be up to 14 days. Having had extensive debridement, resolution of systemic signs and symptoms, and marked improvement in local signs of inflammation, the patient may not require a long course of therapy. Aniket Major MD [facility] Infectious Diseases pager [phone]
--- NOTE | 2018-01-03 18:27 | PDOC PROGRESS REPORT ---
Subjective Progress Note for:: 01/03/18 Subjective:: Doing better, abdominal pain better. No fever or chills, no nausea vomiting. No diarrhea or constipation. Reason For Visit: ABDOMINAL WALL CELLULITIS WITH ABSCESS Physical Exam Vital Signs: Temp Pulse Resp BP Pulse Ox 98.4 F 69 18 116/52 L 100 01/03/18 12:16 01/03/18 12:16 01/03/18 12:16 01/03/18 12:16 01/03/18 12:16 Intake & Output 01/02/18 01/03/18 01/04/18 06:59 06:59 06:59 Intake Total 6130 1641 Balance 6130 1641 Weight 120 kg General appearance: PRESENT: no acute distress, cooperative, obese Mouth exam: PRESENT: moist, tongue midline Respiratory exam: PRESENT: clear to auscultation roxana, unlabored. ABSENT: rales , rhonchi, wheezes Cardiovascular exam: PRESENT: RRR. ABSENT: systolic murmur Pulses: PRESENT: normal radial pulses GI/Abdominal exam: PRESENT: normal bowel sounds, soft, some tenderness. ABSENT : distended, firm, guarding Rectal exam: PRESENT: deferred Extremities exam: PRESENT: +1 pedal edema Neurological exam: PRESENT: alert, awake, oriented to person, oriented to place , oriented to situation, CN II-XII grossly intact Psychiatric exam: PRESENT: appropriate affect. ABSENT: anxious Skin exam: PRESENT: dry, warm, other - Cellulitis around wound VAC improving. Results Laboratory Results: 01/03/18 04:30 01/03/18 04:30 01/03/18 01/03/18 04:30 04:30 WBC 8.6 RBC 3.87 Hgb 11.4 L Hct 34.9 L MCV 90 MCH 29.5 MCHC 32.8 RDW 13.3 Plt Count 408 Sodium 145.6 H Potassium 3.9 Chloride 108 H Carbon Dioxide 30 Anion Gap 8 BUN 10 Creatinine 0.70 Est GFR ( Amer) > 60 Est GFR (Non-Af Amer) > 60 Glucose 78 Calcium 8.9 Impressions: Abdomen/Pelvis CT 12/30/17 00:00 IMPRESSION: Two hypodense collections within the ventral subcutaneous soft tissues with the more inferior and midline collection demonstrating some peripheral enhancement, which is concerning for an abscess. The other hypodense collection may represent a seroma or hematoma. A superimposed infection is not excluded. TECHNICAL DOCUMENTATION: Quality ID # 436: Final reports with documentation of one or more dose reduction techniques (e.g., Automated exposure control, adjustment of the mA and/or kV according to patient size, use of iterative reconstruction technique) 2010 [employer]- All Rights Reserved Guidance Fluoroscopy 01/03/18 00:00 IMPRESSION: SUCCESSFUL PLACEMENT OF A 5 FR DUAL LUMEN 48 CM PICC IN THE LEFT BASILIC VEIN. Interventional Vascular Procedure 01/03/18 00:00 IMPRESSION: SUCCESSFUL PLACEMENT OF A 5 FR DUAL LUMEN 48 CM PICC IN THE LEFT BASILIC VEIN. PICC Line Insertion 01/03/18 00:00 IMPRESSION: SUCCESSFUL PLACEMENT OF A 5 FR DUAL LUMEN 48 CM PICC IN THE LEFT BASILIC VEIN. Assessment & Plan - Plan Summary Plan Summary: (1) Abdominal wall abscess Is this a current diagnosis for this admission?: Yes Plan: Infection overall improved. She is status post I&D and Wound VAC in place. She is growing community-acquired MSSA in her wound. She is currently off vancomycin and on ertapenem. An ID consult obtained today and agrees that doxycycline p.o. would be good coverage for this patient has a mesh which has been infected in the past. Per the surgeon this wound did not involve the mesh. ID recommends continuing IV antibiotics with patient in the hospital. Please see Dr. Major of ID note for details. (2) Crohns disease Is this a current diagnosis for this admission?: Yes Plan: Stable. No changes. (3) Morbid obesity Is this a current diagnosis for this admission?: Yes Plan: Did not discuss today. (4) Abdominal pain Qualifiers: Abdominal location: unspecified location Qualified Code(s): R10.9 - Unspecified abdominal pain Is this a current diagnosis for this admission?: Yes Plan: Doing well on oxycodone 5 mg and I have changed it from every 4 to every 6 hours as needed. (5) Headache Is this a current diagnosis for this admission?: Yes Plan: Thought to be tension. Improved.
--- NOTE | 2018-01-03 20:01 | PDOC PROGRESS REPORT ---
Subjective Progress Note for:: 01/03/18 Subjective:: Patient still angry about decision to go with p.o. antibiotics. She states that she knows her body and her body needs IV antibiotics. Reason For Visit: ABDOMINAL WALL CELLULITIS WITH ABSCESS Physical Exam Vital Signs: Temp Pulse Resp BP Pulse Ox 98.3 F 70 18 132/73 H 100 01/03/18 15:50 01/03/18 15:50 01/03/18 15:50 01/03/18 15:50 01/03/18 15:50 Intake & Output 01/02/18 01/03/18 01/04/18 06:59 06:59 06:59 Intake Total 6130 1641 1694 Balance 6130 1641 1694 Weight 120 kg Results Laboratory Results: 01/03/18 04:30 01/03/18 04:30 01/03/18 01/03/18 04:30 04:30 WBC 8.6 RBC 3.87 Hgb 11.4 L Hct 34.9 L MCV 90 MCH 29.5 MCHC 32.8 RDW 13.3 Plt Count 408 Sodium 145.6 H Potassium 3.9 Chloride 108 H Carbon Dioxide 30 Anion Gap 8 BUN 10 Creatinine 0.70 Est GFR ( Amer) > 60 Est GFR (Non-Af Amer) > 60 Glucose 78 Calcium 8.9 Impressions: Abdomen/Pelvis CT 12/30/17 00:00 IMPRESSION: Two hypodense collections within the ventral subcutaneous soft tissues with the more inferior and midline collection demonstrating some peripheral enhancement, which is concerning for an abscess. The other hypodense collection may represent a seroma or hematoma. A superimposed infection is not excluded. TECHNICAL DOCUMENTATION: Quality ID # 436: Final reports with documentation of one or more dose reduction techniques (e.g., Automated exposure control, adjustment of the mA and/or kV according to patient size, use of iterative reconstruction technique) 2010 [employer]- All Rights Reserved Guidance Fluoroscopy 01/03/18 00:00 IMPRESSION: SUCCESSFUL PLACEMENT OF A 5 FR DUAL LUMEN 48 CM PICC IN THE LEFT BASILIC VEIN. Interventional Vascular Procedure 01/03/18 00:00 IMPRESSION: SUCCESSFUL PLACEMENT OF A 5 FR DUAL LUMEN 48 CM PICC IN THE LEFT BASILIC VEIN. PICC Line Insertion 01/03/18 00:00 IMPRESSION: SUCCESSFUL PLACEMENT OF A 5 FR DUAL LUMEN 48 CM PICC IN THE LEFT BASILIC VEIN. Assessment & Plan - Diagnosis (1) Abdominal wall abscess Is this a current diagnosis for this admission?: Yes Plan: s/p debridement and placement of wound VAC. Her wound culture grew out a pansensitive staph aureus. I have again discussed with the patient the recommendation to go with p.o. antibiotics. However patient is still very angry about having to undergo the PICC line placement that will not be used. She refuses to follow any of my recommendations. She threatened lawsuit if she were to have recurrent infection. I will ask Dr. Vazquez (surgeon who did the debridement ) to talk to the patient tomorrow. I have read infectious disease consult recommendation for doxycycline therapy. They note a penicillin and cephalosporin allergy although patient has been tolerating ertapenem during this hospitalization. I agree with the infectious disease consult recommendation. It is just a matter of convincing the patient that that this is the proper treatment course. Pending home wound VAC to be set up prior to discharge.
[2018-01-04] MEDS: ACETAMINOPHEN 325 MG TABLET PO PRN (00:17)
[2018-01-04] MEDS ORDERED: NORMAL SALINE INJ/PF 0.9% 10 ML SDV IV PRN (02:11)
[2018-01-04] MEDS: OXYCODONE HCL IR 5 MG TABLET PO PRN ×4 (03:07→22:54)
[2018-01-04 06:55] LABS: HEMATOCRIT 30.4 % (36.0-47.0); HEMOGLOBIN 10.4 g/dL (12.0-15.5); MEAN CORPUSCULAR HGB CONC 34.3 g/dL (32.0-36.0); MEAN CORPUSCULAR VOLUME 91 fl (80-97); PLATELET COUNT 368 10^3/uL (150-450); RED BLOOD COUNT 3.35 10^6/uL (3.72-5.28); RED CELL DISTRIBUTION WIDTH 13.4 % (11.5-14.0); WHITE BLOOD COUNT 7.8 10^3/uL (4.0-10.5)
[2018-01-04 07:09] LABS: ANION GAP 8 (5-19); BLOOD UREA NITROGEN 9 mg/dL (7-20); CALCIUM 8.4 mg/dL (8.4-10.2); CARBON DIOXIDE 29 mmol/L (22-30); CHLORIDE 107 mmol/L (98-107); GLUCOSE 83 mg/dL (75-110); POTASSIUM 3.8 mmol/L (3.6-5.0); SODIUM 143.5 mmol/L (137-145)
[2018-01-04 07:58] LABS: ABSOLUTE LYMPHOCYTES# (MANUAL) 1.2 10^3/uL (0.5-4.7); ABSOLUTE MONOCYTES # (MANUAL) 0.5 10^3/uL (0.1-1.4); ABSOLUTE NEUTROPHILS# (MANUAL) 6.2 10^3/uL (1.7-8.2); BAND NEUTROPHILS % (MANUAL) 2 % (3-5); BASOPHILS % (MANUAL) 0 % (0-2); EOSINOPHILS % (MANUAL) 0 % (0-6); LYMPHOCYTES % (MANUAL) 15 % (13-45); METAMYELOCYTES % (MANUAL) 1 % (0); MONOCYTES % (MANUAL) 6 % (3-13); NUCLEATED RED BLOOD CELLS 1 /100 WBC (0); PLATELET CLUMPS PRESENT; SEGMENTED NEUTROPHILS % (MAN) 76 % (42-78); TOTAL CELLS COUNTED 100
[2018-01-04 07:59] LABS: HYPOCHROMASIA 1+; POLYCHROMASIA SLIGHT
[2018-01-04] MEDS: ERTAPENEM SODIUM 1 GM in NORMAL SALINE 50 ML IV SCH (09:21)
[2018-01-04] MEDS: ENOXAPARIN SODIUM INJ 40 MG/0.4 ML DISP.SYRIN SUBCUT SCH (09:22)
--- NOTE | 2018-01-04 17:54 | PDOC PROGRESS REPORT ---
Subjective Progress Note for:: 01/04/18 Subjective:: No adverse events overnight. No new complaints. Vital signs been stable. The main thing that she is concerned about is the fact she got a PICC line and then was told subsequently that she would not need it. We did talk about this a little bit. She is okay now with the idea of going home on oral antibiotics. Reason For Visit: ABDOMINAL WALL CELLULITIS WITH ABSCESS Physical Exam Vital Signs: Temp Pulse Resp BP Pulse Ox 99.0 F 70 16 130/60 H 100 01/04/18 15:44 01/04/18 15:44 01/04/18 15:44 01/04/18 15:44 01/04/18 15:44 Intake & Output 01/03/18 01/04/18 01/05/18 06:59 06:59 06:59 Intake Total 1641 2184 Balance 1641 2184 Weight 120 kg 115.3 kg General appearance: PRESENT: no acute distress, cooperative, morbidly obese Respiratory exam: PRESENT: clear to auscultation roxana, symmetrical, unlabored. ABSENT: accessory muscle use, rales, rhonchi, tachypnea, wheezes Cardiovascular exam: PRESENT: RRR. ABSENT: systolic murmur GI/Abdominal exam: PRESENT: normal bowel sounds, soft, other - There is a wound VAC with a small dressing in the center of her abdomen and just immediately superior to the umbilicus. The tissue surrounding the dressing is non- erythematous. There is no sign of any obvious exudates. The dressing appears clean.. ABSENT: guarding, rebound, tenderness Extremities exam: ABSENT: pedal edema Musculoskeletal exam: PRESENT: normal inspection. ABSENT: deformity Neurological exam: PRESENT: alert, awake, oriented to person, oriented to place , oriented to time Psychiatric exam: PRESENT: appropriate affect, normal mood Skin exam: PRESENT: dry, warm Results Laboratory Results: 01/04/18 06:25 01/04/18 06:25 01/04/18 01/04/18 06:25 06:25 WBC 7.8 RBC 3.35 L Hgb 10.4 L Hct 30.4 L MCV 91 MCH 31.0 MCHC 34.3 RDW 13.4 Plt Count 368 Seg Neutrophils % Not Reportable Lymphocytes % Not Reportable Monocytes % Not Reportable Eosinophils % Not Reportable Basophils % Not Reportable Absolute Neutrophils Not Reportable Absolute Lymphocytes Not Reportable Absolute Monocytes Not Reportable Absolute Eosinophils Not Reportable Absolute Basophils Not Reportable Sodium 143.5 Potassium 3.8 Chloride 107 Carbon Dioxide 29 Anion Gap 8 BUN 9 Creatinine 0.60 Est GFR ( Amer) > 60 Est GFR (Non-Af Amer) > 60 Glucose 83 Calcium 8.4 Impressions: Abdomen/Pelvis CT 12/30/17 00:00 IMPRESSION: Two hypodense collections within the ventral subcutaneous soft tissues with the more inferior and midline collection demonstrating some peripheral enhancement, which is concerning for an abscess. The other hypodense collection may represent a seroma or hematoma. A superimposed infection is not excluded. TECHNICAL DOCUMENTATION: Quality ID # 436: Final reports with documentation of one or more dose reduction techniques (e.g., Automated exposure control, adjustment of the mA and/or kV according to patient size, use of iterative reconstruction technique) 2010 [employer]- All Rights Reserved Guidance Fluoroscopy 01/03/18 00:00 IMPRESSION: SUCCESSFUL PLACEMENT OF A 5 FR DUAL LUMEN 48 CM PICC IN THE LEFT BASILIC VEIN. Interventional Vascular Procedure 01/03/18 00:00 IMPRESSION: SUCCESSFUL PLACEMENT OF A 5 FR DUAL LUMEN 48 CM PICC IN THE LEFT BASILIC VEIN. PICC Line Insertion 01/03/18 00:00 IMPRESSION: SUCCESSFUL PLACEMENT OF A 5 FR DUAL LUMEN 48 CM PICC IN THE LEFT BASILIC VEIN. Assessment & Plan - Diagnosis (1) Abdominal wall abscess Is this a current diagnosis for this admission?: Yes Plan: Status post incision and drainage. Wound grew MSSA. It is pansensitive. She will probably go home tomorrow on doxycycline per ID recommendations. We are awaiting her home wound VAC. (2) Abdominal wall cellulitis Is this a current diagnosis for this admission?: Yes Plan: As above (3) Morbid obesity Is this a current diagnosis for this admission?: Yes Plan: Encourage lifestyle modification - Time Time Spent with patient: 25-34 minutes Anticipated discharge: Home with Homehealth Within: within 24 hours
[2018-01-05] MEDS: ACETAMINOPHEN 325 MG TABLET PO PRN (05:03)
[2018-01-05] MEDS: OXYCODONE HCL IR 5 MG TABLET PO PRN (07:43)
[2018-01-05] MEDS: ERTAPENEM SODIUM 1 GM in NORMAL SALINE 50 ML IV SCH (10:46)
[2018-01-05] MEDS: ENOXAPARIN SODIUM INJ 40 MG/0.4 ML DISP.SYRIN SUBCUT SCH (12:05)
[2018-01-05 14:28] VITALS: BP 117/42
--- NOTE | 2018-01-05 19:00 | PDOC DISCHARGE SUMMARY ---
General - Admit/Disc Date/PCP Admission Date/Primary Care Provider: 12/30/17 03:14 Discharge Date: 01/05/18 - Discharge Diagnosis (1) Abdominal wall abscess Is this a current diagnosis for this admission?: Yes Summary: Status post I&D, grew out MSSA. Wound VAC in place. Outpatient doxycycline p.o. Follow-up with wound care center. (2) Abdominal wall cellulitis Is this a current diagnosis for this admission?: Yes Summary: As above (3) Morbid obesity Is this a current diagnosis for this admission?: Yes Summary: Encourage lifestyle modification - Additional Information Resuscitation Status: Full Code Discharge Diet: Other (Comments) Discharge Activity: Activity As Tolerated, Balance Activity w/Rest, Other Prescriptions: Doxycycline Hyclate 100 mg PO BID #28 capsule Oxycodone HCl [Oxy-Ir 5 mg Tablet] 5 mg PO Q6HP PRN #20 tablet PRN Reason: Home Medications: Doxycycline Hyclate 100 mg PO BID #28 capsule 01/05/18 Oxycodone HCl [Oxy-Ir 5 mg Tablet] 5 mg PO Q6HP PRN #20 tablet 01/05/18 History of Present Illness History of Present Illness: ISABEL DELGADO is a 57 year old female with a history of Crohn's disease, fibromyalgia, arthritis, asthma presents to the emergency department complaining of lower abdominal pain and redness as well as a fever onset Wednesday. Patient tells me that before sending the she was running fevers of [phone] associated with chills, nausea and nonbloody vomiting, she did not realize where that was coming from until Wednesday that she noticed some redness on her abdominal wall that has been worsening over time, now she has some induration in the center, warmth, tenderness and swelling. The patient was in the emergency department but was discharged home. Denies any secretion through the abdomen, shortness of breath, cough, chest pain , patient has chronic diarrhea about 6 bowel movements a day secondary to her Crohn's disease, denies urinary symptoms. Patient states she had a mesh implant due to an hernia done several years ago which became infected and had to be replaced. Patient states her symptoms today are similar to when her first mesh implant became infected. Dr. Fine is aware of the patient and ask hospitalist to admit the patient. CT of the abdomen with 2 collections in the subcutaneous tissue concerning for abscess. Hospital Course Hospital Course: Surgery was consulted and she underwent incision and drainage. She was kept on IV antibiotics. She had a PICC line in anticipation should probably have to have IV antibiotics to treat it but fortunately this was not the case. She grew out MSSA she will finish course of doxycycline per infectious disease recommendations. She will be able to take this p.o. She has a wound VAC in place on her abdomen she will follow-up as an outpatient with the wound care center. Her labs and examination were reassuring she was discharged in good condition. Physical Exam Vital Signs: Temp Pulse Resp BP Pulse Ox 98.7 F 71 18 117/42 L 98 01/05/18 14:22 01/05/18 14:22 01/05/18 14:22 01/05/18 14:22 01/05/18 14:22 Intake & Output 01/04/18 01/05/18 01/06/18 06:59 06:59 06:59 Intake Total 2184 1823 Balance 2184 1823 Weight 115.3 kg 117.1 kg General appearance: PRESENT: no acute distress, cooperative, morbidly obese Respiratory exam: PRESENT: clear to auscultation roxana, unlabored. ABSENT: accessory muscle use, rales, rhonchi, wheezes Cardiovascular exam: PRESENT: RRR. ABSENT: systolic murmur GI/Abdominal exam: PRESENT: normal bowel sounds, soft, other - Small wound VAC dressing in the middle of her abdomen just superior to the umbilicus. Surrounding tissue is nonerythematous. No signs of any exudates.. ABSENT: guarding, rebound, tenderness Extremities exam: PRESENT: full ROM. ABSENT: pedal edema Musculoskeletal exam: PRESENT: ambulatory, normal inspection. ABSENT: deformity Neurological exam: PRESENT: alert, awake, oriented to person, oriented to place , oriented to time Psychiatric exam: PRESENT: appropriate affect, normal mood Skin exam: PRESENT: dry, warm Results Laboratory Results: 01/04/18 06:25 01/04/18 06:25 Impressions: Abdomen/Pelvis CT 12/30/17 00:00 IMPRESSION: Two hypodense collections within the ventral subcutaneous soft tissues with the more inferior and midline collection demonstrating some peripheral enhancement, which is concerning for an abscess. The other hypodense collection may represent a seroma or hematoma. A superimposed infection is not excluded. TECHNICAL DOCUMENTATION: Quality ID # 436: Final reports with documentation of one or more dose reduction techniques (e.g., Automated exposure control, adjustment of the mA and/or kV according to patient size, use of iterative reconstruction technique) 2010 [employer]- All Rights Reserved Guidance Fluoroscopy 01/03/18 00:00 IMPRESSION: SUCCESSFUL PLACEMENT OF A 5 FR DUAL LUMEN 48 CM PICC IN THE LEFT BASILIC VEIN. Interventional Vascular Procedure 01/03/18 00:00 IMPRESSION: SUCCESSFUL PLACEMENT OF A 5 FR DUAL LUMEN 48 CM PICC IN THE LEFT BASILIC VEIN. PICC Line Insertion 01/03/18 00:00 IMPRESSION: SUCCESSFUL PLACEMENT OF A 5 FR DUAL LUMEN 48 CM PICC IN THE LEFT BASILIC VEIN. Qualifiers - * PATIENT BEING DISCHARGED WITH ANY OF THE FOLLOWING DIAGNOSIS: No
== END 2018-01-05 16:30 | disposition home health service (06) | DRG 908 ==
LOC: ER 21:28 → EH 12-30 03:14 → 4N 12-30 04:30
PROVIDERS: ADMIT Internal Medicine; ATTEND Internal Medicine
PROC: 0JD80ZZ Extraction of Abdomen Subcutaneous Tissue and Fascia, Open Approach (ICD-10-PCS; principal; 2017-12-30 16:15)
PROC: 02HV33Z Insertion of Infusion Device into Superior Vena Cava, Percutaneous Approach (ICD-10-PCS; 2018-01-03)
PROC: B518ZZA Fluoroscopy of Superior Vena Cava, Guidance (ICD-10-PCS; 2018-01-03)
PROC: B548ZZA Ultrasonography of Superior Vena Cava, Guidance (ICD-10-PCS; 2018-01-03)
DX: T85.79XA Infection and inflammatory reaction due to other internal prosthetic devices, implants and grafts, initial encounter (principal); L02.211 Cutaneous abscess of abdominal wall; K50.90 Crohn's disease, unspecified, without complications; Z68.41 Body mass index [BMI] 40.0-44.9, adult; L03.311 Cellulitis of abdominal wall; B99.9 Unspecified infectious disease; M79.7 Fibromyalgia; M19.90 Unspecified osteoarthritis, unspecified site; J45.909 Unspecified asthma, uncomplicated; E66.01 Morbid (severe) obesity due to excess calories; B95.61 Methicillin susceptible Staphylococcus aureus infection as the cause of diseases classified elsewhere; R51 Headache; Z90.49 Acquired absence of other specified parts of digestive tract
CPT/HCPCS: 36415; 36569; 700; 74177; 76937; 77001; 80048; 80053; 80202; 82565; 83605; 83735; 85025; 85027; 85610; 85730; 87040; 87070; 87075; 87077; 87186; 87205; 96365; 96366; 96367; 99285; C9290; J0131; J0330; J1100; J1170; J1335; J1642; J1650; J2250; J2405; J2704; J3010; J3370; J3490; J7030; J7060; S0164

== ENCOUNTER 2019-03-07 08:39 | Emergency (ER) | payer MEDICARE, MEDICAID ==
[2019-03-07] MEDS ORDERED: KETOROLAC TROMETHAMINE 60 MG/2 ML SDV IM ONE (09:12)
[2019-03-07] MEDS ORDERED: BACLOFEN 20 MG TABLET PO ONE (09:12)
--- NOTE | 2019-03-07 09:16 | ER Document Report ---
ED General - General Chief Complaint: Abdominal Pain Stated Complaint: RIGHT SIDE PAIN Time Seen by Provider: 03/07/19 09:02 Primary Care Provider: RILEY MOHAMUD FNP-C [NO LOCAL MD] - Follow up as needed Mode of Arrival: Ambulatory Information source: Patient Notes: Chief complaint: Chest pain History of complain:( obtained from----patient) 58 years old female presents today with right lateral chest wall pains since last night. She fell yesterday tripped on a chair face forward. Since then having slight headache as well as pain over the nostrils. Denies any loss of consciousness. Currently denies any focal weakness numbness tingling sensation. Denies any pain over the neck. Right chest wall pain is increased in intensity on movement as well as taking a deep breath. Denies any injury to the upper or lower back. Denies any injury to the upper limbs or lower limbs. Onset: As above Duration: Since yesterday Severity: Mild to moderate Quality: Sharp Context: As explained about Exacerbating factor and relieving factors: As above REVIEW OF SYSTEMS: CONSTITUTIONAL : Denies fever, chills, or sweats. Denies recent illness. EENT: Denies eye, ear, throat, or mouth pain or symptoms. Denies nasal or sinus congestion or discharge. Denies throat, tongue, or mouth swelling or difficulty swallowing. CARDIOVASCULAR: Denies chest pain. Denies palpitations or racing or irregular heart beat. Denies ankle edema. RESPIRATORY: Denies cough, cold, or chest congestion. Denies shortness of breath, difficulty breathing, or wheezing. GASTROINTESTINAL: Denies distention. Denies nausea, vomiting, or diarrhea. Denies blood in vomitus, stools, or per rectum. Denies black, tarry stools. Denies constipation. GENITOURINARY: Denies difficulty urinating, painful urination, burning, frequency, blood in urine, or discharge. FEMALE GENITOURINARY: Denies vaginal bleeding, heavy or abnormal periods, irregular periods. Denies vaginal discharge or odor. MUSCULOSKELETAL: SKIN: Denies rash, lesions or sores. HEMATOLOGIC : Denies easy bruising or bleeding. LYMPHATIC: Denies swollen, enlarged glands. NEUROLOGICAL: Denies confusion or altered mental status. Denies passing out or loss of consciousness. Denies dizziness or lightheadedness. Denies headache. Denies weakness or paralysis or loss of use of either side. Denies problems with gait or speech. Denies sensory loss, numbness, or tingling. Denies seizures. PSYCHIATRIC: Denies anxiety or stress. Denies depression, suicidal ideation, or homicidal ideation. ALL OTHER SYSTEMS REVIEWED AND NEGATIVE. PHYSICAL EXAMINATION: GENERAL: Well-appearing, well-nourished and in mild to moderate acute distress. Obese HEAD: Atraumatic, normocephalic. EYES: Pupils equal round and reactive to light, extraocular movements intact, conjunctiva are normal. ENT: Nares patent, oropharynx clear without exudates. Moist mucous membranes. Slight tenderness over the shaft of the nose noted. No discoloration of the skin. NECK: Normal range of motion, supple without lymphadenopathy Examination of the cervical spinal process nontender, able to flex extend abduct abduct rotate within normal range without any discomfort. LUNGS: Breath sounds clear to auscultation bilaterally and equal. No wheezes rales or rhonchi. HEART: Regular rate and rhythm without murmurs Chest-sharply tender over the right mid axillary line over the lower ribs. ABDOMEN: Soft, nontender, nondistended abdomen. No guarding, no rebound. No masses appreciated. Examination of genitals-deferred Musculoskeletal: Normal range of motion, no pitting or edema. No cyanosis. NEUROLOGICAL: Cranial nerves grossly intact. Normal speech, normal gait. Normal sensory, motor exams PSYCH: Normal mood, normal affect. SKIN: Warm, Dry, normal turgor, no rashes or lesions noted. Dictation was performed using [employer] voice recognition software TRAVEL OUTSIDE OF THE [place] IN LAST 30 DAYS: No - HPI Notes: Dictated - Related Data Allergies/Adverse Reactions: cephalexin monohydrate [From Keflex] Allergy (Severe, Verified 03/07/19 08:43) Anaphylaxis erythromycin base [Erythromycin Base] Allergy (Severe, Verified 03/07/19 08:43) Generalized rash Penicillins Allergy (Severe, Verified 03/07/19 08:43) Shortness of Breath codeine [Codeine] Allergy (Mild, Verified 03/07/19 08:43) adhesive tape [Adhesive Tape] Allergy (Verified 03/07/19 08:43) metronidazole [From Flagyl] Allergy (Verified 03/07/19 08:43) Unknown reaction oxaprozin [From Daypro] Allergy (Verified 03/07/19 08:43) Past Medical History - Social History Smoking Status: Never Smoker Chew tobacco use (# tins/day): No Frequency of alcohol use: Occasional Drug Abuse: None Lives with: Family Family History: Reviewed & Not Pertinent, CAD, DM, Hyperlipidemia Patient has suicidal ideation: No Patient has homicidal ideation: No - Past Medical History Cardiac Medical History: Denies: Hx Atrial Fibrillation, Hx Coronary Artery Disease, Hx Heart Attack, Hx Hypercholesterolemia, Hx Hypertension, Hx Peripheral Vascular Disease, Hx Pulmonary Embolism Pulmonary Medical History: Reports: Hx Asthma Endocrine Medical History: Denies: Hx Diabetes Mellitus Type 1, Hx Diabetes Mellitus Type 2, Hx Graves' Disease Renal/ Medical History: Denies: Hx Peritoneal Dialysis GI Medical History: Reports: Hx Crohn's Disease Musculoskeletal Medical History: Reports Hx Arthritis, Reports Hx Fibromyalgia Psychiatric Medical History: Denies: Hx Depression Infectious Medical History: Denies: Hx MRSA Past Surgical History: Reports: Hx Abdominal Surgery, Hx Appendectomy, Hx Bowel Surgery - small bowel, hernia x 2, Hx Cholecystectomy, Hx Herniorrhaphy - With mesh placement 2, Hx Hysterectomy, Other - Small bowel resection for commplications due to Crohn's Incisional hernia - Immunizations Immunizations up to date: Yes Hx Diphtheria, Pertussis, Tetanus Vaccination: Yes Review of Systems - Review of Systems Notes: Dictated Physical Exam - Vital signs Vitals: Temp Pulse Resp BP Pulse Ox 97.5 F 78 18 133/61 H 100 03/07/19 08:42 03/07/19 08:42 03/07/19 08:42 03/07/19 08:42 03/07/19 08:42 - Notes Notes: Dictated Course - Vital Signs Vital signs: Temp Pulse Resp BP Pulse Ox 97.7 F 80 16 132/72 H 99 03/07/19 11:17 03/07/19 11:17 03/07/19 11:17 03/07/19 11:17 03/07/19 11:17 - Diagnostic Test Radiology reviewed: Reports reviewed - CT of the facial [id number] nasal bone fracture CT of the head-reported by radiologist as no acute bleeding CT of the chest-reported by radiologist as no rib fractures Discharge - Discharge Clinical Impression: Right-sided chest wall pain Nasal bone fracture Qualifiers: Encounter type: initial encounter Fracture type: closed Qualified Code(s): S02.2XXA - Fracture of nasal bones, initial encounter for closed fracture Condition: Fair Disposition: HOME, SELF-CARE Instructions: Chest Wall Pain ([facility]), Fracture of the Nose ([facility]) Additional Instructions: Please give referral for ear nose and throat doctor Prescriptions: Baclofen [Baclofen 10 mg Tablet] 10 mg PO TID #30 tab Diclofenac Sodium [Diclofenac Sodium ER] 100 mg PO DAILY #20 tab.er.24h Hydrocodone Bit/Acetaminophen [Hydrocodon-Acetaminophen 5-325] 1 each PO TID #14 tablet Referrals: RILEY MOHAMUD, THERMOFORMING OPERATOR-C [NO LOCAL MD] - Follow up as needed
--- NOTE | 2019-03-07 10:09 | RADIOLOGY REPORT (SQ) ---
EXAM DESCRIPTION: CT HEAD WITHOUT COMPLETED DATE/TIME: 03/07/2019 9:56 am REASON FOR STUDY: Head injury, facial injury, fall COMPARISON: CT of the head without contrast from 12/26/2017 TECHNIQUE: Axial images acquired through the brain without intravenous contrast. Images reviewed wi th bone, brain and subdural windows. Additional sagittal and coronal reconstructions were generated. Images stored on PACS. All CT scanners at this facility use dose modulation, iterative reconstruction, and/or weight based d osing when appropriate to reduce radiation dose to as low as reasonably achievable (ALARA). [facility]: Dose Right [facility]: CareDose [facility]: Dose Right [facility]: Teradose 4D [facility]: [employer] RADIATION DOSE: CT Rad equipment meets quality standard of care and radiation dose reduction techniq ues were employed. CTDIvol: 53.2 mGy. DLP: 1070 mGy-cm. mGy. LIMITATIONS: None. FINDINGS: There is no acute intracranial hemorrhage, vascular territorial infarct, extra-axial colle ction, mass effect, or midline shift. There is no effacement of cerebral sulci or basal subarachnoid cisterns. The greene-white matter differentiation is preserved. The caliber of the ventricles is con cordant with the degree of sulcation and unchanged from 12/26/2017. 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 There is no calvarial fracture. The paranasal sinuses are clear. The orbits and globes are int act. IMPRESSION: No acute intracranial abnormality. EVIDENCE OF ACUTE STROKE: NO. COMMENT: Quality ID # [id number]: Final reports with documentation of one or more dose reduction techniques (e.g., Automated exposure control, adjustment of the mA and/or kV according to patient size, use of iterative reconstruction technique) TECHNICAL DOCUMENTATION: JOB ID: [id number] [employer]- All Rights Reserved Reading location - IP/workstation name: [email or web address]
--- NOTE | 2019-03-07 10:14 | RADIOLOGY REPORT (SQ) ---
EXAM DESCRIPTION: CT FACIAL AREA WITHOUT COMPLETED DATE/TIME: 03/07/2019 9:56 am REASON FOR STUDY: Head injury, facial injury, fall COMPARISON: None. TECHNIQUE: Noncontrasted images through the facial bones and orbits windowed for bone and soft tissu e. Additional coronal and sagittal reconstructed images reviewed. All images stored on PACS. All CT scanners at this facility use dose modulation, iterative reconstruction, and/or weight based d osing when appropriate to reduce radiation dose to as low as reasonably achievable (ALARA). [facility]: Dose Right [facility]: CareDose [facility]: Dose Right [facility]: Teradose 4D [facility]: [employer] RADIATION DOSE: CT Rad equipment meets quality standard of care and radiation dose reduction techniq ues were employed. CTDIvol: 30.4 mGy. DLP: 578 mGy-cm. mGy. LIMITATIONS: None. FINDINGS: FACIAL BONES: There is a subtle deformity of the right nasal bone - correlate with clinic al findings to exclude a fracture. The nasal septum is midline and intact. There is no other fractu re. ORBITS: There is mild asymmetric right-sided periorbital edema. The right globe is aphakic. The orb its are intact. The extraocular muscles and optic nerve sheath complexes is are symmetric and normal in appearance. PARANASAL SINUSES: The paranasal sinuses are clear without an air-fluid level, evidence of mucoperios teal thickening, or erosion. SOFT TISSUES: As above. INFERIOR BRAIN: No acute findings. OTHER: The TMJs are in anatomic alignment. IMPRESSION: Subtle fracture deformity of the right nasal bone and right-sided periorbital edema. TECHNICAL DOCUMENTATION: JOB ID: [id number] Quality ID # [id number]: Final reports with documentation of one or more dose reduction techniques (e.g., Au tomated exposure control, adjustment of the mA and/or kV according to patient size, use of iterative reconstruction technique) 2010 [employer]- All Rights Reserved Reading location - IP/workstation name: [email or web address]
--- NOTE | 2019-03-07 10:20 | RADIOLOGY REPORT (SQ) ---
EXAM DESCRIPTION: CT CHEST WITHOUT COMPLETED DATE/TIME: 03/07/2019 9:56 am REASON FOR STUDY: Right chest wall pain/rib fracture COMPARISON: None. TECHNIQUE: CT scan performed of the chest without intravenous contrast. Images reviewed with lung, soft tissue and bone windows. Reconstructed coronal and sagittal MPR images reviewed. All images st ored on PACS. All CT scanners at this facility use dose modulation, iterative reconstruction, and/or weight based d osing when appropriate to reduce radiation dose to as low as reasonably achievable (ALARA). [facility]: Dose Right [facility]: CareDose [facility]: Dose Right [facility]: Teradose 4D [facility]: [employer] RADIATION DOSE: CT Rad equipment meets quality standard of care and radiation dose reduction techniq ues were employed. CTDIvol: 14.4 mGy. DLP: 536 mGy-cm. mGy. LIMITATIONS: No technical limitations. FINDINGS: LUNGS AND PLEURA: No consolidation, contusion, pleural effusion or pneumothorax. HILAR AND MEDIASTINAL STRUCTURES: No enlarged mediastinal or hilar adenopathy. No pneumomediastinum or mediastinal hematoma. HEART AND VASCULAR STRUCTURES: Normal caliber of the thoracic aorta without evidence of an intramural hematoma. No cardiomegaly or pericardial effusion. UPPER ABDOMEN: Cholecystectomy clips in the gallbladder fossa and findings of prior ventral hernia re pair on the right side. THYROID AND OTHER SOFT TISSUES: 9 mm hypodense nodule in the right lobe of the thyroid gland. There is no enlarged supraclavicular or axillary adenopathy. There is no hematoma in the subcutaneous tiss ues. BONES: No acute findings. HARDWARE: None. OTHER: No other findings. IMPRESSION: No sequela of trauma to the thorax. TECHNICAL DOCUMENTATION: JOB ID: [id number] Quality ID # [id number]: Final reports with documentation of one or more dose reduction techniques (e.g., Au tomated exposure control, adjustment of the mA and/or kV according to patient size, use of iterative reconstruction technique) 2010 [employer]- All Rights Reserved Reading location - IP/workstation name: [email or web address]
[2019-03-07 11:19] VITALS: BP 132/72
== END 2019-03-07 11:17 | disposition home or self-care (01) ==
LOC: ER 08:39
DX: S02.2XXA Fracture of nasal bones, initial encounter for closed fracture (principal); R07.89 Other chest pain; R51 Headache; W19.XXXA Unspecified fall, initial encounter; J45.909 Unspecified asthma, uncomplicated; Z87.892 Personal history of anaphylaxis; Z88.1 Allergy status to other antibiotic agents; Z88.0 Allergy status to penicillin; Z88.5 Allergy status to narcotic agent; Z91.048 Other nonmedicinal substance allergy status; Z88.8 Allergy status to other drugs, medicaments and biological substances
CPT/HCPCS: 99284; 96372; 70450; 70486; 71250; J1885; A9270; J3490

== ENCOUNTER 2019-06-09 17:34 | Emergency (ER) | payer MEDICARE, MEDICAID ==
[2019-06-09 18:00] VITALS: BP 126/96
[2019-06-09] MEDS ORDERED: KETOROLAC TROMETHAMINE 60 MG/2 ML SDV IM ONE (18:06)
--- NOTE | 2019-06-09 18:13 | ER Document Report ---
HPI - HPI Time Seen by Provider: 06/09/19 18:00 Pain Level: 5 Notes: Patient is a 58-year-old female with a history of fibromyalgia and Crohn's disease who presents complaining of pain to her left scapular area that is been present for 2 months. Patient states that she does do a lot with her arms cleaning daily. Patient states that she has had people try to massage the area out without significant relief. She is otherwise able to eat and drink without difficulty. She is urinating normally and having normal bowel movements. The pain does not radiate. Denies any headache, fever, neck pain, URI, sore throat, chest pain, palpitations, syncope, cough, shortness of breath, wheeze, dyspnea, abdominal pain, nausea/vomiting/diarrhea, urinary retention, dysuria, hematuria, loss of control of bowel or bladder, numbness/tingling, saddle anesthesia, muscle paralysis/weakness, or rash. - ROS Systems Reviewed and Negative: Yes All other systems reviewed and negative - REPRODUCTIVE Reproductive: DENIES: : - MUSCULOSKELETAL Musculoskeletal: REPORTS: Extremity pain - Shoulder pain Past Medical History - Social History Smoking Status: Never Smoker Chew tobacco use (# tins/day): No Frequency of alcohol use: None Drug Abuse: None Family History: Reviewed & Not Pertinent, CAD, DM, Hyperlipidemia Patient has suicidal ideation: No Patient has homicidal ideation: No - Past Medical History Cardiac Medical History: Denies: Hx Atrial Fibrillation, Hx Coronary Artery Disease, Hx Heart Attack, Hx Hypercholesterolemia, Hx Hypertension, Hx Peripheral Vascular Disease, Hx Pulmonary Embolism Pulmonary Medical History: Reports: Hx Asthma Endocrine Medical History: Denies: Hx Diabetes Mellitus Type 1, Hx Diabetes Mellitus Type 2, Hx Graves' Disease Renal/ Medical History: Denies: Hx Peritoneal Dialysis GI Medical History: Reports: Hx Crohn's Disease Musculoskeletal Medical History: Reports Hx Arthritis, Reports Hx Fibromyalgia Psychiatric Medical History: Denies: Hx Depression Infectious Medical History: Denies: Hx MRSA Past Surgical History: Reports: Hx Abdominal Surgery, Hx Appendectomy, Hx Bowel Surgery - small bowel, hernia x 2, Hx Cholecystectomy, Hx Herniorrhaphy - With mesh placement 2, Hx Hysterectomy, Other - Small bowel resection for commplications due to Crohn's Incisional hernia - Immunizations Immunizations up to date: Yes Hx Diphtheria, Pertussis, Tetanus Vaccination: Yes Vertical Provider Document - CONSTITUTIONAL Agree With Documented VS: Yes Notes: PHYSICAL EXAMINATION: GENERAL: Well-appearing, well-nourished and in no acute distress. LUNGS: Breath sounds clear to auscultation bilaterally and equal. No wheezes rales or rhonchi. HEART: Regular rate and rhythm without murmurs, rubs, gallops. Musculoskeletal: Ext's b/l: FROM to passive/active. Strength 5+/5. No deficits noted. No bony tenderness of extremities. Back: FROM to passive/active. Strength 5+/5. No vertebral point tenderness, stepoffs, or deformities. No other bony tenderness, erythema, swelling, or ecchymosis. SLR negative b/l. + reproducible tenderness and trigger point medial mid scapular area. Mild spasming. No SI jt tenderness. No foot drop Extremities: No cyanosis, clubbing, or edema b/l. Peripheral pulses 2+. Capillary refill less than 2 seconds. NEUROLOGICAL: Normal speech, normal gait. Normal sensory, motor exams. Reflexes 2+ b/l. PSYCH: Normal mood, normal affect. SKIN: Warm, Dry, normal turgor, no rashes or lesions noted. - INFECTION CONTROL TRAVEL OUTSIDE OF THE [place] IN LAST 30 DAYS: No Course - Re-evaluation Re-evalutation: 06/09/19 18:10 Patient is an afebrile, well-hydrated, 58-year-old female who presents to the ED with left mid back pain with reproducible trigger point. Vitals are acceptable. PE is otherwise unremarkable for any focal neurological deficits. She has no significant tachycardia, tachypnea, or hypoxia. She is nontoxic-appearing and is tolerating p.o. without difficulties. There are no signs of infection. No other red flag symptoms noted. No other labs or imaging warranted at this time based on H&P. Low suspicion for any meningitis, fracture, expanding/ruptured AAA, cauda equina syndrome, epidural mass lesion/abscess, herniated disc causing severe spinal stenosis, or other systemic infection at this time. Patient is aware that this condition can change from initial presentation and that she needs monitor symptoms closely for any acute changes. I will send her home with a prescription for voltaren gel and robaxin. Conservative measures otherwise for symptoms. Recheck with your PCM in 3-5 days. Consider consult with ort hopedic/physical therapy. Return to the ED with any worsening/concerning symptoms otherwise as reviewed discharge. Patient is in agreement. - Vital Signs Vital signs: Temp Pulse Resp BP Pulse Ox 98.6 F 66 16 126/96 H 100 06/09/19 17:59 06/09/19 17:59 06/09/19 17:59 06/09/19 17:59 06/09/19 17:59 Discharge - Discharge Clinical Impression: Mid back pain on left side Condition: Stable Disposition: HOME, SELF-CARE Additional Instructions: Rest, Ice Tylenol/ibuprofen as needed Light stretches daily Strength exercises as able Moist heat and massage may help F/u with your PCP in 3-5 days for a recheck Consider consult(s) with Orthopedics/physical therapy for ongoing/worsening symptoms Return to the ED with any worsening symptoms and/or development of fever, headache, chest pain, palpitations, syncope, shortness of breath, trouble breathing, abdominal pain, n/v/d, blood in stool/urine, loss of control of bowel/bladder, urinary retention, muscle weakness/paralysis, saddle anesthesia, numbness/tingling, or other worsening symptoms that are concerning to you. Prescriptions: Methocarbamol [Robaxin 750 mg Tablet] 750 mg PO TID PRN #10 tablet PRN Reason: Diclofenac Sodium [Voltaren] 4 gm TP QID PRN #100 gel..gm. PRN Reason: Forms: Elevated Blood Pressure Referrals: MARY CHAUHAN PA-C [Primary Care Provider] - Follow up as needed [facility] [Provider Group] - Follow up as needed
== END 2019-06-09 18:17 | disposition home or self-care (01) ==
LOC: ER 17:34
DX: M54.9 Dorsalgia, unspecified (principal); R25.2 Cramp and spasm; M25.512 Pain in left shoulder; J45.909 Unspecified asthma, uncomplicated
CPT/HCPCS: 99283; 96372; J1885

== ENCOUNTER 2019-11-09 13:08 | Emergency (ER) | payer MEDICAID, MEDICARE ==
--- NOTE | 2019-11-09 13:46 | ER Document Report ---
ED Medical Screen (RME) - General Chief Complaint: Syncope Stated Complaint: SYNCOPE Time Seen by Provider: 11/09/19 13:42 Primary Care Provider: MARY CHAUHAN PA-C [Primary Care Provider] - Follow up as needed Mode of Arrival: Ambulatory Information source: Patient Notes: 59-year-old female presented to ED for complete exhaustion. She states she cannot stay awake. She states she had a syncopal episode yesterday. She states she has a history of Crohn's fibromyalgia arthritis asthma. She states she has had her gallbladder removed her appendix removed half of her large and half of her small intestines removed and she has had multiple abdominal abscesses removed. Patient is alert oriented respirations regular and unlabored speaking in full sentences at this time. I have greeted and performed a rapid initial assessment of this patient. A comprehensive ED assessment and evaluation of the patient, analysis of test results and completion of medical decision making process will be conducted by an additional ED providers. TRAVEL OUTSIDE OF THE [place] IN LAST 30 DAYS: No - Related Data Allergies/Adverse Reactions: cephalexin monohydrate [From Keflex] Allergy (Severe, Verified 06/09/19 17:59) Anaphylaxis erythromycin base [Erythromycin Base] Allergy (Severe, Verified 06/09/19 17:59) Generalized rash Penicillins Allergy (Severe, Verified 06/09/19 17:59) Shortness of Breath codeine [Codeine] Allergy (Mild, Verified 06/09/19 17:59) adhesive tape [Adhesive Tape] Allergy (Verified 06/09/19 17:59) metronidazole [From Flagyl] Allergy (Verified 06/09/19 17:59) Unknown reaction oxaprozin [From Daypro] Allergy (Verified 06/09/19 17:59) Past Medical History - Past Medical History Cardiac Medical History: Denies: Hx Atrial Fibrillation, Hx Coronary Artery Disease, Hx Heart Attack, Hx Hypercholesterolemia, Hx Hypertension, Hx Peripheral Vascular Disease, Hx Pulmonary Embolism Pulmonary Medical History: Reports: Hx Asthma Endocrine Medical History: Denies: Hx Diabetes Mellitus Type 1, Hx Diabetes Mellitus Type 2, Hx Graves' Disease Renal/ Medical History: Denies: Hx Peritoneal Dialysis GI Medical History: Reports: Hx Crohn's Disease Musculoskeltal Medical History: Reports Hx Arthritis, Reports Hx Fibromyalgia Psychiatric Medical History: Denies: Hx Depression Infectious Medical History: Denies: Hx MRSA Past Surgical History: Reports: Hx Abdominal Surgery, Hx Appendectomy, Hx Bowel Surgery - small bowel, hernia x 2, Hx Cholecystectomy, Hx Herniorrhaphy - With mesh placement 2, Hx Hysterectomy, Other - Small bowel resection for commplications due to Crohn's Incisional hernia - Immunizations Immunizations up to date: Yes Hx Diphtheria, Pertussis, Tetanus Vaccination: Yes Physical Exam - Vital signs Vitals: Temp Pulse Resp BP Pulse Ox 99.2 F 87 16 153/78 H 98 11/09/19 13:11/09/19 13:11/09/19 13:11/09/19 13:31 11/09/19 13:31 Course - Vital Signs Vital signs: Temp Pulse Resp BP Pulse Ox 99.2 F 87 16 153/78 H 98 11/09/19 13:31 11/09/19 13:31 11/09/19 13:31 11/09/19 13:31 11/09/19 13:31 Doctor's Discharge - Discharge Referrals: MARY CHAUHAN PA-C [Primary Care Provider] - Follow up as needed
[2019-11-09 14:17] LABS: ABSOLUTE BASOPHILS # (AUTO) 0.1 10^3/uL (0.0-0.2); ABSOLUTE EOSINOPHILS # (AUTO) 0.2 10^3/uL (0.0-0.6); ABSOLUTE LYMPHOCYTES (AUTO) 2.3 10^3/uL (0.5-4.7); ABSOLUTE NEUT (AUTO) 5.9 10^3/uL (1.7-8.2); BASOPHILS % (AUTO) 0.8 % (0-2); EOSINOPHILS % (AUTO) 1.8 % (0-6); HEMATOCRIT 41.8 % (36.0-47.0); HEMOGLOBIN 14.5 g/dL (12.0-15.5); MEAN CORPUSCULAR HEMOGLOBIN 30.3 pg (27.0-33.4); MEAN CORPUSCULAR HGB CONC 34.7 g/dL (32.0-36.0); MEAN CORPUSCULAR VOLUME 88 fl (80-97); MONOCYTES % (AUTO) 10.1 % (3-13); PLATELET COUNT 272 10^3/uL (150-450); RED BLOOD COUNT 4.77 10^6/uL (3.72-5.28); RED CELL DISTRIBUTION WIDTH 13.5 % (11.5-14.0); SEGMENTED NEUTROPHILS % (AUTO) 63.3 % (42-78); TOTAL CELLS COUNTED % (AUTO) 100 %; WHITE BLOOD COUNT 9.4 10^3/uL (4.0-10.5)
[2019-11-09 14:28] LABS: APPEARANCE,URINE CLEAR; BILIRUBIN,URINE NEGATIVE (NEGATIVE); COLOR,URINE YELLOW; GLUCOSE, URINE NEGATIVE (NEGATIVE); KETONES,URINE NEGATIVE (NEGATIVE); LEUKOCYTE ESTERASE,URINE TRACE (NEGATIVE); NITRITE,URINE NEGATIVE (NEGATIVE); PROTEIN,URINE NEGATIVE (NEGATIVE); URINE SPECIFIC GRAVITY 1.021; UROBILINOGEN,URINE NEGATIVE mg/dL (<2.0)
[2019-11-09 14:36] LABS: ALBUMIN 4.2 g/dL (3.5-5.0); ALKALINE PHOSPHATASE 129 U/L (38-126); ANION GAP 9 (5-19); ASPARTATE AMINO TRANSFERASE 25 U/L (14-36); BILIRUBIN,TOTAL 0.4 mg/dL (0.2-1.3); BLOOD UREA NITROGEN 24 mg/dL (7-20); CALCIUM 9.6 mg/dL (8.4-10.2); CARBON DIOXIDE 26 mmol/L (22-30); CHLORIDE 104 mmol/L (98-107); CREATINE KINASE 80 U/L (30-135); GLUCOSE 95 mg/dL (75-110); POTASSIUM 4.9 mmol/L (3.6-5.0); TOTAL PROTEIN 7.5 g/dL (6.3-8.2)
--- NOTE | 2019-11-09 17:57 | ER Document Report ---
ED General - General Chief Complaint: Syncope Stated Complaint: SYNCOPE Time Seen by Provider: 11/09/19 13:42 Primary Care Provider: NICHOLE HOANG MD [ACTIVE STAFF] - Follow up as needed CAE CHURCH MD [ACTIVE STAFF] - Follow up as needed MARY CHAUHAN PA-C [COMMUNITY BASED STAFF] - Follow up as needed Mode of Arrival: Ambulatory Information source: Patient TRAVEL OUTSIDE OF THE [place] 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 The patient denies fevers, chills, sweats, cough, sore throat, runny nose, nausea, vomiting, weight loss but she has some burning with urination, urinary frequency, and chronic diarrhea. The patient says she has no PCP at the moment to follow up with locally. The patient denies sick contacts or recent travel. - Related Data Allergies/Adverse Reactions: cephalexin monohydrate [From Keflex] Allergy (Severe, Verified 06/09/19 17:59) Anaphylaxis erythromycin base [Erythromycin Base] Allergy (Severe, Verified 06/09/19 17:59) Generalized rash Penicillins Allergy (Severe, Verified 06/09/19 17:59) Shortness of Breath codeine [Codeine] Allergy (Mild, Verified 06/09/19 17:59) adhesive tape [Adhesive Tape] Allergy (Verified 06/09/19 17:59) metronidazole [From Flagyl] Allergy (Verified 06/09/19 17:59) Unknown reaction oxaprozin [From Daypro] Allergy (Verified 06/09/19 17:59) Past Medical History - General Information source: Patient - Social History Smoking Status: Never Smoker Frequency of alcohol use: Rare Drug Abuse: None Lives with: Family Family History: Reviewed & Not Pertinent, CAD, DM, Hyperlipidemia Patient has homicidal ideation: No - Past Medical History Cardiac Medical History: Denies: Hx Atrial Fibrillation, Hx Coronary Artery Disease, Hx Heart Attack, Hx Hypercholesterolemia, Hx Hypertension, Hx Peripheral Vascular Disease, Hx Pulmonary Embolism Pulmonary Medical History: Reports: Hx Asthma Endocrine Medical History: Denies: Hx Diabetes Mellitus Type 1, Hx Diabetes Mellitus Type 2, Hx Graves' Disease Renal/ Medical History: Denies: Hx Peritoneal Dialysis GI Medical History: Reports: Hx Crohn's Disease Musculoskeletal Medical History: Reports Hx Arthritis, Reports Hx Fibromyalgia Psychiatric Medical History: Denies: Hx Depression Infectious Medical History: Denies: Hx MRSA Past Surgical History: Reports: Hx Abdominal Surgery, Hx Appendectomy, Hx Bowel Surgery - small bowel, hernia x 2, Hx Cholecystectomy, Hx Herniorrhaphy - With mesh placement 2, Hx Hysterectomy, Other - Small bowel resection for commplications due to Crohn's Incisional hernia - Immunizations Immunizations up to date: Yes Hx Diphtheria, Pertussis, Tetanus Vaccination: Yes Review of Systems - Review of Systems Constitutional: Weakness EENT: No symptoms reported Cardiovascular: No symptoms reported Respiratory: No symptoms reported Gastrointestinal: No symptoms reported Genitourinary: Dysuria, Frequency Female Genitourinary: No symptoms reported Musculoskeletal: No symptoms reported Skin: No symptoms reported Hematologic/Lymphatic: No symptoms reported Neurological/Psychological: No symptoms reported -: Yes All other systems reviewed and negative Physical Exam - Vital signs Vitals: Temp Pulse Resp BP Pulse Ox 99.2 F 87 16 153/78 H 98 11/09/19 13:31 11/09/19 13:31 11/09/19 13:31 11/09/19 13:31 11/09/19 13:31 - Notes Notes: GENERAL: Well-appearing, well-nourished and in no acute distress. HEAD: Atraumatic, normocephalic. EYES: Pupils equal round and reactive to light, extraocular movements intact, sclera anicteric, conjunctiva are normal. ENT: External ears normal, nares patent, oropharynx clear without exudates. Moist mucous membranes. NECK: Normal range of motion, supple without lymphadenopathy or JVD. LUNGS: Breath sounds clear to auscultation bilaterally and equal. No wheezes rales or rhonchi. HEART: Regular rate and rhythm without murmurs, rubs or gallops. ABDOMEN: Soft, nontender, normoactive bowel sounds. No guarding, no rebound. No masses appreciated. EXTREMITIES: Normal range of motion, no pitting or edema. No clubbing or cy anosis. NEUROLOGICAL: Cranial nerves II through XII grossly intact. Normal speech, normal gait. PSYCH: Normal mood, normal affect. SKIN: Warm, Dry, normal turgor, no rashes or lesions noted. Course - Re-evaluation Re-evalutation: 11/09/19 18:52 The patient is here for generalized weakness and exhaustion in the setting of working 15 hours a week 7 days a week for months and potentially having a UTI (she has burning with urination and urinary frequency and UA which could be consistent with a mild UTI). The patient does not sound like she has had true syncope events (just periods of falling asleep). Patient told she needs to get more sleep and she needs to follow up with a PCP locally. Will treat her possible UTI with 3 days of Cipro 250mg BID. - Vital Signs Vital signs: Temp Pulse Resp BP Pulse Ox 99.6 F 89 16 142/60 H 99 11/09/19 18:29 11/09/19 18:29 11/09/19 18:29 11/09/19 18:29 11/09/19 18:29 - Laboratory Result Diagrams: 11/09/19 13:55 11/09/19 13:55 Laboratory results interpreted by me: 11/09/19 11/09/19 13:55 14:00 BUN 24 H Alkaline Phosphatase 129 H Urine Blood MODERATE H Ur Leukocyte Esterase TRACE H - EKG Interpretation by Id EKG shows normal: Sinus rhythm, [place], Intervals, QRS Complexes, ST-T Waves Rate: Normal Rhythm: NSR Additional EKG results interpreted by me: 11/09/19 18:52 PVC noted Discharge - Discharge Clinical Impression: Weakness Disposition: HOME, SELF-CARE Instructions: Urinary Tract Infection ([facility]), Weakness ([facility]) Additional Instructions: Take antibiotics as prescribed for a possible UTI. Get more sleep on a daily basis. Speak with your work about the number of hours you think you can physically work in a day. Follow up with a primary care doctor for primary care needs and to further work up your weakness/exhaustion if symptoms persist despite getting more sleep and being treat for a UTI. Prescriptions: Ciprofloxacin HCl 250 mg PO BID #6 tablet Forms: Return to Work Referrals: MARY CHAUHAN PA-C [COMMUNITY BASED STAFF] - Follow up as needed NICHOLE HOANG MD [ACTIVE STAFF] - Follow up as needed ACE CHURCH MD [ACTIVE STAFF] - Follow up as needed
[2019-11-09 18:30] VITALS: BP 142/60
--- NOTE | 2019-11-09 18:52 | EKG REPORT ---
SEVERITY:- BORDERLINE ECG - SINUS RHYTHM VENTRICULAR PREMATURE COMPLEX LVH BY VOLTAGE : Confirmed by: Lee Dumas MD 09-Nov-2019 18:51:59
== END 2019-11-09 18:30 | disposition home or self-care (01) ==
LOC: ER 13:08
DX: R53.1 Weakness (principal); R55 Syncope and collapse; R35.0 Frequency of micturition; R30.9 Painful micturition, unspecified; R19.7 Diarrhea, unspecified; M79.7 Fibromyalgia; K50.90 Crohn's disease, unspecified, without complications; J45.909 Unspecified asthma, uncomplicated; Z88.8 Allergy status to other drugs, medicaments and biological substances; Z88.1 Allergy status to other antibiotic agents; Z88.0 Allergy status to penicillin
CPT/HCPCS: 36415; 80053; 81001; 82550; 84484; 85025; 93005; 93010; 99284